=== PATIENT | female | born 1940 | race Caucasian/White ===

== ENCOUNTER 2017-11-13 15:22 | Emergency (ER) | payer MEDICARE ==
--- NOTE | 2017-11-13 16:02 | ER Document Report ---
ED General - General Chief Complaint: Back Injury Stated Complaint: DIZZINESS Time Seen by Provider: 11/13/17 15:35 Notes: The patient is a 77-year-old female, PMHx vertigo (takes meclizine at home), hypertension, presents after she had 2 falls yesterday and today. She is feeling like the room is spinning, worse when she quickly moves her head. Patient tried her meclizine earlier today with only mild relief of her symptoms. She did not hit her head denies any injuries from the falls. She denies chest pain, shortness of breath, focal weakness, numbness, tingling, blurry vision, neck stiffness, abdominal pain, syncope or LOC. TRAVEL OUTSIDE OF THE [place] IN LAST 30 DAYS: No - Related Data Allergies/Adverse Reactions: No Known Allergies Allergy (Verified 11/13/17 15:41) Home Medications: Current Home Medications Albuterol Sulfate [Proair Hfa] 8.5 gm IH TID 11/13/17 [History] Albuterol Sulfate [Ventolin Hfa] 1 puff IH DAILY 11/13/17 [History] Amlodipine Besylate [Amlodipine Besylate] 1 tab PO DAILY 11/13/17 [History] Aspirin [Ecotrin] 81 mg PO DAILY 11/13/17 [History] Calcium Carbonate/Vitamin D3 [Calcium 500-Vit D3 200 Tablet] 1 each PO DAILY [History] Citalopram Hydrobromide [Citalopram HBr] 1 tab PO DAILY 11/13/17 [History] Ferrous Sulfate 325 mg PO TID 11/13/17 [History] Gabapentin 300 mg PO TID 11/13/17 [History] Insulin Glargine,Hum.rec.anlog [Touanna Solostar] 50 units SQ DAILY 11/13/17 [ History] Oxybutynin Chloride 5 mg PO BID 11/13/17 [History] Pantoprazole Sodium 40 mg PO DAILY 11/13/17 [History] Simvastatin 40 mg PO DAILY 11/13/17 [History] Tiotropium [place] [Spiriva] 1 puff IN BID 11/13/17 [History] Past Medical History - General Information source: Patient - Social History Smoking Status: Never Smoker Chew tobacco use (# tins/day): No Frequency of alcohol use: None Drug Abuse: None Family History: Reviewed & Not Pertinent Patient has suicidal ideation: No Patient has homicidal ideation: No - Past Medical History Cardiac Medical History: Reports: Hx Heart Attack, Hx Hypercholesterolemia, Hx Hypertension Pulmonary Medical History: Reports: Hx COPD Endocrine Medical History: Reports: Hx Diabetes Mellitus Type 2 Renal/ Medical History: Denies: Hx Peritoneal Dialysis GI Medical History: Reports: Hx Gastroesophageal Reflux Disease Past Surgical History: Reports: Hx Abdominal Surgery, Hx Cholecystectomy, Hx Hysterectomy Review of Systems - Review of Systems Notes: REVIEW OF SYSTEMS: CONSTITUTIONAL: -fevers, -chills EENT: -eye pain, -difficulty swallowing, -nasal congestion CARDIOVASCULAR:-chest pain, -syncope. RESPIRATORY: -cough, -SOB GASTROINTESTINAL: -abdominal pain, - nausea, -vomiting, -diarrhea GENITOURINARY: -dysuria, -hematuria MUSCULOSKELETAL: -back pain, -neck pain SKIN: -rash or skin lesions. HEMATOLOGIC: -easy bruising or bleeding. LYMPHATIC: -swollen, enlarged glands. NEUROLOGICAL: -altered mental status or loss of consciousness, -headache, - neurologic symptoms, +vertiginous symptoms PSYCHIATRIC: -anxiety, -depression. ALL OTHER SYSTEMS REVIEWED AND NEGATIVE. Physical Exam - Vital signs Vitals: Temp Resp BP Pulse Ox 98.1 F 16 169/64 H 100 11/13/17 15:38 11/13/17 15:38 11/13/17 15:38 11/13/17 15:38 - Notes Notes: PHYSICAL EXAMINATION: GENERAL: Well-appearing, well-nourished and in no acute distress. HEAD: Atraumatic, normocephalic. EYES: Pupils equal round and reactive to light, extraocular movements intact, sclera anicteric, conjunctiva are normal. ENT: nares patent, oropharynx clear without exudates. Moist mucous membranes. NECK: Normal range of motion, supple without lymphadenopathy LUNGS: Breath sounds clear to auscultation bilaterally and equal. No wheezes rales or rhonchi. HEART: Regular rate and rhythm without murmurs ABDOMEN: Soft, nontender, normoactive bowel sounds. No guarding, no rebound. No masses appreciated. EXTREMITIES: Normal range of motion, no pitting or edema. No cyanosis. NEUROLOGICAL: Cranial nerves grossly intact. No nystagmus. Positive past- pointing with her left hand. Slowed alternative rapid hand movements. No ataxia. PSYCH: Normal mood, normal affect. SKIN: Warm, Dry, normal turgor, no rashes or lesions noted. Course - Re-evaluation Re-evalutation: Patient with 2 episodes of a fall without any serious injury noted. Due to her age and comorbidities with positive posterior cerebellar signs on physical exam , MRI was obtained to assess for cerebellar infarcts. MRI does not show any evidence of cerebellar involvement. She has a known history of BPPV and takes meclizine. Provided her with a dose of her meclizine and her symptoms improved. Instructed her to follow-up with the primary care physician and neurologist for further evaluation and treatment. Also taught her some Arpan maneuvers to use at home. - Vital Signs Vital signs: Temp Pulse Resp BP Pulse Ox 98.1 F 20 154/59 H 99 11/13/17 15:38 11/13/17 18:01 11/13/17 18:01 11/13/17 18:01 - Laboratory Result Diagrams: 11/13/17 16:30 11/13/17 16:30 Laboratory results interpreted by me: 11/13/17 11/13/17 16:30 16:30 RDW 15.4 H Sodium 145.2 H Chloride 108 H Glucose 152 H Calcium 10.6 H AST 40 H Alkaline Phosphatase 166 H - Diagnostic Test Radiology reviewed: Image reviewed, Reports reviewed Radiology results interpreted by me: MRI: NAD. Chronic changes. CXR: NAD - EKG Interpretation by Me EKG shows normal: Sinus rhythm, Rupert, Intervals, QRS Complexes, ST-T Waves Rate: Normal Discharge - Discharge Clinical Impression: Vertiginous syndrome Condition: Stable Disposition: HOME, SELF-CARE Additional Instructions: Vertigo You have experienced an episode of vertigo -- a whirling dizziness which may be accompanied by nausea and vomiting or staggering. Vertigo is often caused by an irritation of the inner ear, in which case it is called labyrinthitis. It can also be a symptom of a degenerating inner ear, nerve damage, or brain injury. Your physician has evaluated you to determine whether any further testing is necessary. Vertigo is often treated with dramamine or meclizine. These medications are helpful, but stronger medication may be needed if you are vomiting. Rest in bed. You should not drive or operate machinery until completely better. It may take one to three weeks for recovery. If there are new symptoms, such as decreased hearing or vision, severe headache, weakness or faintness, or confusion, call the physician. Forms: Elevated Blood Pressure Referrals: MARANDA LANGLEY MD [ACTIVE STAFF] - Follow up as needed
--- NOTE | 2017-11-13 16:20 | RADIOLOGY REPORT (SQ) ---
EXAM DESCRIPTION: CHEST SINGLE VIEW COMPLETED DATE/TIME: 11/13/2017 4:06 pm REASON FOR STUDY: SOB COMPARISON: Two-view chest 09/03/2013 CT angio chest 09/04/2013 EXAM PARAMETERS: NUMBER OF VIEWS: One view. TECHNIQUE: Single frontal radiographic view of the chest acquired. RADIATION DOSE: NA LIMITATIONS: None. FINDINGS: LUNGS AND PLEURA: No opacities, masses or pneumothorax. No pleural effusion. MEDIASTINUM AND HILAR STRUCTURES: No masses. Contour normal. HEART AND VASCULAR STRUCTURES: Heart normal in size. Normal vasculature. BONES: No acute findings. HARDWARE: None in the chest. OTHER: No other significant finding. IMPRESSION: NO ACUTE RADIOGRAPHIC FINDING IN THE CHEST. TECHNICAL DOCUMENTATION: JOB ID: [id number] [employer]- All Rights Reserved
[2017-11-13 16:42] LABS: ABSOLUTE BASOPHILS # (AUTO) 0.1 10^3/uL (0.0-0.2); ABSOLUTE EOSINOPHILS # (AUTO) 0.1 10^3/uL (0.0-0.6); ABSOLUTE LYMPHOCYTES (AUTO) 2.9 10^3/uL (0.5-4.7); ABSOLUTE MONOCYTES (AUTO) 0.7 10^3/uL (0.1-1.4); ABSOLUTE NEUT (AUTO) 5.7 10^3/uL (1.7-8.2); BASOPHILS % (AUTO) 0.6 % (0-2); EOSINOPHILS % (AUTO) 0.9 % (0-6); HEMATOCRIT 40.7 % (36.0-47.0); HEMOGLOBIN 13.7 g/dL (12.0-15.5); HGB HCT DIFFERENCE 0.4; MEAN CORPUSCULAR HEMOGLOBIN 29.1 pg (27.0-33.4); MEAN CORPUSCULAR HGB CONC 33.7 g/dL (32.0-36.0); MEAN CORPUSCULAR VOLUME 86 fl (80-97); MONOCYTES % (AUTO) 7.4 % (3-13); RED BLOOD COUNT 4.71 10^6/uL (3.72-5.28); RED CELL DISTRIBUTION WIDTH 15.4 % (11.5-14.0); SEGMENTED NEUTROPHILS % (AUTO) 60.1 % (42-78); WHITE BLOOD COUNT 9.5 10^3/uL (4.0-10.5)
[2017-11-13 17:06] LABS: ALANINE AMINOTRANSFERASE 42 U/L (9-52); ALBUMIN 4.3 g/dL (3.5-5.0); ALKALINE PHOSPHATASE 166 U/L (38-126); ANION GAP 15 (5-19); ASPARTATE AMINO TRANSFERASE 40 U/L (14-36); BILIRUBIN,DIRECT 0.3 mg/dL (0.0-0.4); BILIRUBIN,TOTAL 0.5 mg/dL (0.2-1.3); BLOOD UREA NITROGEN 20 mg/dL (7-20); CALCIUM 10.6 mg/dL (8.4-10.2); CARBON DIOXIDE 22 mmol/L (22-30); CHLORIDE 108 mmol/L (98-107); CREATINE KINASE 61 U/L (30-135); CREATININE RESULT 0.72 mg/dL (0.52-1.25); GLUCOSE 152 mg/dL (75-110); LIPASE 99.5 U/L (23-300); POTASSIUM 3.7 mmol/L (3.6-5.0); SODIUM 145.2 mmol/L (137-145); TOTAL PROTEIN 8.1 g/dL (6.3-8.2)
[2017-11-13 17:14] LABS: TROPONIN I < 0.012 ng/mL
--- NOTE | 2017-11-13 17:58 | EKG REPORT ---
SEVERITY:- NORMAL ECG - SINUS RHYTHM : Confirmed by: Lanre Aguirre MD 13-Nov-2017 17:58:20
--- NOTE | 2017-11-13 19:51 | RADIOLOGY REPORT (SQ) ---
EXAM DESCRIPTION: MRI HEAD WITHOUT COMPLETED DATE/TIME: 11/13/2017 7:07 pm REASON FOR STUDY: ataxia, frequent falls COMPARISON: None. TECHNIQUE: Multiplanar imaging includes non-contrasted T1, T2, FLAIR, and diffusion with ADC map seq uences. Images stored on PACS. LIMITATIONS: None. FINDINGS: ANATOMY: No anomalies. Normal vascular flow voids. Pituitary fossa normal. CSF SPACES: Atrophy induced prominence of ventricles and CSF spaces. CEREBRUM: High signal intensity lesions scattered throughout the white matter on FLAIR imaging with d istribution suggesting micro-vascular ischemic changes. No evidence of hemorrhage, mass, or extraaxi al fluid collection. POSTERIOR FOSSA: No signal alteration. No hemorrhage. No edema, masses or mass effect. Internal negro tory canals, cerebello-pontine angles, mastoids normal. DIFFUSION IMAGING: Negative for acute or sub-acute infarction. ORBITS: No masses. Globes normal. PARANASAL SINUSES: No fluid levels. Mucosa normal. OTHER: No other significant finding. IMPRESSION: Negative for acute or sub-acute infarction.ATROPHY AND CHRONIC MICRO-VASCULAR ISCHEMIC C PRISCILLA.. EVIDENCE OF ACUTE STROKE: NO. TECHNICAL DOCUMENTATION: JOB ID: [id number] [place]-[id number] 2010 [employer]- All Rights Reserved
[2017-11-13] MEDS ORDERED: MECLIZINE HCL 25 MG TABLET PO ONE (20:00)
[2017-11-13] MEDS ORDERED: DIAZEPAM 2 MG TABLET PO ONE (20:05)
[2017-11-13 21:09] VITALS: BP 133/58
== END 2017-11-13 20:50 | disposition home or self-care (01) ==
LOC: ER 15:22
DX: H81.10 Benign paroxysmal vertigo, unspecified ear (principal); Z79.899 Other long term (current) drug therapy; I10 Essential (primary) hypertension; I25.2 Old myocardial infarction; J44.9 Chronic obstructive pulmonary disease, unspecified; E11.9 Type 2 diabetes mellitus without complications; Z91.81 History of falling
CPT/HCPCS: 93005; 99285; 36415; 82550; 83690; 85025; 80053; 84484; 83880; 70551; 71010; 93010; A9270 ×2; J3490

== ENCOUNTER 2017-11-21 00:02 | Emergency (ER) | payer MEDICARE ==
[2017-11-21] MEDS ORDERED: METHYLPREDNISOLONE INJ 125 MG/2 ML SDV IV ONE (00:26)
[2017-11-21] MEDS ORDERED: IPRATROPIUM/ALBUTEROL 0.5-2.5 MG/3 ML AMPUL NEB ONE (00:26)
--- NOTE | 2017-11-21 00:52 | ER Document Report ---
ED General - General Chief Complaint: Cough Stated Complaint: SICK Time Seen by Provider: 11/21/17 00:14 Notes: Patient is a 77 year old female who presents to the ED via EMS with a chief complaint of cough since yesterday per son. He states it started yesterday and has not responded to cough medicine or the one albuterol treatment they did at home. H/o COPD not on home O2. Denies chest pain but admits to shortness of breath. Had minimal relief with albuterol treatment x1 at home. Denies NAGEL, orthopnea. She also admits to vertigo with minimal improvement on her antivert. her son at the bedside states she did really well s/p d/c from the department a week ago after a dose of valium with her antivert. States she didnt have any dizziness and felt stable at home after the valium. Her son states she was doing really well until it wore off. He denies any recent falls or head injuries. Not on blood thinners. Per EMS, had a temp of 100.4 and she received 975mg of acetaminophen [employer] MA[employer] TRAVEL OUTSIDE OF THE [place] IN LAST 30 DAYS: No - Related Data Allergies/Adverse Reactions: No Known Allergies Allergy (Verified 11/13/17 15:41) Past Medical History - Social History Smoking Status: Former Smoker Family History: Reviewed & Not Pertinent - Past Medical History Cardiac Medical History: Reports: Hx Heart Attack, Hx Hypercholesterolemia, Hx Hypertension Pulmonary Medical History: Reports: Hx COPD Endocrine Medical History: Reports: Hx Diabetes Mellitus Type 2 Renal/ Medical History: Denies: Hx Peritoneal Dialysis GI Medical History: Reports: Hx Gastroesophageal Reflux Disease Past Surgical History: Reports: Hx Abdominal Surgery, Hx Cholecystectomy, Hx Hysterectomy Review of Systems - Review of Systems Constitutional: See HPI EENT: No symptoms reported Cardiovascular: No symptoms reported Respiratory: See HPI Gastrointestinal: No symptoms reported Genitourinary: No symptoms reported Neurological/Psychological: See HPI -: Yes All other systems reviewed and negative Physical Exam - Vital signs Vitals: Temp Resp 100.4 F 20 11/21/17 00:25 11/21/17 00:25 - Notes Notes: PHYSICAL EXAM GENERAL: Alert, interacts well. HEAD: Normocephalic, atraumatic. EYES: Pupils equal, round, and reactive to light. Extraocular movements intact. positive yazmin hallpike with horizontal nystagmus ENT: Oral mucosa moist, tongue midline. NECK: Full range of motion. Supple. Trachea midline. LUNGS: Bilateral rhonchi without what when he Premier Vicryl and then she is related to be set really she is is is to 2 she look is is respiratory distress. HEART: Regular rate and rhythm. No murmurs, gallops, or rubs. ABDOMEN: Soft, nondistended, nontender. No guarding, rebound, or rigidity.. Bowel sounds present in all 4 quadrants. EXTREMITIES: Moves all 4 extremities spontaneously. No edema, radial and dorsalis pedis pulses 2/4 bilaterally. No cyanosis. NEUROLOGICAL: Alert and oriented x4. Normal speech. Face symmetric. Tongue protrudes midline. Extraocular motions intact. Pupils are 2 mm and equally reactive. Normal speech, normal gait. 5 out of 5 strength in both the distal and proximal upper and lower extremities bilaterally. Sensation is grossly intact throughout. Finger to nose testing normal. Pronator drift normal. PSYCH: Normal affect, normal mood. SKIN: Warm, dry, normal turgor. No rashes or lesions noted. Course - Re-evaluation Re-evalutation: 11/21/17 04:45 Patient is a 77-year-old female who is hemodynamically stable, no acute distress and initially afebrile. Upon recheck of her temperature it was down to 98.4. Patient states she clinically feels better after nebulizer treatments. No evidence of pneumonia noted on chest x-ray. White blood cells elevated at 15. Chemistry stable without any evidence of electrolyte abnormalities, renal failure. Urinalysis shows evidence of UTI. Patient be treated with IV antibiotics and p.o. upon discharge. Patient and son at the bedside requesting to be discharged home. Regarding her vertigo, she states complete symptom relief after antivert and valium. Had a normal MRI within the past 7 days. No evidence of abnormal gait during ambulation or hypoxia. Will discharge home and to follow up with PCP and ENT. - Vital Signs Vital signs: Temp Pulse Resp BP Pulse Ox 97.9 F 15 155/56 H 93 11/21/17 04:48 11/21/17 05:01 11/21/17 05:01 11/21/17 05:01 - Laboratory Result Diagrams: 11/21/17 01:10 11/21/17 01:10 Laboratory results interpreted by me: 11/21/17 11/21/17 11/21/17 01:10 01:10 01:56 WBC 15.6 H RDW 14.9 H Seg Neutrophils % 80.6 H Lymphocytes % 9.2 L Absolute Neutrophils 12.6 H Glucose 350 H POC Glucose 363 H Alkaline Phosphatase 151 H Urine Glucose (UA) Urine Urobilinogen Ur Leukocyte Esterase 11/21/17 11/21/17 03:10 04:50 WBC RDW Seg Neutrophils % Lymphocytes % Absolute Neutrophils Glucose POC Glucose 287 H Alkaline Phosphatase Urine Glucose (UA) >=500 H Urine Urobilinogen 2.0 H Ur Leukocyte Esterase MODERATE H - Diagnostic Test Radiology reviewed: Image reviewed, Reports reviewed - EKG Interpretation by Me EKG shows normal: Sinus rhythm Rate: Normal Rhythm: NSR When compared to previous EKG there are: No significant change Discharge - Discharge Clinical Impression: COPD exacerbation, Vertigo UTI (urinary tract infection) Qualifiers: Urinary tract infection type: acute cystitis Hematuria presence: without hematuria Qualified Code(s): N30.00 - Acute cystitis without hematuria Condition: Good Disposition: HOME, SELF-CARE Additional Instructions: Chronic Obstructive Lung Disease You have chronic obstructive lung disease (COPD). The symptoms come from emphysema (damage to small airways, with trapping of air in large sacks in the lung) and chronic bronchitis (repeated infection and damage to larger airways). The cause is almost always cigarette smoking, although dust exposure, asthma, and infections contribute. You should avoid fumes, dust, and smoke (especially tobacco smoke). Your condition will flare from time to time. There is no cure, but the symptoms can be treated. Bronchodilators (asthma medicine) are often helpful. Antibiotics help when infection is present. When shortness of breath is severe, we may prescribe cortisone medication. If medicine doesn't help enough, we can arrange for you to have an oxygen tank at home. Notify your doctor at once if sputum becomes thick, foul, or bloody, if you develop a fever or chest pain, or if your shortness of breath worsens. Vertigo You have experienced an episode of vertigo -- a whirling dizziness which may be accompanied by nausea and vomiting or staggering. Vertigo is often caused by an irritation of the inner ear, in which case it is called labyrinthitis. It can also be a symptom of a degenerating inner ear, nerve damage, or brain injury. Your physician has evaluated you to determine whether any further testing is necessary. Vertigo is often treated with dramamine or meclizine. These medications are helpful, but stronger medication may be needed if you are vomiting. Rest in bed. You should not drive or operate machinery until completely better. It may take one to three weeks for recovery. If there are new symptoms, such as decreased hearing or vision, severe headache, weakness or faintness, or confusion, call the physician. PYELONEPHRITIS: Your evaluation shows evidence of pyelonephritis. This is an infection in the kidney. Typical symptoms are fever, pain in the flank, pain on urination, and frequent urination. Many cases of pyelonephritis can be treated at home. Hospital care may be necessary for patients who are very ill, or elderly or . Pyelonephritis is treated with antibiotics. Be sure to take all the medication as prescribed. Drink plenty of liquids (about three quarts per day) . You may take acetaminophen for fever. You should feel significantly improved within two days. You should have a recheck of your urine in about one week to insure that the infection is gone. Return for a re-examination if your symptoms worsen in any way -- such as high fever, shaking chills, severe weakness or dizziness, severe pain, or inability to pass your urine. ANTIBIOTIC THERAPY: You have been given an antibiotic prescription. It's important that you take all the medication, unless instructed otherwise by your physician. Failure to complete the entire course can result in relapse of your condition. Common side effects of antibiotics include nausea, intestinal cramping, or diarrhea. Women may develop vaginal yeast infections, and babies can get yeast (thrush) in the mouth following the use of antibiotics. Contact your physician if you develop significant side effects from this medication. Allergy to this antibiotic can result in hives, wheezing, faintness, or itching. If symptoms of allergy occur, stop the medication and call the doctor. ROCEPHIN: You have been given an injection of an antibiotic called Rocephin ( ceftriaxone). Sometimes the injection must be combined with antibiotic pills. For some infections, such as an uncomplicated ear infection, Rocephin provides all the antibiotic that's needed. The antibiotic will be in your body for about two days. For serious infections, we usually repeat doses of Rocephin daily. Side effects are very unusual following a shot. Women may develop vaginal yeast infections, and babies can get yeast (thrush) in the mouth following the use of antibiotics. Contact your physician if you have symptoms with this medication. Allergy to this antibiotic can result in hives, wheezing, faintness, or itching. If symptoms of allergy occur, call the doctor at once. CEPHALEXIN: The antibiotic you've been prescribed is a member of the cephalosporin class. This type of antibiotic covers a wide variety of infections, including those of the skin, lungs, and urinary tract. It's useful for staph infections. This antibiotic is slightly similar to the penicillin family. In rare cases , a person who is allergic to penicillin will also be allergic to this medication. If you have had a severe allergic reaction to penicillin, and have not taken this antibiotic since that time, notify your doctor. Antibiotics which cover many germs ("broad spectrum" antibiotics) are more likely to cause diarrhea or "yeast" infections. Women prone to vaginal yeast problems may suffer an attack after taking this antibiotic. In infants, oral thrush (white spots "stuck" on the cheek) or yeast diaper rash may result. See your doctor if these problems occur. Call at once if you develop itching, hives , shortness of breath, or lightheadedness. USE OF ACETAMINOPHEN (Tylenol): Acetaminophen may be taken for pain relief or fever control. It's much safer than aspirin, offering a wider range of "safe" dosages. It is safe during . Some brand names are Tylenol, Panadol, Datril, Anacin 3, Tempra, and Liquiprin. Acetaminophen can be repeated every four hours. The following are maximum recommended dosages: >89 pounds or adults 650 mg to 900 mg Acetaminophen can be repeated every four hours. Maximum dose not to exceed 4000 mg a day. FOLLOW-UP CARE: If you have been referred to a physician for follow-up care, call the physician s office for an appointment as you were instructed or within the next two days. If you experience worsening or a significant change in your symptoms, notify the physician immediately or return to the Emergency Department at any time for re-evaluation. Prescriptions: Cephalexin Monohydrate [Keflex 500 mg Capsule] 500 mg PO Q8H 10 Days capsule Diazepam [Valium 2 mg Tablet] 2 mg PO BID #14 tablet Prednisone 20 mg PO TID 5 Days tablet Referrals: [facility] [Provider Group] - Follow up in 1 week DESTINEE WHITE MD [ACTIVE STAFF] - Follow up in 1 week ANSELMO DALAL MD [ACTIVE STAFF] - Follow up in 1 week FRANCISCO CHAVEZ DO [ASSOCIATE] - Follow up in 1 week
[2017-11-21] MEDS: ALBUTEROL SULFATE 0.083% NEB 2.5 MG/3 ML AMPUL NEB SCH ×2 (01:00→01:02)
--- NOTE | 2017-11-21 01:17 | RADIOLOGY REPORT (SQ) ---
EXAM DESCRIPTION: CHEST SINGLE VIEW CLINICAL HISTORY: cough, shortness of breath COMPARISON: 09/13/2017 FINDINGS: Single frontal view of the chest. Tortuosity of thoracic aorta. Leads overlie the chest. Heart is not enlarged. No consolidation, pneumothorax, or pleural effusion. No displaced rib fractures identified. Upper abdominal soft tissues are unremarkable. IMPRESSION: 1. No acute pulmonary process identified.
[2017-11-21 01:23] LABS: ABSOLUTE BASOPHILS # (AUTO) 0.1 10^3/uL (0.0-0.2); ABSOLUTE EOSINOPHILS # (AUTO) 0.1 10^3/uL (0.0-0.6); ABSOLUTE LYMPHOCYTES (AUTO) 1.4 10^3/uL (0.5-4.7); ABSOLUTE MONOCYTES (AUTO) 1.4 10^3/uL (0.1-1.4); ABSOLUTE NEUT (AUTO) 12.6 10^3/uL (1.7-8.2); BASOPHILS % (AUTO) 0.4 % (0-2); EOSINOPHILS % (AUTO) 0.9 % (0-6); HEMATOCRIT 37.6 % (36.0-47.0); HEMOGLOBIN 12.7 g/dL (12.0-15.5); LYMPHOCYTES % (AUTO) 9.2 % (13-45); MEAN CORPUSCULAR HEMOGLOBIN 29.2 pg (27.0-33.4); MEAN CORPUSCULAR HGB CONC 33.8 g/dL (32.0-36.0); MEAN CORPUSCULAR VOLUME 87 fl (80-97); MONOCYTES % (AUTO) 8.9 % (3-13); PLATELET COUNT 224 10^3/uL (150-450); RED BLOOD COUNT 4.33 10^6/uL (3.72-5.28); RED CELL DISTRIBUTION WIDTH 14.9 % (11.5-14.0); SEGMENTED NEUTROPHILS % (AUTO) 80.6 % (42-78); TOTAL CELLS COUNTED % (AUTO) 100 %; WHITE BLOOD COUNT 15.6 10^3/uL (4.0-10.5)
[2017-11-21 01:37] LABS: ALANINE AMINOTRANSFERASE 45 U/L (9-52); ALBUMIN 3.8 g/dL (3.5-5.0); ALKALINE PHOSPHATASE 151 U/L (38-126); ANION GAP 14 (5-19); ASPARTATE AMINO TRANSFERASE 23 U/L (14-36); BILIRUBIN,DIRECT 0.3 mg/dL (0.0-0.4); BILIRUBIN,TOTAL 0.8 mg/dL (0.2-1.3); BLOOD UREA NITROGEN 19 mg/dL (7-20); CALCIUM 10.2 mg/dL (8.4-10.2); CARBON DIOXIDE 23 mmol/L (22-30); CHLORIDE 106 mmol/L (98-107); GLUCOSE 350 mg/dL (75-110); POTASSIUM 3.8 mmol/L (3.6-5.0); SODIUM 143.1 mmol/L (137-145); TOTAL PROTEIN 7.2 g/dL (6.3-8.2)
[2017-11-21 01:50] LABS: NT PRO BNP 117 pg/mL (<450)
[2017-11-21 01:52] LABS: TROPONIN I < 0.012 ng/mL
[2017-11-21] MEDS ORDERED: INSULIN LISPRO 100 UNIT/ML 3 ML VIAL SUBCUT ONE (01:59)
--- NOTE | 2017-11-21 02:50 | RADIOLOGY REPORT (SQ) ---
EXAM DESCRIPTION: ACUTE ABDOMEN SERIES CLINICAL HISTORY: abdominal distension COMPARISON: None. FINDINGS: Single view of the chest and 2 views of the abdomen. Atherosclerotic calcification aortic arch. Heart is not enlarged. No consolidation, pneumothorax, or pleural effusion. Leads overlie the chest. No displaced rib fractures. Upright spine views of the abdomen demonstrate scattered loops of nondilated air-filled large and small bowel. Moderate amount stool within the colon. Mild degenerative change of the hips and lumbar spine. Leads overlie the abdomen. No free intraperitoneal air. IMPRESSION: 1. No acute pulmonary process. Nonobstructive bowel gas pattern.
[2017-11-21 03:55] LABS: APPEARANCE,URINE SLIGHTLY-CLOUDY; BILIRUBIN,URINE NEGATIVE (NEGATIVE); COLOR,URINE YELLOW; GLUCOSE, URINE >=500 mg/dL (NEGATIVE); KETONES,URINE NEGATIVE (NEGATIVE); LEUKOCYTE ESTERASE,URINE MODERATE (NEGATIVE); NITRITE,URINE NEGATIVE (NEGATIVE); PROTEIN,URINE NEGATIVE (NEGATIVE); URINE SPECIFIC GRAVITY 1.027
[2017-11-21] MEDS ORDERED: CEFTRIAXONE 1 GM/D5W RTU 1 GM/50 ML RTUPB IV ONE (04:13)
[2017-11-21] MEDS ORDERED: DIAZEPAM 2 MG TABLET PO ONE (04:30)
[2017-11-21] MEDS ORDERED: MECLIZINE HCL 25 MG TABLET PO ONE (04:30)
[2017-11-21 05:23] VITALS: BP 155/56
--- NOTE | 2017-11-23 12:38 | EKG REPORT ---
SEVERITY:- NORMAL ECG - SINUS RHYTHM : Confirmed by: Giovana Morales MD 23-Nov-2017 12:37:31
== END 2017-11-21 05:24 | disposition home or self-care (01) ==
LOC: ER 00:02
DX: J44.1 Chronic obstructive pulmonary disease with (acute) exacerbation (principal); N30.00 Acute cystitis without hematuria; R05 Cough; R06.02 Shortness of breath; R42 Dizziness and giddiness; I10 Essential (primary) hypertension; I25.2 Old myocardial infarction; E11.9 Type 2 diabetes mellitus without complications; Z87.891 Personal history of nicotine dependence
CPT/HCPCS: 93005; 94640 ×2; 99284; 96375; 96365; 36415; 87086; 82962; 85025; 80053; 81001; 84484; 83880; 74022; 71010; 93010; A9270 ×5; J2930; J0696; J1815; J3490; J7620

== ENCOUNTER 2018-04-13 02:28 | Emergency (ER) | payer MEDICARE ==
--- NOTE | 2018-04-13 02:48 | ER Document Report ---
ED General - General Mode of Arrival: Medic Information source: Patient, Emergency Med Personnel TRAVEL OUTSIDE OF THE [place] IN LAST 30 DAYS: No - General Stated Complaint: FALL/LEG PAIN Time Seen by Provider: 04/13/18 02:33 Notes: Patient is a 77 year old female with a history of dementia presents to the emergency department via EMS complaining of right leg pain. EMS states the patient fell last week after attempting to sit on a toilet, injuring her right leg and has been going to physical therapy. EMS further states the patient has an xray of her right leg scheduled with her physical therapist. EMS states she was alert and oriented prior to arrival to the emergency department. At bedside patient is alert to place but not respond when asked questions on person or time. EMS states the family reports feeling like the patient is not quite herself stating she seems confused when she is normally very independent. ( DEVONTE MTZ) - Related Data Allergies/Adverse Reactions: No Known Allergies Allergy (Verified 11/13/17 15:41) Past Medical History - General Information source: Patient, Emergency Med Personnel - Social History Smoking Status: Unknown if Ever Smoked Family History: Reviewed & Not Pertinent - Past Medical History Cardiac Medical History: Reports: Hx Heart Attack, Hx Hypercholesterolemia, Hx Hypertension Pulmonary Medical History: Reports: Hx COPD Endocrine Medical History: Reports: Hx Diabetes Mellitus Type 2 GI Medical History: Reports: Hx Gastroesophageal Reflux Disease Past Surgical History: Reports: Hx Abdominal Surgery, Hx Cholecystectomy, Hx Hysterectomy Review of Systems - Review of Systems Constitutional: No symptoms reported EENT: No symptoms reported Cardiovascular: No symptoms reported Respiratory: No symptoms reported Gastrointestinal: No symptoms reported Female Genitourinary: No symptoms reported Musculoskeletal: See HPI Skin: No symptoms reported Hematologic/Lymphatic: No symptoms reported Neurological/Psychological: No symptoms reported -: Yes All other systems reviewed and negative Physical Exam - Vital signs Vitals: Temp Pulse Resp BP Pulse Ox 99.8 F 90 18 184/69 H 97 04/13/18 02:30 04/13/18 02:30 04/13/18 02:30 04/13/18 02:30 04/13/18 02:30 - Notes Notes: GENERAL: Alert, follows some commands. No acute distress. HEAD: Normocephalic, atraumatic. EYES: Pupils equal, round, and reactive to light. Extraocular movements intact. ENT: Oral mucosa moist, tongue midline. NECK: Full range of motion. Supple. Trachea midline. LUNGS: Clear to auscultation bilaterally, no wheezes, rales, or rhonchi. No respiratory distress. HEART: Regular rate and rhythm. No murmurs, gallops, or rubs. ABDOMEN: Soft, non-tender. Non-distended. Bowel sounds present in all 4 quadrants. EXTREMITIES: Moves all 4 extremities spontaneously, intermittent tremors of the BLE and BUE. Hematoma to the lateral aspect of the right thigh with extensive ecchymosis down to just behind the right knee. Tender to palpation to the right greater trochanter. FROM of right hip, no pain with log roll, 5/5 muscle strength when attempting to resist exam. Radial and dorsalis pedis pulses 2/4 bilaterally. No cyanosis. NEUROLOGICAL: Fluctuating orientation, EMS reports alert and oriented x3, at bedside patient is alert to place but not to time or person. Normal speech. PSYCH: Normal affect, normal mood. SKIN: Warm, dry, and normal turgor. (DEVONTE MTZ) Course - Re-evaluation Re-evalutation: 04/13/18 04:41 Physical exam shows a large hematoma affecting the muscle however x-ray does not show any fracture. Patient is able to be moved through full range of motion and has 5 out of 5 muscle strength. Doubt occult fracture, no indication for CT scan at this time. Patient will be discharged back to home. ( CUCO KEARNEY) - Vital Signs Vital signs: Temp Pulse Resp BP Pulse Ox 99.8 F 90 18 184/69 H 97 04/13/18 02:30 04/13/18 02:30 04/13/18 02:30 04/13/18 02:30 04/13/18 02:30 Discharge - Discharge Clinical Impression: Acute right hip pain, Essential hypertension Dementia Qualifiers: Dementia type: Alzheimer's disease Alzheimer's disease onset: unspecified onset Dementia behavioral disturbance: without behavioral disturbance Qualified Code(s): G30.9 - Alzheimer's disease, unspecified Condition: Stable Disposition: HOME, SELF-CARE Additional Instructions: Today your x-ray did not show any signs of a broken hip. I was able to move your leg through its full range of motion without pain. It is very unlikely that you have a fracture given the negative x-ray and the lack of pain when I move her hip however if your pain persists you may consider getting a CAT scan of the right hip. Serge Attestation: 04/13/18 06:13 I personally performed the services described in the documentation, reviewed and edited the documentation which was dictated to the scribe in my presence, and it accurately records my words and actions. (CUCO KEARNEY) Faizaibe Documentation - Scribe Written by Serge:: Serge Cowan, 04/13/2018 02:54 acting as scribe for :: Wendy
--- NOTE | 2018-04-13 03:34 | RADIOLOGY REPORT (SQ) ---
EXAM DESCRIPTION: Right hip, 2 views CLINICAL HISTORY: fall 1 week ago with pain with ambulation COMPARISON: None. FINDINGS: Single view of the pelvis and 2 views of the right hip. Osteopenia. Atherosclerotic vascular calcification. Mild bilateral joint space narrowing. No acute fracture identified. Pelvic soft tissues are unremarkable. IMPRESSION: 1. No acute fracture or dislocation.
[2018-04-13 08:58] VITALS: BP 152/50
== END 2018-04-13 08:58 | disposition home or self-care (01) ==
LOC: ER 02:28
DX: M25.551 Pain in right hip (principal); S70.11XA Contusion of right thigh, initial encounter; W19.XXXA Unspecified fall, initial encounter; Y93.89 Activity, other specified; G30.9 Alzheimer's disease, unspecified; F02.80 Dementia in other diseases classified elsewhere, unspecified severity, without behavioral disturbance, psychotic disturbance, mood disturbance, and anxiety; I10 Essential (primary) hypertension; J44.9 Chronic obstructive pulmonary disease, unspecified; E11.9 Type 2 diabetes mellitus without complications
CPT/HCPCS: 99284

== ENCOUNTER 2018-04-13 20:03 | Inpatient (IN) | payer MEDICARE ==
--- NOTE | 2018-04-13 20:23 | ER Document Report ---
ED General - General Mode of Arrival: Medic Cannot obtain history due to: Altered mental status TRAVEL OUTSIDE OF THE [place] IN LAST 30 DAYS: No <LOBO BLOUNT - Last Filed: 04/14/18 00:04> <TASHA DAO - Last Filed: 04/14/18 01:22> - General Chief Complaint: Altered Mental Status Stated Complaint: AMS Time Seen by Provider: 04/13/18 20:07 Notes: Patient is a 77-year-old female who presents to the emergency department today with complaints of altered mental status. Patient was seen and discharged from this facility earlier today for evaluation of right hip secondary to a fall. Patient was saturating 86% on room air with a fever of 104.0F according to EMS. History is limited secondary to the patient's medical condition. (LOBO BLOUNT) - Related Data Allergies/Adverse Reactions: No Known Allergies Allergy (Verified 11/13/17 15:41) Past Medical History - General Information source: [facility] Records - Social History Smoking Status: Unknown if Ever Smoked Frequency of alcohol use: None Drug Abuse: None Family History: Reviewed & Not Pertinent - Past Medical History Cardiac Medical History: Reports: Hx Heart Attack, Hx Hypercholesterolemia, Hx Hypertension Pulmonary Medical History: Reports: Hx COPD Endocrine Medical History: Reports: Hx Diabetes Mellitus Type 2 GI Medical History: Reports: Hx Gastroesophageal Reflux Disease Past Surgical History: Reports: Hx Abdominal Surgery, Hx Cholecystectomy, Hx Hysterectomy <LOBO BLOUNT - Last Filed: 04/14/18 00:04> Review of Systems - Review of Systems -: Yes ROS unobtainable due to patient's medical condition <LOBO BLOUNT - Last Filed: 04/14/18 00:04> Physical Exam - Vital signs Interpretation: Hypotensive, Tachycardic, Hypoxic, Tachypneic, Febrile - General General appearance: Lethargic In distress: Moderate - Respiratory Respiratory status: Respiratory distress Breath sounds: Decreased air movement - at bases, Wheezing - Cardiovascular Rhythm: Regular, Tachycardia - Abdominal Tenderness: Nontender - Back Back: Nontender - Extremities General upper extremity: Tender - R hip Shoulder: Nontender Arm: Nontender Elbow: Nontender Forearm: Nontender Wrist: Nontender Hand: Nontender Hip: Tender Thigh: Nontender Knee: Nontender Calf: Nontender Ankle: Normal Foot: Normal - pulses intact b/l - Neurological Cognition: Confused Lawley Coma Scale Eye Opening: To Pain Lawley Coma Scale Verbal: Confused Lawley Coma Scale Motor: Localizes to Pain [place]ley Coma Scale Total: 11 - Skin Skin Temperature: Hot <TASHA DAO - Last Filed: 04/14/18 01:22> - Vital signs Vitals: Temp Pulse Resp BP Pulse Ox 104 F H 126 H 33 H 128/50 H 95 04/13/18 20:03 04/13/18 20:03 04/13/18 20:03 04/13/18 20:03 04/13/18 20:03 Course - Laboratory Result Diagrams: 04/13/18 20:05 04/13/18 20:05 <LOBO BLOUNT - Last Filed: 04/14/18 00:04> - Laboratory Result Diagrams: 04/13/18 20:05 04/13/18 20:05 <TASHA DAO - Last Filed: 04/14/18 01:22> - Re-evaluation Re-evalutation: 04/13 Patient is a 77-year-old female who comes in with altered mental status, fever, tachycardia, and hypotension. Patient's oxygen saturation was low when first evaluated by EMS. Patient was placed on BiPAP here and had been given Tylenol prior to arrival. Her vital signs have normalized and she is in no further respiratory distress on BiPAP. Her mentation has improved. Likely source is pulmonary. Patient had scan of head, chest, abdomen and pelvis to further evaluate for altered mental status or any further trauma. No acute findings found. Patient has old bilateral chronic appearing humerus fractures. No evidence for hip fracture. Still likely source is pulmonary. Patient has been discussed with the hospitalist service. Discussed with family and patient is a full code. She will be admitted for the ICU for respiratory distress and sepsis. Urine and blood cultures have been sent. Antibiotics have been initiated. (TASHA DAO) - Vital Signs Vital signs: Temp Pulse Resp BP Pulse Ox 104 F H 118 H 16 112/51 L 98 04/13/18 20:03 04/13/18 20:07 04/14/18 00:40 04/13/18 23:43 04/14/18 00:40 - Laboratory Laboratory results interpreted by me: 04/13/18 04/13/18 04/13/18 20:05 20:05 20:05 WBC 13.4 H Hgb 11.6 L Hct 34.4 L Seg Neutrophils % 88.1 H Lymphocytes % 6.0 L Absolute Neutrophils 11.8 H PT 16.2 H VBG pH VBG pCO2 Potassium 3.3 L BUN 24 H Glucose 304 H Lactic Acid Direct Bilirubin 0.5 H Albumin 3.3 L Urine Protein Urine Glucose (UA) Urine Ketones Urine Blood Urine Urobilinogen Ur Leukocyte Esterase 04/13/18 04/13/18 04/13/18 20:05 20:05 20:28 WBC Hgb Hct Seg Neutrophils % Lymphocytes % Absolute Neutrophils PT VBG pH 7.50 H VBG pCO2 32.7 L Potassium BUN Glucose Lactic Acid 2.4 H Direct Bilirubin Albumin Urine Protein 100 H Urine Glucose (UA) >=500 H Urine Ketones 20 H Urine Blood SMALL H Urine Urobilinogen 4.0 H Ur Leukocyte Esterase TRACE H Critical Care Note - Critical Care Note Total time excluding time spent on procedures (mins): 45 - Evaluation and management of sepsis, multiple re-evaluations, coordination of admission, counseling patient and family, multiple re-evaluations <TASHA DAO - Last Filed: 04/14/18 01:22> Discharge <LOBO BLOUNT - Last Filed: 04/14/18 00:04> - [facility] Admitted: ICU <TASHA DAO - Last Filed: 04/14/18 01:22> - Discharge Clinical Impression: Respiratory distress Sepsis Qualifiers: Sepsis type: sepsis due to unspecified organism Qualified Code(s): A41.9 - Sepsis, unspecified organism Pneumonia Qualifiers: Aspiration pneumonia type: unspecified Laterality: unspecified laterality Lung location: unspecified part of lung COPD (chronic obstructive pulmonary disease) Qualifiers: COPD type: COPD with acute exacerbation Qualified Code(s): J44.1 - Chronic obstructive pulmonary disease with (acute) exacerbation Condition: Fair Disposition: ADMITTED INPATIENT Scribe Attestation: 04/14/18 01:22 I personally performed the services described in the documentation, reviewed and edited the documentation which was dictated to the scribe in my presence, and it accurately records my words and actions. (TASHA DAO) Scribe Documentation - Scribe Written by Scribe:: Serge Auguste, 04/14/2018 0007 acting as scribe for :: Ching <LOBO BLOUNT - Last Filed: 04/14/18 00:04>
[2018-04-13 20:28] LABS: ABSOLUTE LYMPHOCYTES (AUTO) 0.8 10^3/uL (0.5-4.7); ABSOLUTE MONOCYTES (AUTO) 0.8 10^3/uL (0.1-1.4); ABSOLUTE NEUT (AUTO) 11.8 10^3/uL (1.7-8.2); BASOPHILS % (AUTO) 0.2 % (0-2); HEMATOCRIT 34.4 % (36.0-47.0); HEMOGLOBIN 11.6 g/dL (12.0-15.5); MEAN CORPUSCULAR HEMOGLOBIN 29.9 pg (27.0-33.4); MEAN CORPUSCULAR HGB CONC 33.7 g/dL (32.0-36.0); MEAN CORPUSCULAR VOLUME 89 fl (80-97); MONOCYTES % (AUTO) 5.7 % (3-13); PLATELET COUNT 233 10^3/uL (150-450); RED BLOOD COUNT 3.89 10^6/uL (3.72-5.28); RED CELL DISTRIBUTION WIDTH 13.7 % (11.5-14.0); SEGMENTED NEUTROPHILS % (AUTO) 88.1 % (42-78); TOTAL CELLS COUNTED % (AUTO) 100 %; WHITE BLOOD COUNT 13.4 10^3/uL (4.0-10.5)
[2018-04-13 20:33] LABS: VENOUS BLOOD PCO2 32.7 mmHg (35-63); VENOUS BLOOD PH 7.5 (7.30-7.42)
[2018-04-13 20:34] LABS: INTERNATIONAL RATION (INR) 1.24; PROTHROMBIN TIME 16.2 SEC (11.4-15.4)
[2018-04-13] MEDS ORDERED: CEFTRIAXONE 1 GM/D5W RTU 1 GM/50 ML RTUPB IV ONE ×2 (20:42→20:48)
[2018-04-13 20:45] LABS: ALANINE AMINOTRANSFERASE 28 U/L (9-52); ALBUMIN 3.3 g/dL (3.5-5.0); ALKALINE PHOSPHATASE 89 U/L (38-126); ANION GAP 16 (5-19); ASPARTATE AMINO TRANSFERASE 22 U/L (14-36); BILIRUBIN,DIRECT 0.5 mg/dL (0.0-0.4); BILIRUBIN,TOTAL 0.9 mg/dL (0.2-1.3); BLOOD UREA NITROGEN 24 mg/dL (7-20); CALCIUM 9.3 mg/dL (8.4-10.2); CARBON DIOXIDE 24 mmol/L (22-30); CHLORIDE 99 mmol/L (98-107); GLUCOSE 304 mg/dL (75-110); POTASSIUM 3.3 mmol/L (3.6-5.0); SODIUM 138.6 mmol/L (137-145); TOTAL PROTEIN 6.4 g/dL (6.3-8.2)
--- NOTE | 2018-04-13 20:45 | RADIOLOGY REPORT (SQ) ---
EXAM DESCRIPTION: CHEST SINGLE VIEW COMPLETED DATE/TIME: 04/13/2018 8:16 pm REASON FOR STUDY: fever, ams COMPARISON: 11/21/2017 EXAM PARAMETERS: NUMBER OF VIEWS: One view. TECHNIQUE: Single frontal radiographic view of the chest acquired. RADIATION DOSE: NA LIMITATIONS: None. FINDINGS: LUNGS AND PLEURA: No acute opacities, masses or pneumothorax. No pleural effusion. MEDIASTINUM AND HILAR STRUCTURES: No masses. Contour normal. HEART AND VASCULAR STRUCTURES: Heart normal in size. Normal vasculature. BONES: No acute findings. HARDWARE: None in the chest. OTHER: No other significant finding. IMPRESSION: NO ACUTE RADIOGRAPHIC FINDING IN THE CHEST. TECHNICAL DOCUMENTATION: JOB ID: [id number] [place]-72 2010 [employer]- All Rights Reserved Reading location - IP/workstation name: [email or web address]
[2018-04-13 20:59] LABS: APPEARANCE,URINE CLEAR; BILIRUBIN,URINE NEGATIVE (NEGATIVE); COLOR,URINE YELLOW; GLUCOSE, URINE >=500 mg/dL (NEGATIVE); KETONES,URINE 20 mg/dL (NEGATIVE); LEUKOCYTE ESTERASE,URINE TRACE (NEGATIVE); NITRITE,URINE NEGATIVE (NEGATIVE); PROTEIN,URINE 100 mg/dL (NEGATIVE); URINE SPECIFIC GRAVITY 1.015
[2018-04-13] MEDS ORDERED: IPRATROPIUM/ALBUTEROL 0.5-2.5 MG/3 ML AMPUL NEB ONE (21:13)
[2018-04-13] MEDS ORDERED: VANCOMYCIN HCL INJ 1000 MG VIAL IV ONE (21:53)
[2018-04-13] MEDS ORDERED: LEVOFLOXACIN 750 MG/D5W RTU 750 MG/150 ML RTUPB IV ONE (21:53)
[2018-04-13] MEDS ORDERED: ACETAMINOPHEN 650 MG SUPP.RECT PR PRN (23:20)
[2018-04-13] MEDS ORDERED: DEXTROSE 40% GEL 15 GM TUBE PO PRN ×4 (23:20→23:29)
[2018-04-13] MEDS ORDERED: DEXTROSE 50%-WATER 25 GM/50 ML DISP.SYRIN IV PRN ×4 (23:20→23:29)
[2018-04-13] MEDS ORDERED: ONDANSETRON HCL INJ/PF 4 MG/2 ML SDV IV PRN (23:20)
[2018-04-13] MEDS ORDERED: GLUCAGON,HUMAN RECOMB 1 MG INJ SUBCUT PRN (23:20)
[2018-04-13] MEDS ORDERED: GLUCAGON,HUMAN RECOMB 1 MG INJ IM PRN (23:29)
[2018-04-13] MEDS ORDERED: INSULIN LISPRO 100 UNIT/ML 3 ML VIAL SUBCUT PRN (23:29)
[2018-04-13] MEDS ORDERED: VANCOMYCIN HCL 0 MG in DEXTROSE 5%-WATER 250 ML IV NR (23:30)
[2018-04-13] MEDS: NORMAL SALINE 1000 ML 1,000 ML IV PRN (23:59)
[2018-04-14] MEDS: IPRATROPIUM/ALBUTEROL 0.5-2.5 MG/3 ML AMPUL NEB SCH ×5 (00:02→20:50)
[2018-04-14] MEDS ORDERED: METHYLPREDNISOLONE INJ 125 MG/2 ML SDV IV ONE (00:06)
--- NOTE | 2018-04-14 00:23 | PDOC H&P ---
History of Present Illness Admission Date/PCP: 04/13/18 22:55 History of Present Illness: TAMIE HAJI is a 77 year old female patient with multiple comorbidities including coronary artery disease, COPD, HTN, HLD, DM and dementia , brought in by EMS for altered mental status and fever. Due to patient's cognitive impairment history is obtained from ER attending notes and to review of chart. Patient was seen and discharged from this facility earlier today for evaluation of right hip secondary to a fall. Patient was saturating 86% on room air with a fever of 104 according to EMS. Further detailed history and review of systems unobtainable. Past Medical History Cardiac Medical History: Reports: Myocardial Infarction, Hyperlipidema, Hypertension Pulmonary Medical History: Reports: Chronic Obstructive Pulmonary Disease (COPD) Endocrine Medical History: Reports: Diabetes Mellitus Type 2 GI Medical History: Reports: Gastroesophageal Reflux Disease Past Surgical History Past Surgical History: Reports: Cholecystectomy, Hysterectomy Social History Smoking Status: Unknown if Ever Smoked Frequency of Alcohol Use: None Hx Recreational Drug Use: No Hx Prescription Drug Abuse: No - Advance Directive Resuscitation Status: Full Code Family History Family History: Reviewed & Not Pertinent Parental Family History Reviewed: Yes Children Family History Reviewed: Yes Sibling(s) Family History Reviewed.: Yes Medication/Allergy Home Medications: Albuterol Sulfate [Proair Hfa] 8.5 gm IH TID 11/13/17 Albuterol Sulfate [Ventolin Hfa] 1 puff IH DAILY 11/13/17 Amlodipine Besylate [Amlodipine Besylate] 1 tab PO DAILY 11/13/17 Aspirin [Ecotrin] 81 mg PO DAILY 11/13/17 Calcium Carbonate/Vitamin D3 [Calcium 500-Vit D3 200 Tablet] 1 each PO DAILY Citalopram Hydrobromide [Citalopram HBr] 1 tab PO DAILY 11/13/17 Ferrous Sulfate 325 mg PO TID 11/13/17 Gabapentin 300 mg PO TID 11/13/17 Insulin Glargine,Hum.rec.anlog [Eric Solostar] 50 units SQ DAILY 11/13/17 Oxybutynin Chloride 5 mg PO BID 11/13/17 Pantoprazole Sodium 40 mg PO DAILY 11/13/17 Simvastatin 40 mg PO DAILY 11/13/17 Tiotropium [place] [Spiriva] 1 puff IN BID 11/13/17 Cephalexin Monohydrate [Keflex 500 mg Capsule] 500 mg PO Q8H 10 Days capsule Diazepam [Valium 2 mg Tablet] 2 mg PO BID #14 tablet 11/21/17 Prednisone 20 mg PO TID 5 Days tablet 11/21/17 Allergies/Adverse Reactions: No Known Allergies Allergy (Verified 11/13/17 15:41) Review of Systems ROS unobtainable: Due to mental status Physical Exam Vital Signs: Temp Pulse Resp BP Pulse Ox 104 F H 118 H 20 112/51 L 98 04/13/18 20:03 04/13/18 20:07 04/13/18 23:40 04/13/18 23:43 04/13/18 23:40 General appearance: PRESENT: mild distress Respiratory exam: PRESENT: crackles, decreased breath sounds, rhonchi Cardiovascular exam: PRESENT: tachycardia GI/Abdominal exam: PRESENT: normal bowel sounds, soft. ABSENT: distended, guarding, mass, organolmegaly, rebound, tenderness Results Impressions: Chest X-Ray 04/13/18 20:08 IMPRESSION: NO ACUTE RADIOGRAPHIC FINDING IN THE CHEST. Assessment & Plan - Diagnosis (1) Acute respiratory failure Qualifiers: Respiratory failure complication: hypoxia Qualified Code(s): J96.01 - Acute respiratory failure with hypoxia Is this a current diagnosis for this admission?: Yes Plan: Patient has been started on BiPAP (2) Sepsis Qualifiers: Sepsis type: sepsis due to unspecified organism Qualified Code(s): A41.9 - Sepsis, unspecified organism Is this a current diagnosis for this admission?: Yes Plan: Patient has mild leukocytosis, high-grade fever, hypotension and tachycardia. She has been started empirically on vancomycin and cefepime. (3) Pneumonia Qualifiers: Lung location: unspecified part of lung Is this a current diagnosis for this admission?: Yes Plan: #2 (5) Diabetes mellitus Qualifiers: Diabetes mellitus type: type 2 Is this a current diagnosis for this admission?: Yes Plan: Since patient is n.p.o. she is not started on Lantus which she has been taking at home. She is on sliding scale. - Time Time Spent: 30 to 50 Minutes - Inpatient Certification Medical Necessity: Need Close Monitoring Due to Risk of Patient Decompensation, Need For IV Fluids, Need For Continuous Telemetry Monitoring, Need for IV Antibiotics
--- NOTE | 2018-04-14 01:04 | RADIOLOGY REPORT (SQ) ---
EXAM DESCRIPTION: CT HEAD WITHOUT; CT ABD/PELVIS NO ORAL OR IV; CT CHEST WITHOUT COMPLETED DATE/TIME: 04/13/2018 10:37 pm REASON FOR STUDY: AMS; fall, pain; cough, fever, ams COMPARISON: See below TECHNIQUE: Trauma CT scan performed of the brain, chest, abdomen and pelvis without intravenous cont rast. Multi window review. Reconstructed coronal and sagittal MPR images reviewed. All images stor ed on PACS. All CT scanners at this facility use dose modulation, iterative reconstruction, and/or weight based d osing when appropriate to reduce radiation dose to as low as reasonably achievable (ALARA). [facility]: Dose Right [facility]: CareDose [facility]: Dose Right [facility]: Teradose 4D [facility]: [employer] RADIATION DOSE: CT Rad equipment meets quality standard of care and radiation dose reduction techniq ues were employed. CTDIvol: 53.2 mGy. DLP: 1070 mGy-cm.; CT Rad equipment meets quality standard of c are and radiation dose reduction techniques were employed. CTDIvol: 15.4 mGy. DLP: 1047 mGy-cm. mGy. LIMITATIONS: No technical limitations. FINDINGS: Brain 08/07/2010 comparison. Chronic changes of atrophy and small vessel disease. No hemorrhage or mass or shift. No fracture. Trace fluid in the left maxillary sinus. Chest Mild dependent changes in the lungs. Mild areas of subsegmental atelectasis and mucous plugging. Ca rdiomegaly. Moderate coronary calcification. No aortic aneurysm or mediastinal hematoma. No pneumo thorax. No acute fracture. Bilateral proximal humerus chronic appearing fractures. Abdomen and pelvis No ascites or abnormal gas. Liver, spleen, pancreas, kidneys unremarkable. Normal caliber aorta. F oley catheter in the bladder. No fracture. IMPRESSION: 1. No acute intracranial abnormality. 2. No acute thoracic injury evident. Chronic pr oximal bilateral humerus fractures. 3. No acute abdominopelvic abnormality. TECHNICAL DOCUMENTATION: JOB ID: [id number] Quality ID # [id number]: Final reports with documentation of one or more dose reduction techniques (e.g., Au tomated exposure control, adjustment of the mA and/or kV according to patient size, use of iterative reconstruction technique) 2010 [employer]- All Rights Reserved Reading location - IP/workstation name: [email or web address]
--- NOTE | 2018-04-14 01:09 | RADIOLOGY REPORT (SQ) ---
EXAM: CT ABDOMEN PELVIS WITHOUT IV CONTRAST CLINICAL INDICATION: 77-year-old female status post fall with pain. COMPARISON: None. EXAMINATION: CT of the chest, abdomen and pelvis was performed without intravenous or oral contrast. Multiplanar reformatted images were provided. This exam was performed according to our departmental dose optimization program which includes use of automated exposure control, adjustment of the mA and/or kV according to patient size and/or use of iterative reconstruction technique. FINDINGS: Evaluation of solid organ pathology is limited secondary to lack of intravenous contrast. Examination findings are further limited by breathing motion artifact and streak artifact secondary to adjacent patient arm positioning. Within these limitations, the following observations are made. Chest: Evaluation through the lungs reveal no focal opacity, pleural effusion or pneumothorax. Nonspecific distal bronchial wall thickening bronchiectasis. Heart size is top normal. No pericardial effusion. Coronary artery atherosclerotic calcification. Abdomen and pelvis: The liver, pancreas, spleen, bilateral kidneys and bilateral adrenal glands are within normal limits. The gallbladder is not visualized. Focal area of hypoattenuation present at the level of the hilar region of the RIGHT kidney raising the question of simple renal cyst with Hounsfield units measuring less than 20 and measuring approximately 19 mm in maximal dimension. The vessels reveal atherosclerotic calcification otherwise normal in caliber. No abdominopelvic lymph nodes are noted to be pathologically enlarged by CT measurement criteria. The bowel is within normal limits without abnormal bowel wall thickness or bowel dilation. Large volume of fecal content present throughout the distal large bowel suggesting fecal stasis or constipation. The proximal large bowel is decompressed. Wall thickening of the proximal large bowel, cecum, ascending colon and proximal transverse colon may be secondary to incomplete distention. No free air. No free abdominopelvic fluid collections. The appendix is not identified. [place] balloon catheter placement within the decompressed bladder. The osseous structures reveal degenerative change particularly of the lower lumbar spine facets. Small fat-containing umbilical hernia. IMPRESSION: 1. No specific acute intrathoracic or intra-abdominal findings are noted to suggest etiology of the patient's symptoms. 2. Large volume of fecal content present throughout the large bowel suggesting fecal stasis or constipation. 3. Wall thickening raising the concern for infectious or inflammatory colitis versus incomplete distention of the proximal ascending colon. 4. Nonspecific bilateral lower lobe bronchial wall thickening and bronchiectasis. The lungs are otherwise clear. 5. Suspected simple RIGHT renal cyst measuring 19 mm.
[2018-04-14 04:15] LABS: ABSOLUTE LYMPHOCYTES (AUTO) 0.9 10^3/uL (0.5-4.7); ABSOLUTE MONOCYTES (AUTO) 1.4 10^3/uL (0.1-1.4); ABSOLUTE NEUT (AUTO) 11.4 10^3/uL (1.7-8.2); BASOPHILS % (AUTO) 0.2 % (0-2); HEMOGLOBIN 10.8 g/dL (12.0-15.5); LYMPHOCYTES % (AUTO) 6.2 % (13-45); MEAN CORPUSCULAR HEMOGLOBIN 29.8 pg (27.0-33.4); MEAN CORPUSCULAR HGB CONC 33.6 g/dL (32.0-36.0); MEAN CORPUSCULAR VOLUME 89 fl (80-97); MONOCYTES % (AUTO) 10.4 % (3-13); PLATELET COUNT 187 10^3/uL (150-450); RED BLOOD COUNT 3.61 10^6/uL (3.72-5.28); RED CELL DISTRIBUTION WIDTH 13.9 % (11.5-14.0); SEGMENTED NEUTROPHILS % (AUTO) 83.2 % (42-78); TOTAL CELLS COUNTED % (AUTO) 100 %; WHITE BLOOD COUNT 13.7 10^3/uL (4.0-10.5)
[2018-04-14 04:21] LABS: ALANINE AMINOTRANSFERASE 22 U/L (9-52); ALBUMIN 2.8 g/dL (3.5-5.0); ALKALINE PHOSPHATASE 71 U/L (38-126); ANION GAP 15 (5-19); ASPARTATE AMINO TRANSFERASE 15 U/L (14-36); BILIRUBIN,DIRECT 0.3 mg/dL (0.0-0.4); BILIRUBIN,TOTAL 0.6 mg/dL (0.2-1.3); BLOOD UREA NITROGEN 24 mg/dL (7-20); CALCIUM 8.4 mg/dL (8.4-10.2); CARBON DIOXIDE 22 mmol/L (22-30); CHLORIDE 102 mmol/L (98-107); GLUCOSE 379 mg/dL (75-110); POTASSIUM 3.4 mmol/L (3.6-5.0); SODIUM 138.7 mmol/L (137-145); TOTAL PROTEIN 5.7 g/dL (6.3-8.2)
[2018-04-14 06:16] LABS: ARTERIAL BLOOD BASE EXCESS -1.1 mmol/L; ARTERIAL BLOOD HCO3 23.1 mmol/L (20-26); ARTERIAL BLOOD PCO2 36.7 mmHg (35-45); ARTERIAL BLOOD PH 7.42 (7.35-7.45); ARTERIAL BLOOD PO2 89.9 mmHg (80-100); ARTERIAL BLOOD TOTAL CO2 24.2 mmol/L (21-25)
[2018-04-14 06:19] LABS: ARTERIAL BLOOD FIO2 30%
--- NOTE | 2018-04-14 07:40 | EKG REPORT ---
SEVERITY:- ABNORMAL ECG - SINUS TACHYCARDIA VENTRICULAR PREMATURE COMPLEX DIFFUSE NONSPECIFIC ST-T CHANGES : Confirmed by: Lanre Aguirre MD 14-Apr-2018 07:39:09
[2018-04-14] MEDS: NORMAL SALINE 1000 ML 1,000 ML IV PRN ×2 (08:55→20:18)
[2018-04-14] MEDS: CEFEPIME 2 GM/D5W RTU 2 GM/50 ML RTUPB IV SCH ×2 (09:20→21:48)
[2018-04-14] MEDS: PANTOPRAZOLE SODIUM 40 MG VIAL IV SCH ×2 (09:20→21:49)
[2018-04-14] MEDS: ENOXAPARIN SODIUM INJ 40 MG/0.4 ML DISP.SYRIN SUBCUT SCH (09:20)
[2018-04-14 09:57] LABS: PHOSPHORUS 3.4 mg/dL (2.5-4.5)
[2018-04-14] MEDS: VANCOMYCIN HCL 500 MG in DEXTROSE 5%-WATER 100 ML IV SCH ×2 (10:22→21:48)
[2018-04-14] MEDS ORDERED: DEXTROSE 50%-WATER 25 GM/50 ML DISP.SYRIN IV PRN ×2 (11:29)
[2018-04-14] MEDS ORDERED: GLUCAGON,HUMAN RECOMB 1 MG INJ IM PRN (11:29)
[2018-04-14] MEDS ORDERED: DEXTROSE 40% GEL 15 GM TUBE PO PRN ×2 (11:29)
[2018-04-14] MEDS: MAGNESIUM SULFATE/D5W 1 GM/100 ML RTUPB IV SCH ×4 (11:31→14:50)
--- NOTE | 2018-04-14 11:33 | PDOC PROGRESS REPORT ---
Subjective Progress Note for:: 04/14/18 Subjective:: 77 yr olf female with past history of Chronic b/l proximal humerus fractures Type 2 diabetes CAD Hypertension Hyperlipidemia COPD on home oxygen GERD She presented to the ER after a fall and R hip pain and bruising Xray did not show any fracture, she was sent home. She presented back to the hospital later with confusion, fever, tachycardia, hypotension and respiratory distress and was suspected to have sepsis possibly due to pneumonia. Was started on BiPAP and broad spectrum antibiotics. Remains on BiPAP this am. Denies pain or discomfort. Is awake and alert Will attempt to wean off BiPAP as tolerated Reason For Visit: SEPSIS,PNEUMONIA Physical Exam Vital Signs: Temp Pulse Resp BP Pulse Ox 99.7 F 90 21 H 108/47 L 99 04/14/18 10:00 04/14/18 10:00 04/14/18 10:00 04/14/18 10:00 04/14/18 10:00 Intake & Output 04/13/18 04/14/18 04/15/18 06:59 06:59 06:59 Output Total 775 370 Balance -775 -370 Weight 56.7 kg General appearance: PRESENT: no acute distress Head exam: PRESENT: normocephalic Eye exam: PRESENT: PERRLA Ear exam: PRESENT: normal external ear exam Mouth exam: PRESENT: other - On BiPAP Neck exam: ABSENT: tracheal deviation Respiratory exam: PRESENT: accessory muscle use, rhonchi, symmetrical Cardiovascular exam: PRESENT: RRR GI/Abdominal exam: PRESENT: normal bowel sounds, soft. ABSENT: tenderness Rectal exam: PRESENT: deferred Extremities exam: ABSENT: pedal edema Neurological exam: PRESENT: alert, awake Psychiatric exam: PRESENT: appropriate affect Skin exam: PRESENT: other - R lateral thigh bruising. ABSENT: petechiae Results Laboratory Results: 04/14/18 03:42 04/14/18 03:42 04/13/18 04/14/18 04/14/18 23:56 03:42 03:42 WBC 13.7 H RBC 3.61 L Hgb 10.8 L Hct 32.0 L MCV 89 MCH 29.8 MCHC 33.6 RDW 13.9 Plt Count 187 Seg Neutrophils % 83.2 H Lymphocytes % 6.2 L Monocytes % 10.4 Eosinophils % 0.0 Basophils % 0.2 Absolute Neutrophils 11.4 H Absolute Lymphocytes 0.9 Absolute Monocytes 1.4 Absolute Eosinophils 0.0 Absolute Basophils 0.0 Carbonic Acid HCO3/H2CO3 Ratio ABG pH ABG pCO2 ABG pO2 ABG HCO3 ABG O2 Saturation ABG Base Excess FiO2 Sodium 138.7 Potassium 3.4 L Chloride 102 Carbon Dioxide 22 Anion Gap 15 BUN 24 H Creatinine 0.77 Est GFR ( Amer) > 60 Est GFR (Non-Af Amer) > 60 Glucose 379 H Lactic Acid 1.6 Calcium 8.4 Phosphorus Magnesium Total Bilirubin 0.6 AST 15 ALT 22 Alkaline Phosphatase 71 Total Protein 5.7 L Albumin 2.8 L 04/14/18 04/14/18 03:42 05:50 WBC RBC Hgb Hct MCV MCH MCHC RDW Plt Count Seg Neutrophils % Lymphocytes % Monocytes % Eosinophils % Basophils % Absolute Neutrophils Absolute Lymphocytes Absolute Monocytes Absolute Eosinophils Absolute Basophils Carbonic Acid 1.10 HCO3/H2CO3 Ratio 21:1 ABG pH 7.42 ABG pCO2 36.7 ABG pO2 89.9 ABG HCO3 23.1 ABG O2 Saturation 97.0 ABG Base Excess -1.1 FiO2 30% Sodium Potassium Chloride Carbon Dioxide Anion Gap BUN Creatinine Est GFR ( Amer) Est GFR (Non-Af Amer) Glucose Lactic Acid Calcium Phosphorus 3.4 Magnesium 1.1 L* Total Bilirubin AST ALT Alkaline Phosphatase Total Protein Albumin Impressions: Chest X-Ray 04/13/18 20:08 IMPRESSION: NO ACUTE RADIOGRAPHIC FINDING IN THE CHEST. Head CT 04/13/18 21:14 IMPRESSION: 1. No acute intracranial abnormality. 2. No acute thoracic injury evident. Chronic proximal bilateral humerus fractures. 3. No acute abdominopelvic abnormality. Abdomen/Pelvis CT 04/13/18 21:48 IMPRESSION: 1. No specific acute intrathoracic or intra-abdominal findings are noted to suggest etiology of the patient's symptoms. 2. Large volume of fecal content present throughout the large bowel suggesting fecal stasis or constipation. 3. Wall thickening raising the concern for infectious or inflammatory colitis versus incomplete distention of the proximal ascending colon. 4. Nonspecific bilateral lower lobe bronchial wall thickening and bronchiectasis. The lungs are otherwise clear. 5. Suspected simple RIGHT renal cyst measuring [address] 04/13/18 22:24 IMPRESSION: 1. No specific acute intrathoracic or intra-abdominal findings are noted to suggest etiology of the patient's symptoms. 2. Large volume of fecal content present throughout the large bowel suggesting fecal stasis or constipation. 3. Wall thickening raising the concern for infectious or inflammatory colitis versus incomplete distention of the proximal ascending colon. 4. Nonspecific bilateral lower lobe bronchial wall thickening and bronchiectasis. The lungs are otherwise clear. 5. Suspected simple RIGHT renal cyst measuring 19 mm. Assessment & Plan - Diagnosis (1) Acute respiratory failure Qualifiers: Respiratory failure complication: hypoxia Qualified Code(s): J96.01 - Acute respiratory failure with hypoxia Is this a current diagnosis for this admission?: Yes Plan: Due to COPD exacerbation and suspected pneumonia (2) COPD (chronic obstructive pulmonary disease) Qualifiers: COPD type: COPD with acute exacerbation Qualified Code(s): J44.1 - Chronic obstructive pulmonary disease with (acute) exacerbation Is this a current diagnosis for this admission?: Yes Plan: Nebs, supplemental oxygen, steroids (3) Diabetes mellitus Qualifiers: Diabetes mellitus type: type 2 Is this a current diagnosis for this admission?: Yes Plan: Insulin sliding scale (4) Pneumonia Qualifiers: Aspiration pneumonia type: unspecified Laterality: unspecified laterality Lung location: unspecified part of lung Is this a current diagnosis for this admission?: Yes Plan: Follow up on cultures. Continue antibiotics (5) Sepsis Qualifiers: Sepsis type: sepsis due to unspecified organism Qualified Code(s): A41.9 - Sepsis, unspecified organism Is this a current diagnosis for this admission?: Yes Plan: Possibly due to pneumonia Follow up on cultures. Continue antibiotics (6) Dementia Qualifiers: Dementia type: Alzheimer's disease Alzheimer's disease onset: unspecified onset Dementia behavioral disturbance: without behavioral disturbance Qualified Code(s): G30.9 - Alzheimer's disease, unspecified; F02.80 - Dementia in other diseases classified elsewhere without behavioral disturbance; F02.80 - Dementia in other diseases classified elsewhere without behavioral disturbance; F02.80 - Dementia in other diseases classified elsewhere without behavioral disturbance Is this a current diagnosis for this admission?: Yes (7) DVT prophylaxis Is this a current diagnosis for this admission?: Yes Plan: Lovenox s/c (8) Metabolic encephalopathy Is this a current diagnosis for this admission?: Yes Plan: Due to sepsis- improving (9) Hypomagnesemia Is this a current diagnosis for this admission?: Yes Plan: Replete (10) Hypokalemia Is this a current diagnosis for this admission?: Yes Plan: Replete - Time Time Spent with patient: 35 or more minutes
[2018-04-14] MEDS ORDERED: PREDNISONE 20 MG TABLET PO SCH (12:00)
[2018-04-14] MEDS ORDERED: IPRATROPIUM/ALBUTEROL 0.5-2.5 MG/3 ML AMPUL NEB ONE ×2 (12:30)
[2018-04-14] MEDS ORDERED: IPRATROPIUM/ALBUTEROL 0.5-2.5 MG/3 ML AMPUL NEB SCH ×2 (14:00→16:00)
[2018-04-14] MEDS: INSULIN LISPRO 100 UNIT/ML 3 ML VIAL SUBCUT PRN (17:46)
[2018-04-14 19:05] LABS: ARTERIAL BLOOD BASE EXCESS -0.5 mmol/L; ARTERIAL BLOOD FIO2 2L; ARTERIAL BLOOD H2CO3 1.06 mmol/L (1.05-1.35); ARTERIAL BLOOD HCO3 23.3 mmol/L (20-26); ARTERIAL BLOOD O2 SATURATION 96.6 % (94-98); ARTERIAL BLOOD PCO2 35.3 mmHg (35-45); ARTERIAL BLOOD PH 7.44 (7.35-7.45); ARTERIAL BLOOD PO2 83.4 mmHg (80-100); ARTERIAL BLOOD TOTAL CO2 24.4 mmol/L (21-25)
[2018-04-15] MEDS: INSULIN LISPRO 100 UNIT/ML 3 ML VIAL SUBCUT PRN ×4 (00:27→18:50)
[2018-04-15 04:13] LABS: ABSOLUTE MONOCYTES (AUTO) 1.1 10^3/uL (0.1-1.4); ABSOLUTE NEUT (AUTO) 14.6 10^3/uL (1.7-8.2); BASOPHILS % (AUTO) 0.2 % (0-2); HEMATOCRIT 30.3 % (36.0-47.0); HEMOGLOBIN 10.5 g/dL (12.0-15.5); LYMPHOCYTES % (AUTO) 5.7 % (13-45); MEAN CORPUSCULAR HEMOGLOBIN 30.2 pg (27.0-33.4); MEAN CORPUSCULAR HGB CONC 34.5 g/dL (32.0-36.0); MEAN CORPUSCULAR VOLUME 88 fl (80-97); MONOCYTES % (AUTO) 6.8 % (3-13); PLATELET COUNT 171 10^3/uL (150-450); RED BLOOD COUNT 3.46 10^6/uL (3.72-5.28); RED CELL DISTRIBUTION WIDTH 14.1 % (11.5-14.0); SEGMENTED NEUTROPHILS % (AUTO) 87.3 % (42-78); TOTAL CELLS COUNTED % (AUTO) 100 %; WHITE BLOOD COUNT 16.7 10^3/uL (4.0-10.5)
[2018-04-15 04:28] LABS: ALANINE AMINOTRANSFERASE 24 U/L (9-52); ALBUMIN 2.9 g/dL (3.5-5.0); ALKALINE PHOSPHATASE 80 U/L (38-126); ANION GAP 9 (5-19); ASPARTATE AMINO TRANSFERASE 18 U/L (14-36); BILIRUBIN,DIRECT 0.3 mg/dL (0.0-0.4); BILIRUBIN,TOTAL 0.6 mg/dL (0.2-1.3); BLOOD UREA NITROGEN 17 mg/dL (7-20); CALCIUM 9.1 mg/dL (8.4-10.2); CARBON DIOXIDE 24 mmol/L (22-30); CHLORIDE 111 mmol/L (98-107); GLUCOSE 196 mg/dL (75-110); PHOSPHORUS 1.8 mg/dL (2.5-4.5); POTASSIUM 3.3 mmol/L (3.6-5.0); SODIUM 143.9 mmol/L (137-145); TOTAL PROTEIN 5.9 g/dL (6.3-8.2)
[2018-04-15] MEDS: NORMAL SALINE 1000 ML 1,000 ML IV PRN ×2 (06:19→16:52)
[2018-04-15] MEDS: IPRATROPIUM/ALBUTEROL 0.5-2.5 MG/3 ML AMPUL NEB SCH ×4 (09:40→20:00)
[2018-04-15] MEDS: CEFEPIME 2 GM/D5W RTU 2 GM/50 ML RTUPB IV SCH ×2 (10:12→21:17)
[2018-04-15] MEDS: VANCOMYCIN HCL 500 MG in DEXTROSE 5%-WATER 100 ML IV SCH ×2 (10:12→21:16)
[2018-04-15] MEDS: ENOXAPARIN SODIUM INJ 40 MG/0.4 ML DISP.SYRIN SUBCUT SCH (10:13)
[2018-04-15] MEDS: PANTOPRAZOLE SODIUM 40 MG VIAL IV SCH ×2 (10:13→21:17)
[2018-04-15] MEDS: IBUPROFEN 400 MG TABLET PO PRN (12:54)
[2018-04-15] MEDS: ACETAMINOPHEN 325 MG TABLET PO PRN (12:55)
--- NOTE | 2018-04-15 17:38 | PDOC PROGRESS REPORT ---
Subjective Progress Note for:: 04/15/18 Subjective:: Awake, pleasant, and appropriate. Apparently he has had several episodes of confusion with hallucination. Continues to have a waxing and waning fever. Reason For Visit: SEPSIS,PNEUMONIA Physical Exam Vital Signs: Temp Pulse Resp BP Pulse Ox 99.7 F 94 20 114/42 L 96 04/15/18 16:58 04/15/18 16:58 04/15/18 16:58 04/15/18 16:58 04/15/18 16:58 Intake & Output 04/14/18 04/15/18 04/16/18 05:59 05:59 05:59 Intake Total 1248 Output Total 75 3205 495 Balance -75 -3205 753 Weight 152 lb 8.958 oz 123 lb 14.397 oz General appearance: PRESENT: no acute distress, cooperative, thin Respiratory exam: PRESENT: clear to auscultation taylor Cardiovascular exam: PRESENT: RRR GI/Abdominal exam: PRESENT: soft Extremities exam: ABSENT: pedal edema Neurological exam: PRESENT: awake, oriented to person, oriented to place Skin exam: PRESENT: dry, warm Results Laboratory Results: 04/15/18 03:57 04/15/18 03:57 04/14/18 04/15/18 04/15/18 18:50 03:57 03:57 WBC 16.7 H RBC 3.46 L Hgb 10.5 L Hct 30.3 L MCV 88 MCH 30.2 MCHC 34.5 RDW 14.1 H Plt Count 171 Seg Neutrophils % 87.3 H Lymphocytes % 5.7 L Monocytes % 6.8 Eosinophils % 0.0 Basophils % 0.2 Absolute Neutrophils 14.6 H Absolute Lymphocytes 1.0 Absolute Monocytes 1.1 Absolute Eosinophils 0.0 Absolute Basophils 0.0 Carbonic Acid 1.06 HCO3/H2CO3 Ratio 21:1 ABG pH 7.44 ABG pCO2 35.3 ABG pO2 83.4 ABG HCO3 23.3 ABG O2 Saturation 96.6 ABG Base Excess -0.5 FiO2 2L Sodium 143.9 Potassium 3.3 L Chloride 111 H Carbon Dioxide 24 Anion Gap 9 BUN 17 Creatinine 0.58 Est GFR ( Amer) > 60 Est GFR (Non-Af Amer) > 60 Glucose 196 H Calcium 9.1 Phosphorus 1.8 L Magnesium 2.0 Total Bilirubin 0.6 AST 18 ALT 24 Alkaline Phosphatase 80 Total Protein 5.9 L Albumin 2.9 L 04/15/18 03:57 NT-Pro-B Natriuret Pep 2750 H Impressions: Chest X-Ray 04/13/18 20:08 IMPRESSION: NO ACUTE RADIOGRAPHIC FINDING IN THE CHEST. Head CT 04/13/18 21:14 IMPRESSION: 1. No acute intracranial abnormality. 2. No acute thoracic injury evident. Chronic proximal bilateral humerus fractures. 3. No acute abdominopelvic abnormality. Abdomen/Pelvis CT 04/13/18 21:48 IMPRESSION: 1. No specific acute intrathoracic or intra-abdominal findings are noted to suggest etiology of the patient's symptoms. 2. Large volume of fecal content present throughout the large bowel suggesting fecal stasis or constipation. 3. Wall thickening raising the concern for infectious or inflammatory colitis versus incomplete distention of the proximal ascending colon. 4. Nonspecific bilateral lower lobe bronchial wall thickening and bronchiectasis. The lungs are otherwise clear. 5. Suspected simple RIGHT renal cyst measuring [address] 04/13/18 22:24 IMPRESSION: 1. No specific acute intrathoracic or intra-abdominal findings are noted to suggest etiology of the patient's symptoms. 2. Large volume of fecal content present throughout the large bowel suggesting fecal stasis or constipation. 3. Wall thickening raising the concern for infectious or inflammatory colitis versus incomplete distention of the proximal ascending colon. 4. Nonspecific bilateral lower lobe bronchial wall thickening and bronchiectasis. The lungs are otherwise clear. 5. Suspected simple RIGHT renal cyst measuring 19 mm. Assessment & Plan - Diagnosis (1) COPD exacerbation Is this a current diagnosis for this admission?: Yes Plan: Improving. Continue steroids, nebulizers, empiric antibiotics. (2) Obstipation Is this a current diagnosis for this admission?: Yes Plan: She has moved her bowels 3 times since admission, continue to monitor closely (3) Acute respiratory failure Qualifiers: Respiratory failure complication: hypoxia Qualified Code(s): J96.01 - Acute respiratory failure with hypoxia Is this a current diagnosis for this admission?: Yes Plan: Continue BiPAP as needed. Wean oxygen as tolerated (4) Metabolic encephalopathy Is this a current diagnosis for this admission?: Yes Plan: The component is certainly related to her acute infection, but she also has a documented history of dementia. Unknown baseline. (5) Sepsis Qualifiers: Sepsis type: sepsis due to unspecified organism Qualified Code(s): A41.9 - Sepsis, unspecified organism Is this a current diagnosis for this admission?: Yes Plan: Continues to run a fever. Continue empiric antibiotics. Cultures have been negative thus far. (6) Essential hypertension Is this a current diagnosis for this admission?: Yes Plan: Resume home medications.
[2018-04-15] MEDS ORDERED: PHOSPHORUS #1 250 MG TABLET PO ONE (18:00)
[2018-04-15] MEDS: CYCLOSPORINE 0.05% OPH EMULSIO 0.4 ML DROPERETTE OU SCH (18:21)
[2018-04-15] MEDS: SIMVASTATIN 40 MG TABLET PO SCH (21:18)
[2018-04-15 22:16] LABS: VANCOMYCIN,TROUGH 7.4 ug/mL (5.0-20.0)
[2018-04-16] MEDS: INSULIN LISPRO 100 UNIT/ML 3 ML VIAL SUBCUT PRN ×3 (00:24→18:34)
[2018-04-16] MEDS: ACETAMINOPHEN 325 MG TABLET PO PRN ×2 (01:13→16:06)
[2018-04-16] MEDS: IBUPROFEN 400 MG TABLET PO PRN ×2 (01:13→16:06)
[2018-04-16 04:13] LABS: HEMATOCRIT 28.9 % (36.0-47.0); HEMOGLOBIN 9.8 g/dL (12.0-15.5); MEAN CORPUSCULAR HEMOGLOBIN 29.8 pg (27.0-33.4); MEAN CORPUSCULAR VOLUME 88 fl (80-97); PLATELET COUNT 171 10^3/uL (150-450); RED CELL DISTRIBUTION WIDTH 13.8 % (11.5-14.0); WHITE BLOOD COUNT 19.9 10^3/uL (4.0-10.5)
[2018-04-16 04:28] LABS: ALBUMIN 2.4 g/dL (3.5-5.0); ANION GAP 8 (5-19); BLOOD UREA NITROGEN 18 mg/dL (7-20); CALCIUM 8.8 mg/dL (8.4-10.2); CARBON DIOXIDE 25 mmol/L (22-30); CHLORIDE 110 mmol/L (98-107); GLUCOSE 217 mg/dL (75-110); PHOSPHORUS 2.1 mg/dL (2.5-4.5); SODIUM 142.5 mmol/L (137-145)
[2018-04-16 04:45] LABS: ABSOLUTE MONOCYTES # (MANUAL) 0.6 10^3/uL (0.1-1.4); ABSOLUTE NEUTROPHILS# (MANUAL) 18.3 10^3/uL (1.7-8.2); BASOPHILS % (MANUAL) 0 % (0-2); EOSINOPHILS % (MANUAL) 0 % (0-6); LYMPHOCYTES % (MANUAL) 5 % (13-45); MONOCYTES % (MANUAL) 3 % (3-13); SEGMENTED NEUTROPHILS % (MAN) 92 % (42-78); TOTAL CELLS COUNTED 100
[2018-04-16 04:47] LABS: OVALOCYTES SLIGHT; PLATELET COMMENT ADEQUATE; POIKILOCYTOSIS SLIGHT; POLYCHROMASIA SLIGHT
[2018-04-16] MEDS ORDERED: POTASSIUM CHLORIDE 10 MEQ TABLET.SA PO ONE ×2 (05:00→10:00)
[2018-04-16] MEDS: LANSOPRAZOLE 30 MG TAB.RAP.DR PO SCH (05:27)
[2018-04-16] MEDS ORDERED: PHOSPHORUS #1 250 MG TABLET PO SCH (08:00)
[2018-04-16] MEDS: VANCOMYCIN HCL 1,000 MG in DEXTROSE 5%-WATER 250 ML IV SCH ×2 (08:28→21:18)
[2018-04-16] MEDS: IPRATROPIUM/ALBUTEROL 0.5-2.5 MG/3 ML AMPUL NEB SCH ×4 (08:46→20:10)
[2018-04-16] MEDS: AMLODIPINE BESYLATE 5 MG TABLET PO SCH (09:24)
[2018-04-16] MEDS: CITALOPRAM HYDROBROMIDE 20 MG TABLET PO SCH (09:24)
[2018-04-16] MEDS: ENOXAPARIN SODIUM INJ 40 MG/0.4 ML DISP.SYRIN SUBCUT SCH (09:25)
[2018-04-16] MEDS: CYCLOSPORINE 0.05% OPH EMULSIO 0.4 ML DROPERETTE OU SCH ×2 (09:25→17:45)
[2018-04-16] MEDS: ASPIRIN 81 MG TABLET, ENT COATED PO SCH (09:40)
[2018-04-16] MEDS ORDERED: INSULIN GLARGINE,HUM.REC.ANLOG 1,000 UNIT/10 ML UNIT SUBCUT SCH (10:00)
[2018-04-16] MEDS: CEFEPIME 2 GM/D5W RTU 2 GM/50 ML RTUPB IV SCH ×2 (11:23→21:21)
[2018-04-16] MEDS ORDERED: BISACODYL 10 MG SUPP.RECT PR ONE (13:30)
[2018-04-16] MEDS ORDERED: POLYETHYLENE GLYCOL 3350 POWDER 17 GM/1 PACKET PO ONE (13:30)
--- NOTE | 2018-04-16 15:04 | PDOC PROGRESS REPORT ---
Subjective Progress Note for:: 04/16/18 Subjective:: Awake and pleasant. No reports of confusion or agitation overnight. Tolerating regular diet. Reason For Visit: SEPSIS,PNEUMONIA Physical Exam Vital Signs: Temp Pulse Resp BP Pulse Ox 99.1 F 104 H 24 H 109/31 L 97 04/16/18 14:00 04/16/18 14:00 04/16/18 14:00 04/16/18 14:00 04/16/18 14:00 Intake & Output 04/15/18 04/16/18 04/17/18 05:59 05:59 05:59 Intake Total 2201 950 Output Total 3205 885 375 Balance -3205 1316 575 Weight 123 lb 14.397 oz General appearance: PRESENT: no acute distress, cooperative Respiratory exam: PRESENT: clear to auscultation taylor Cardiovascular exam: PRESENT: RRR GI/Abdominal exam: PRESENT: soft Musculoskeletal exam: PRESENT: normal inspection Neurological exam: PRESENT: alert Psychiatric exam: PRESENT: appropriate affect Skin exam: PRESENT: warm Results Laboratory Results: 04/16/18 03:45 04/16/18 03:45 04/16/18 04/16/18 04/16/18 03:45 03:45 03:45 WBC 19.9 H RBC 3.30 L Hgb 9.8 L Hct 28.9 L MCV 88 MCH 29.8 MCHC 34.0 RDW 13.8 Plt Count 171 Seg Neutrophils % Not Reportable Lymphocytes % Not Reportable Monocytes % Not Reportable Eosinophils % Not Reportable Basophils % Not Reportable Absolute Neutrophils Not Reportable Absolute Lymphocytes Not Reportable Absolute Monocytes Not Reportable Absolute Eosinophils Not Reportable Absolute Basophils Not Reportable Sodium 142.5 Potassium 3.0 L* Chloride 110 H Carbon Dioxide 25 Anion Gap 8 BUN 18 Creatinine 0.54 Est GFR ( Amer) > 60 Est GFR (Non-Af Amer) > 60 Glucose 217 H Calcium 8.8 Phosphorus 2.1 L Magnesium 1.7 Albumin 2.4 L TSH 0.39 L 04/15/18 04/16/18 03:57 03:45 NT-Pro-B Natriuret Pep 2750 H 2850 H Impressions: Chest X-Ray 04/13/18 20:08 IMPRESSION: NO ACUTE RADIOGRAPHIC FINDING IN THE CHEST. Head CT 04/13/18 21:14 IMPRESSION: 1. No acute intracranial abnormality. 2. No acute thoracic injury evident. Chronic proximal bilateral humerus fractures. 3. No acute abdominopelvic abnormality. Abdomen/Pelvis CT 04/13/18 21:48 IMPRESSION: 1. No specific acute intrathoracic or intra-abdominal findings are noted to suggest etiology of the patient's symptoms. 2. Large volume of fecal content present throughout the large bowel suggesting fecal stasis or constipation. 3. Wall thickening raising the concern for infectious or inflammatory colitis versus incomplete distention of the proximal ascending colon. 4. Nonspecific bilateral lower lobe bronchial wall thickening and bronchiectasis. The lungs are otherwise clear. 5. Suspected simple RIGHT renal cyst measuring [address] 04/13/18 22:24 IMPRESSION: 1. No specific acute intrathoracic or intra-abdominal findings are noted to suggest etiology of the patient's symptoms. 2. Large volume of fecal content present throughout the large bowel suggesting fecal stasis or constipation. 3. Wall thickening raising the concern for infectious or inflammatory colitis versus incomplete distention of the proximal ascending colon. 4. Nonspecific bilateral lower lobe bronchial wall thickening and bronchiectasis. The lungs are otherwise clear. 5. Suspected simple RIGHT renal cyst measuring 19 mm. Assessment & Plan - Diagnosis (1) COPD exacerbation Is this a current diagnosis for this admission?: Yes Plan: Improving. Continue nebulizers, empiric antibiotics. Her white count continues to climb for unclear reasons. She is not on steroids. (2) Acute respiratory failure Qualifiers: Respiratory failure complication: hypoxia Qualified Code(s): J96.01 - Acute respiratory failure with hypoxia Is this a current diagnosis for this admission?: Yes Plan: Continue BiPAP as needed. Wean oxygen as tolerated (3) Sepsis Qualifiers: Sepsis type: sepsis due to unspecified organism Qualified Code(s): A41.9 - Sepsis, unspecified organism Is this a current diagnosis for this admission?: Yes Plan: Last fever 24 hours ago. Continue empiric antibiotics. Cultures have been negative thus far. (4) Essential hypertension Is this a current diagnosis for this admission?: Yes Plan: Continue home medications. (5) Obstipation Is this a current diagnosis for this admission?: Yes Plan: Resolved (6) Metabolic encephalopathy Is this a current diagnosis for this admission?: Yes Plan: Resolved
[2018-04-16] MEDS: SIMVASTATIN 40 MG TABLET PO SCH (21:20)
[2018-04-16] MEDS: BISACODYL 10 MG SUPP.RECT PR SCH (21:21)
[2018-04-17] MEDS: INSULIN LISPRO 100 UNIT/ML 3 ML VIAL SUBCUT PRN ×4 (00:11→22:16)
[2018-04-17 05:49] LABS: HEMATOCRIT 29.4 % (36.0-47.0); MEAN CORPUSCULAR HEMOGLOBIN 29.8 pg (27.0-33.4); MEAN CORPUSCULAR HGB CONC 34.1 g/dL (32.0-36.0); MEAN CORPUSCULAR VOLUME 87 fl (80-97); PLATELET COUNT 226 10^3/uL (150-450); RED BLOOD COUNT 3.36 10^6/uL (3.72-5.28); RED CELL DISTRIBUTION WIDTH 13.7 % (11.5-14.0); WHITE BLOOD COUNT 21.6 10^3/uL (4.0-10.5)
[2018-04-17 06:01] LABS: ALBUMIN 2.5 g/dL (3.5-5.0); ANION GAP 9 (5-19); BLOOD UREA NITROGEN 18 mg/dL (7-20); CALCIUM 9.2 mg/dL (8.4-10.2); CARBON DIOXIDE 25 mmol/L (22-30); CHLORIDE 111 mmol/L (98-107); GLUCOSE 185 mg/dL (75-110); PHOSPHORUS 1.9 mg/dL (2.5-4.5); POTASSIUM 3.6 mmol/L (3.6-5.0); SODIUM 144.5 mmol/L (137-145)
[2018-04-17 06:11] LABS: ABSOLUTE LYMPHOCYTES# (MANUAL) 1.3 10^3/uL (0.5-4.7); ABSOLUTE MONOCYTES # (MANUAL) 1.1 10^3/uL (0.1-1.4); ABSOLUTE NEUTROPHILS# (MANUAL) 19.2 10^3/uL (1.7-8.2); BASOPHILS % (MANUAL) 0 % (0-2); EOSINOPHILS % (MANUAL) 0 % (0-6); LYMPHOCYTES % (MANUAL) 6 % (13-45); MONOCYTES % (MANUAL) 5 % (3-13); SEGMENTED NEUTROPHILS % (MAN) 89 % (42-78); TOTAL CELLS COUNTED 100
[2018-04-17 06:13] LABS: PLATELET COMMENT ADEQUATE; RBC MORPHOLOGY COMMENT NORMO-CYTIC/CHROMIC; TOXIC VACUOLATION PRESENT
[2018-04-17] MEDS: LANSOPRAZOLE 30 MG TAB.RAP.DR PO SCH (06:16)
[2018-04-17] MEDS: VANCOMYCIN HCL 1,000 MG in DEXTROSE 5%-WATER 250 ML IV SCH ×2 (08:04→20:29)
[2018-04-17] MEDS: IPRATROPIUM/ALBUTEROL 0.5-2.5 MG/3 ML AMPUL NEB SCH ×4 (08:08→19:52)
[2018-04-17] MEDS: AMLODIPINE BESYLATE 5 MG TABLET PO SCH (09:08)
[2018-04-17] MEDS: ASPIRIN 81 MG TABLET, ENT COATED PO SCH (09:08)
[2018-04-17] MEDS: CITALOPRAM HYDROBROMIDE 20 MG TABLET PO SCH (09:09)
[2018-04-17] MEDS: POLYETHYLENE GLYCOL 3350 POWDER 17 GM/1 PACKET PO SCH (09:10)
[2018-04-17] MEDS: BISACODYL 10 MG SUPP.RECT PR SCH ×2 (09:10→22:15)
[2018-04-17] MEDS: ENOXAPARIN SODIUM INJ 40 MG/0.4 ML DISP.SYRIN SUBCUT SCH (09:11)
[2018-04-17] MEDS: CYCLOSPORINE 0.05% OPH EMULSIO 0.4 ML DROPERETTE OU SCH ×2 (09:12→17:30)
[2018-04-17] MEDS ORDERED: INSULIN GLARGINE,HUM.REC.ANLOG 1,000 UNIT/10 ML UNIT SUBCUT SCH (10:00)
[2018-04-17] MEDS ORDERED: INSULIN GLARGINE HUM REC ANLOG 45 UNIT SUBCUT SCH (10:00)
[2018-04-17] MEDS: CEFEPIME 2 GM/D5W RTU 2 GM/50 ML RTUPB IV SCH ×2 (10:43→22:19)
--- NOTE | 2018-04-17 14:59 | PDOC PROGRESS REPORT ---
Subjective Progress Note for:: 04/17/18 Subjective:: Awake and pleasant. No reports of confusion or agitation overnight. Tolerating regular diet. PT eval noted. Reason For Visit: SEPSIS,PNEUMONIA Physical Exam Vital Signs: Temp Pulse Resp BP Pulse Ox 99.1 F 96 16 103/42 L 93 04/17/18 11:49 04/17/18 11:55 04/17/18 11:55 04/17/18 11:49 04/17/18 11:49 Intake & Output 04/16/18 04/17/18 04/18/18 05:59 05:59 05:59 Intake Total 2201 1366 118 Output Total 885 1175 250 Balance 1316 191 -132 Weight 156 lb 11.979 oz General appearance: PRESENT: no acute distress Respiratory exam: PRESENT: clear to auscultation taylor Cardiovascular exam: PRESENT: RRR GI/Abdominal exam: PRESENT: soft Extremities exam: ABSENT: pedal edema Musculoskeletal exam: PRESENT: normal inspection Neurological exam: PRESENT: alert, oriented to person, oriented to place Psychiatric exam: PRESENT: appropriate affect Skin exam: PRESENT: dry, warm Results Laboratory Results: 04/17/18 05:27 04/17/18 05:27 04/17/18 04/17/18 05:27 05:27 WBC 21.6 H RBC 3.36 L Hgb 10.0 L Hct 29.4 L MCV 87 MCH 29.8 MCHC 34.1 RDW 13.7 Plt Count 226 Seg Neutrophils % Not Reportable Lymphocytes % Not Reportable Monocytes % Not Reportable Eosinophils % Not Reportable Basophils % Not Reportable Absolute Neutrophils Not Reportable Absolute Lymphocytes Not Reportable Absolute Monocytes Not Reportable Absolute Eosinophils Not Reportable Absolute Basophils Not Reportable Sodium 144.5 Potassium 3.6 Chloride 111 H Carbon Dioxide 25 Anion Gap 9 BUN 18 Creatinine 0.53 Est GFR ( Amer) > 60 Est GFR (Non-Af Amer) > 60 Glucose 185 H Calcium 9.2 Phosphorus 1.9 L Magnesium 1.6 Albumin 2.5 L 04/15/18 04/16/18 03:57 03:45 NT-Pro-B Natriuret Pep 2750 H 2850 H Impressions: Chest X-Ray 04/13/18 20:08 IMPRESSION: NO ACUTE RADIOGRAPHIC FINDING IN THE CHEST. Head CT 04/13/18 21:14 IMPRESSION: 1. No acute intracranial abnormality. 2. No acute thoracic injury evident. Chronic proximal bilateral humerus fractures. 3. No acute abdominopelvic abnormality. Abdomen/Pelvis CT 04/13/18 21:48 IMPRESSION: 1. No specific acute intrathoracic or intra-abdominal findings are noted to suggest etiology of the patient's symptoms. 2. Large volume of fecal content present throughout the large bowel suggesting fecal stasis or constipation. 3. Wall thickening raising the concern for infectious or inflammatory colitis versus incomplete distention of the proximal ascending colon. 4. Nonspecific bilateral lower lobe bronchial wall thickening and bronchiectasis. The lungs are otherwise clear. 5. Suspected simple RIGHT renal cyst measuring [address] 04/13/18 22:24 IMPRESSION: 1. No specific acute intrathoracic or intra-abdominal findings are noted to suggest etiology of the patient's symptoms. 2. Large volume of fecal content present throughout the large bowel suggesting fecal stasis or constipation. 3. Wall thickening raising the concern for infectious or inflammatory colitis versus incomplete distention of the proximal ascending colon. 4. Nonspecific bilateral lower lobe bronchial wall thickening and bronchiectasis. The lungs are otherwise clear. 5. Suspected simple RIGHT renal cyst measuring 19 mm. Assessment & Plan - Diagnosis (1) COPD exacerbation Is this a current diagnosis for this admission?: Yes Plan: Improving. Continue nebulizers, empiric antibiotics. Still having low-grade fevers. Her white count continues to climb for unclear reasons. Recheck in the morning (2) Acute respiratory failure Qualifiers: Respiratory failure complication: hypoxia Qualified Code(s): J96.01 - Acute respiratory failure with hypoxia Is this a current diagnosis for this admission?: Yes Plan: Wean oxygen as tolerated. States she is on room air at home. Unclear if she should be. Reassess at discharge (3) Sepsis Qualifiers: Sepsis type: sepsis due to unspecified organism Qualified Code(s): A41.9 - Sepsis, unspecified organism Is this a current diagnosis for this admission?: Yes Plan: Last fever 100.6 this morning at 8. Continue empiric antibiotics. Cultures have been negative thus far. (4) Essential hypertension Is this a current diagnosis for this admission?: Yes Plan: Continue home medications. (5) Obstipation Is this a current diagnosis for this admission?: Yes Plan: Resolved (6) Metabolic encephalopathy Is this a current diagnosis for this admission?: Yes Plan: Resolved. I suspect her low-level confusion is chronic. (7) Hypophosphatemia Is this a current diagnosis for this admission?: Yes Plan: Replace (8) Debility Is this a current diagnosis for this admission?: Yes Plan: I think she had limited functional mobility prior to admission. Her illness has made her weaker. I agree with physical therapy that she would probably benefit from a course of inpatient rehab at discharge. Unclear if she will agree.
[2018-04-17] MEDS ORDERED: PHOSPHORUS #1 250 MG TABLET PO ONE (15:30)
[2018-04-17] MEDS: PHOSPHORUS #1 250 MG TABLET PO SCH (16:01)
[2018-04-17] MEDS: ACETAMINOPHEN 325 MG TABLET PO PRN (17:29)
[2018-04-17] MEDS: SIMVASTATIN 40 MG TABLET PO SCH (22:16)
[2018-04-18] MEDS: LANSOPRAZOLE 30 MG TAB.RAP.DR PO SCH (06:26)
[2018-04-18] MEDS: INSULIN LISPRO 100 UNIT/ML 3 ML VIAL SUBCUT PRN ×4 (06:30→22:02)
[2018-04-18] MEDS: VANCOMYCIN HCL 1,000 MG in DEXTROSE 5%-WATER 250 ML IV SCH (08:07)
[2018-04-18] MEDS: PHOSPHORUS #1 250 MG TABLET PO SCH ×2 (08:14→15:27)
[2018-04-18 08:18] LABS: HEMOGLOBIN 9.8 g/dL (12.0-15.5); MEAN CORPUSCULAR HEMOGLOBIN 29.8 pg (27.0-33.4); MEAN CORPUSCULAR HGB CONC 33.8 g/dL (32.0-36.0); MEAN CORPUSCULAR VOLUME 88 fl (80-97); PLATELET COUNT 234 10^3/uL (150-450); RED CELL DISTRIBUTION WIDTH 13.9 % (11.5-14.0); WHITE BLOOD COUNT 10.8 10^3/uL (4.0-10.5)
[2018-04-18 08:24] LABS: ALBUMIN 2.4 g/dL (3.5-5.0); ANION GAP 6 (5-19); BLOOD UREA NITROGEN 15 mg/dL (7-20); CALCIUM 8.9 mg/dL (8.4-10.2); CARBON DIOXIDE 28 mmol/L (22-30); CHLORIDE 105 mmol/L (98-107); GLUCOSE 188 mg/dL (75-110); PHOSPHORUS 2.3 mg/dL (2.5-4.5); POTASSIUM 3.5 mmol/L (3.6-5.0); SODIUM 139.2 mmol/L (137-145)
[2018-04-18 08:28] LABS: VANCOMYCIN,TROUGH 12.9 ug/mL (5.0-20.0)
[2018-04-18] MEDS: IPRATROPIUM/ALBUTEROL 0.5-2.5 MG/3 ML AMPUL NEB SCH ×4 (08:35→19:43)
[2018-04-18 08:40] LABS: ABSOLUTE LYMPHOCYTES# (MANUAL) 2.3 10^3/uL (0.5-4.7); ABSOLUTE MONOCYTES # (MANUAL) 0.2 10^3/uL (0.1-1.4); BASOPHILS % (MANUAL) 1 % (0-2); EOSINOPHILS % (MANUAL) 2 % (0-6); LYMPHOCYTES % (MANUAL) 21 % (13-45); MONOCYTES % (MANUAL) 2 % (3-13); SEGMENTED NEUTROPHILS % (MAN) 74 % (42-78); TOTAL CELLS COUNTED 100
[2018-04-18 08:41] LABS: PLATELET COMMENT ADEQUATE; RBC MORPHOLOGY COMMENT NORMO-CYTIC/CHROMIC; TOXIC GRANULATION 2+; TOXIC VACUOLATION PRESENT
[2018-04-18] MEDS: POLYETHYLENE GLYCOL 3350 POWDER 17 GM/1 PACKET PO SCH (10:43)
[2018-04-18] MEDS: BISACODYL 10 MG SUPP.RECT PR SCH ×2 (10:43→21:47)
[2018-04-18] MEDS: AMLODIPINE BESYLATE 5 MG TABLET PO SCH (10:50)
[2018-04-18] MEDS: ASPIRIN 81 MG TABLET, ENT COATED PO SCH (10:50)
[2018-04-18] MEDS: CEFEPIME 2 GM/D5W RTU 2 GM/50 ML RTUPB IV SCH (10:54)
[2018-04-18] MEDS: ENOXAPARIN SODIUM INJ 40 MG/0.4 ML DISP.SYRIN SUBCUT SCH (10:54)
[2018-04-18] MEDS: CITALOPRAM HYDROBROMIDE 20 MG TABLET PO SCH (10:54)
[2018-04-18] MEDS: CYCLOSPORINE 0.05% OPH EMULSIO 0.4 ML DROPERETTE OU SCH ×2 (10:54→17:12)
--- NOTE | 2018-04-18 11:13 | PDOC PROGRESS REPORT ---
Subjective Progress Note for:: 04/18/18 Subjective:: Awake and pleasant. No reports of confusion or agitation overnight. Tolerating regular diet. PT trupti noted. I discussed going to inpatient rehab, she is going to discuss it with her family. Reason For Visit: SEPSIS,PNEUMONIA Physical Exam Vital Signs: Temp Pulse Resp BP Pulse Ox 98.7 F 84 16 153/53 H 94 04/18/18 07:48 04/18/18 08:38 04/18/18 08:38 04/18/18 07:48 04/18/18 08:38 Intake & Output 04/17/18 04/18/18 04/19/18 05:59 05:59 05:59 Intake Total 1366 873 353 Output Total 1175 1450 Balance 191 -577 353 Weight 156 lb 11.979 oz 161 lb 9.581 oz General appearance: PRESENT: no acute distress Respiratory exam: PRESENT: clear to auscultation taylor Cardiovascular exam: PRESENT: RRR GI/Abdominal exam: PRESENT: soft Extremities exam: ABSENT: pedal edema Musculoskeletal exam: PRESENT: normal inspection Neurological exam: PRESENT: alert Psychiatric exam: PRESENT: appropriate affect Skin exam: PRESENT: warm Results Laboratory Results: 04/18/18 07:55 04/18/18 07:55 04/18/18 04/18/18 07:55 07:55 WBC 10.8 H RBC 3.30 L Hgb 9.8 L Hct 29.0 L MCV 88 MCH 29.8 MCHC 33.8 RDW 13.9 Plt Count 234 Seg Neutrophils % Not Reportable Lymphocytes % Not Reportable Monocytes % Not Reportable Eosinophils % Not Reportable Basophils % Not Reportable Absolute Neutrophils Not Reportable Absolute Lymphocytes Not Reportable Absolute Monocytes Not Reportable Absolute Eosinophils Not Reportable Absolute Basophils Not Reportable Sodium 139.2 Potassium 3.5 L Chloride 105 Carbon Dioxide 28 Anion Gap 6 BUN 15 Creatinine 0.48 L Est GFR ( Amer) > 60 Est GFR (Non-Af Amer) > 60 Glucose 188 H Calcium 8.9 Phosphorus 2.3 L Magnesium 1.4 L Albumin 2.4 L 04/15/18 04/16/18 03:57 03:45 NT-Pro-B Natriuret Pep 2750 H 2850 H Impressions: Chest X-Ray 04/13/18 20:08 IMPRESSION: NO ACUTE RADIOGRAPHIC FINDING IN THE CHEST. Head CT 04/13/18 21:14 IMPRESSION: 1. No acute intracranial abnormality. 2. No acute thoracic injury evident. Chronic proximal bilateral humerus fractures. 3. No acute abdominopelvic abnormality. Abdomen/Pelvis CT 04/13/18 21:48 IMPRESSION: 1. No specific acute intrathoracic or intra-abdominal findings are noted to suggest etiology of the patient's symptoms. 2. Large volume of fecal content present throughout the large bowel suggesting fecal stasis or constipation. 3. Wall thickening raising the concern for infectious or inflammatory colitis versus incomplete distention of the proximal ascending colon. 4. Nonspecific bilateral lower lobe bronchial wall thickening and bronchiectasis. The lungs are otherwise clear. 5. Suspected simple RIGHT renal cyst measuring [address] 04/13/18 22:24 IMPRESSION: 1. No specific acute intrathoracic or intra-abdominal findings are noted to suggest etiology of the patient's symptoms. 2. Large volume of fecal content present throughout the large bowel suggesting fecal stasis or constipation. 3. Wall thickening raising the concern for infectious or inflammatory colitis versus incomplete distention of the proximal ascending colon. 4. Nonspecific bilateral lower lobe bronchial wall thickening and bronchiectasis. The lungs are otherwise clear. 5. Suspected simple RIGHT renal cyst measuring 19 mm. Assessment & Plan - Diagnosis (1) COPD exacerbation Is this a current diagnosis for this admission?: Yes Plan: Improving. Continue nebulizers, and change her antibiotics to oral. Her white count came down overnight to match the rest of her clinical picture. (2) Acute respiratory failure Qualifiers: Respiratory failure complication: hypoxia Qualified Code(s): J96.01 - Acute respiratory failure with hypoxia Is this a current diagnosis for this admission?: Yes Plan: Wean oxygen as tolerated. States she is on room air at home. Unclear if she should be. Reassess at discharge (3) Sepsis Qualifiers: Sepsis type: sepsis due to unspecified organism Qualified Code(s): A41.9 - Sepsis, unspecified organism Is this a current diagnosis for this admission?: Yes Plan: Last fever 330 yesterday afternoon. Change antibiotics to oral. Cultures have been negative thus far. (4) Essential hypertension Is this a current diagnosis for this admission?: Yes Plan: Continue home medications. (5) Hypophosphatemia Is this a current diagnosis for this admission?: Yes Plan: Replace (6) Debility Is this a current diagnosis for this admission?: Yes Plan: I think she had limited functional mobility prior to admission. Her illness has made her weaker. I agree with physical therapy that she would probably benefit from a course of inpatient rehab at discharge. Unclear if she will agree.
[2018-04-18] MEDS: MAGNESIUM SULFATE/D5W 1 GM/100 ML RTUPB IV SCH ×2 (11:51→12:56)
[2018-04-18] MEDS ORDERED: POTASSIUM CHLORIDE 10 MEQ TABLET.SA PO ONE (12:00)
[2018-04-18] MEDS: IBUPROFEN 400 MG TABLET PO PRN (15:27)
[2018-04-18] MEDS: SIMVASTATIN 40 MG TABLET PO SCH (21:46)
[2018-04-19] MEDS: LANSOPRAZOLE 30 MG TAB.RAP.DR PO SCH (05:32)
[2018-04-19] MEDS: PHOSPHORUS #1 250 MG TABLET PO SCH (07:35)
[2018-04-19] MEDS: INSULIN LISPRO 100 UNIT/ML 3 ML VIAL SUBCUT PRN ×4 (07:37→22:48)
[2018-04-19] MEDS: IPRATROPIUM/ALBUTEROL 0.5-2.5 MG/3 ML AMPUL NEB SCH ×4 (08:37→20:20)
[2018-04-19] MEDS: POLYETHYLENE GLYCOL 3350 POWDER 17 GM/1 PACKET PO SCH (09:30)
[2018-04-19] MEDS: AMLODIPINE BESYLATE 5 MG TABLET PO SCH (09:32)
[2018-04-19] MEDS: LEVOFLOXACIN 500 MG TABLET PO SCH (09:32)
[2018-04-19] MEDS: CITALOPRAM HYDROBROMIDE 20 MG TABLET PO SCH (09:32)
[2018-04-19] MEDS: ASPIRIN 81 MG TABLET, ENT COATED PO SCH (09:32)
[2018-04-19] MEDS: ENOXAPARIN SODIUM INJ 40 MG/0.4 ML DISP.SYRIN SUBCUT SCH (09:33)
[2018-04-19] MEDS: CYCLOSPORINE 0.05% OPH EMULSIO 0.4 ML DROPERETTE OU SCH ×2 (09:33→17:17)
[2018-04-19] MEDS: BISACODYL 10 MG SUPP.RECT PR SCH ×2 (09:38→21:22)
[2018-04-19] MEDS: IBUPROFEN 400 MG TABLET PO PRN (14:32)
--- NOTE | 2018-04-19 14:51 | PDOC PROGRESS REPORT ---
Subjective Progress Note for:: 04/19/18 Subjective:: Somewhat agitated and confused today. Insisting she needs to go home to take care of her dogs. No complaints, states she feels well. Reason For Visit: SEPSIS,PNEUMONIA Physical Exam Vital Signs: Temp Pulse Resp BP Pulse Ox 98.1 F 88 20 136/40 H 95 04/19/18 11:49 04/19/18 14:00 04/19/18 11:49 04/19/18 11:49 04/19/18 11:49 Intake & Output 04/18/18 04/19/18 04/20/18 05:59 05:59 05:59 Intake Total 873 1796 354 Output Total 1450 1125 800 Balance -577 671 -446 Weight 161 lb 9.581 oz 161 lb 2.526 oz General appearance: PRESENT: no acute distress Respiratory exam: PRESENT: clear to auscultation taylor Cardiovascular exam: PRESENT: RRR GI/Abdominal exam: PRESENT: soft Extremities exam: PRESENT: other - No edema Musculoskeletal exam: PRESENT: normal inspection Neurological exam: PRESENT: alert, CN II-XII grossly intact. ABSENT: motor sensory deficit Psychiatric exam: PRESENT: agitated Skin exam: PRESENT: dry, warm Results Laboratory Results: 04/18/18 07:55 04/18/18 07:55 04/15/18 04/16/18 03:57 03:45 NT-Pro-B Natriuret Pep 2750 H 2850 H Impressions: Chest X-Ray 04/13/18 20:08 IMPRESSION: NO ACUTE RADIOGRAPHIC FINDING IN THE CHEST. Head CT 04/13/18 21:14 IMPRESSION: 1. No acute intracranial abnormality. 2. No acute thoracic injury evident. Chronic proximal bilateral humerus fractures. 3. No acute abdominopelvic abnormality. Abdomen/Pelvis CT 04/13/18 21:48 IMPRESSION: 1. No specific acute intrathoracic or intra-abdominal findings are noted to suggest etiology of the patient's symptoms. 2. Large volume of fecal content present throughout the large bowel suggesting fecal stasis or constipation. 3. Wall thickening raising the concern for infectious or inflammatory colitis versus incomplete distention of the proximal ascending colon. 4. Nonspecific bilateral lower lobe bronchial wall thickening and bronchiectasis. The lungs are otherwise clear. 5. Suspected simple RIGHT renal cyst measuring [address] 04/13/18 22:24 IMPRESSION: 1. No specific acute intrathoracic or intra-abdominal findings are noted to suggest etiology of the patient's symptoms. 2. Large volume of fecal content present throughout the large bowel suggesting fecal stasis or constipation. 3. Wall thickening raising the concern for infectious or inflammatory colitis versus incomplete distention of the proximal ascending colon. 4. Nonspecific bilateral lower lobe bronchial wall thickening and bronchiectasis. The lungs are otherwise clear. 5. Suspected simple RIGHT renal cyst measuring 19 mm. Assessment & Plan - Diagnosis (1) COPD exacerbation Is this a current diagnosis for this admission?: Yes Plan: Improving. Continue nebulizers, and oral antibiotics (2) Acute respiratory failure Qualifiers: Respiratory failure complication: hypoxia Qualified Code(s): J96.01 - Acute respiratory failure with hypoxia Is this a current diagnosis for this admission?: Yes Plan: Wean oxygen as tolerated. States she is on room air at home. Unclear if she should be. Reassess at discharge (3) Sepsis Qualifiers: Sepsis type: sepsis due to unspecified organism Qualified Code(s): A41.9 - Sepsis, unspecified organism Is this a current diagnosis for this admission?: Yes Plan: Afebrile over 48 hours. Cultures have been negative thus far (4) Essential hypertension Is this a current diagnosis for this admission?: Yes Plan: Continue home medications. (5) Debility Is this a current diagnosis for this admission?: Yes Plan: I think she had limited functional mobility prior to admission. Her illness has made her weaker. I agree with physical therapy that she would probably benefit from a course of inpatient rehab at discharge. I do not think she currently has capacity active in her own best interest currently. Much of what she says makes little sense and sounds to me like paranoid dementia. I will start her on some Namenda at bedtime, continue physical therapy, and continue to anticipate she will go to rehab. Case was discussed with her sons by the nurse and they are in agreement.
[2018-04-19] MEDS ORDERED: METFORMIN HCL 500 MG TABLET PO SCH (16:00)
[2018-04-19] MEDS: MEMANTINE HCL 10 MG TABLET PO SCH (21:20)
[2018-04-19] MEDS: SIMVASTATIN 40 MG TABLET PO SCH (21:21)
[2018-04-20] MEDS: LANSOPRAZOLE 30 MG TAB.RAP.DR PO SCH (05:27)
[2018-04-20] MEDS ORDERED: (PENDING PHARMACY ID) (Insulin Glargine,Hum.Rec.Anlog [Toujeo Solostar] 60 UNIT) SUBCUT SCH (08:12)
[2018-04-20] MEDS: IPRATROPIUM/ALBUTEROL 0.5-2.5 MG/3 ML AMPUL NEB SCH (08:36)
[2018-04-20] MEDS ORDERED: IPRATROPIUM/ALBUTEROL 0.5-2.5 MG/3 ML AMPUL NEB PRN (09:00)
[2018-04-20] MEDS: AMLODIPINE BESYLATE 5 MG TABLET PO SCH (10:57)
[2018-04-20] MEDS: ENOXAPARIN SODIUM INJ 40 MG/0.4 ML DISP.SYRIN SUBCUT SCH (10:57)
[2018-04-20] MEDS: LEVOFLOXACIN 500 MG TABLET PO SCH (10:58)
[2018-04-20] MEDS: POLYETHYLENE GLYCOL 3350 POWDER 17 GM/1 PACKET PO SCH (10:58)
[2018-04-20] MEDS: CITALOPRAM HYDROBROMIDE 20 MG TABLET PO SCH (10:58)
[2018-04-20] MEDS: BISACODYL 10 MG SUPP.RECT PR SCH ×2 (10:58→22:02)
[2018-04-20] MEDS: ASPIRIN 81 MG TABLET, ENT COATED PO SCH (10:59)
[2018-04-20] MEDS: CYCLOSPORINE 0.05% OPH EMULSIO 0.4 ML DROPERETTE OU SCH ×2 (14:04→17:48)
[2018-04-20] MEDS: INSULIN LISPRO 100 UNIT/ML 3 ML VIAL SUBCUT PRN ×2 (14:04→18:52)
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
[2018-04-20] MEDS: SIMVASTATIN 40 MG TABLET PO SCH (22:00)
[2018-04-20] MEDS: MEMANTINE HCL 10 MG TABLET PO SCH (22:00)
[2018-04-21] MEDS: LANSOPRAZOLE 30 MG TAB.RAP.DR PO SCH (05:50)
[2018-04-21 09:07] VITALS: BP 136/49
== END 2018-04-21 08:50 | DRG 871 ==
LOC: ER 20:03 → EH 22:55 → ICU 04-14 02:00 → 3S 04-16 19:35
PROVIDERS: ADMIT Family Medicine; ATTEND Family Medicine
PROC: 5A09557 Assistance with Respiratory Ventilation, Greater than 96 Consecutive Hours, Continuous Positive Airway Pressure (ICD-10-PCS; principal; 2018-04-13)
DX: A41.9 Sepsis, unspecified organism (principal); J96.21 Acute and chronic respiratory failure with hypoxia; E11.00 Type 2 diabetes mellitus with hyperosmolarity without nonketotic hyperglycemic-hyperosmolar coma (NKHHC); J44.1 Chronic obstructive pulmonary disease with (acute) exacerbation; E83.42 Hypomagnesemia; I10 Essential (primary) hypertension; E87.6 Hypokalemia; K59.00 Constipation, unspecified; E83.39 Other disorders of phosphorus metabolism; K21.9 Gastro-esophageal reflux disease without esophagitis; I25.10 Atherosclerotic heart disease of native coronary artery without angina pectoris; G30.9 Alzheimer's disease, unspecified; F02.80 Dementia in other diseases classified elsewhere, unspecified severity, without behavioral disturbance, psychotic disturbance, mood disturbance, and anxiety; M25.551 Pain in right hip; Z90.49 Acquired absence of other specified parts of digestive tract; Z90.710 Acquired absence of both cervix and uterus; I25.2 Old myocardial infarction; Z79.4 Long term (current) use of insulin; Z79.82 Long term (current) use of aspirin; Z99.81 Dependence on supplemental oxygen
CPT/HCPCS: 36415; 51702; 70450; 71045; 71250; 74176; 80053; 80069; 80202; 81001; 82803; 82962; 83605; 83735; 83880; 84100; 84443; 84484; 85025; 85610; 87040; 87086; 93005; 93010; 94640; 94660; 96365; 96375; 99284; 99291; G8978-GP; G8979-GP; J0692; J0696; J1650; J1815; J1956; J3370; J3475; J3490; J7030; J7060; J7512; J7620; S0164

== ENCOUNTER 2018-08-12 01:34 | Inpatient (IN) | payer MEDICARE, OTHER ==
[2018-08-12] MEDS ORDERED: NORMAL SALINE 1000 ML 2,000 ML IV ONE (01:47)
[2018-08-12] MEDS ORDERED: PIPERACILLIN/TAZOBACTAM 4.5 GM VIAL IV ONE (01:47)
[2018-08-12 01:58] LABS: VENOUS BLOOD BASE EXCESS -0.9 mmol/L; VENOUS BLOOD HCO3 22.4 mmol/L (20-32); VENOUS BLOOD PCO2 33.1 mmHg (35-63); VENOUS BLOOD PH 7.45 (7.30-7.42)
[2018-08-12 01:59] LABS: ABSOLUTE LYMPHOCYTES (AUTO) 0.6 10^3/uL (0.5-4.7); ABSOLUTE MONOCYTES (AUTO) 0.1 10^3/uL (0.1-1.4); BASOPHILS % (AUTO) 0.3 % (0-2); EOSINOPHILS % (AUTO) 0.3 % (0-6); HEMATOCRIT 35.4 % (36.0-47.0); HEMOGLOBIN 12.1 g/dL (12.0-15.5); LYMPHOCYTES % (AUTO) 10.4 % (13-45); MEAN CORPUSCULAR HEMOGLOBIN 30.1 pg (27.0-33.4); MEAN CORPUSCULAR HGB CONC 34.2 g/dL (32.0-36.0); MEAN CORPUSCULAR VOLUME 88 fl (80-97); MONOCYTES % (AUTO) 2.5 % (3-13); PLATELET COUNT 171 10^3/uL (150-450); RED BLOOD COUNT 4.03 10^6/uL (3.72-5.28); SEGMENTED NEUTROPHILS % (AUTO) 86.5 % (42-78); TOTAL CELLS COUNTED % (AUTO) 100 %; WHITE BLOOD COUNT 5.8 10^3/uL (4.0-10.5)
[2018-08-12 02:04] LABS: INTERNATIONAL RATION (INR) 1.08; PROTHROMBIN TIME 14.5 SEC (11.4-15.4)
[2018-08-12 02:37] LABS: APPEARANCE,URINE TURBID; BILIRUBIN,URINE NEGATIVE (NEGATIVE); GLUCOSE, URINE >=500 mg/dL (NEGATIVE); KETONES,URINE TRACE mg/dL (NEGATIVE); LEUKOCYTE ESTERASE,URINE LARGE (NEGATIVE); NITRITE,URINE POSITIVE (NEGATIVE); PROTEIN,URINE 100 mg/dL (NEGATIVE); URINE SPECIFIC GRAVITY 1.008
[2018-08-12 02:41] LABS: COLOR,URINE YELLOW
[2018-08-12 02:47] LABS: A TYPE INFLUENZA AG NEGATIVE (NEGATIVE); B INFLUENZA AG NEGATIVE (NEGATIVE)
--- NOTE | 2018-08-12 03:00 | RADIOLOGY REPORT (SQ) ---
EXAM DESCRIPTION: XR CHEST 1 VIEW COMPLETED DATE/TME: 08/12/2018 01:48 CLINICAL HISTORY: Fever COMPARISON: 02/11/2018 FINDINGS: Single frontal view of the chest. Atherosclerotic calcification of the aortic arch. Heart is not enlarged. No consolidation, pneumothorax, or pleural effusion. Leads overlie the chest. Degenerative change of the spine. No acute osseous abnormality. Upper abdominal soft tissues are unremarkable. IMPRESSION: 1. No acute pneumonic process identified.
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
[2018-08-12 04:00] LABS: ALANINE AMINOTRANSFERASE 47 U/L (9-52); ALBUMIN 3.1 g/dL (3.5-5.0); ALKALINE PHOSPHATASE 73 U/L (38-126); ANION GAP 10 (5-19); ASPARTATE AMINO TRANSFERASE 67 U/L (14-36); BILIRUBIN,DIRECT 0.8 mg/dL (0.0-0.4); BILIRUBIN,TOTAL 1.4 mg/dL (0.2-1.3); BLOOD UREA NITROGEN 16 mg/dL (7-20); CALCIUM 8.9 mg/dL (8.4-10.2); CARBON DIOXIDE 22 mmol/L (22-30); CHLORIDE 106 mmol/L (98-107); GLUCOSE 203 mg/dL (75-110); POTASSIUM 3.1 mmol/L (3.6-5.0); SODIUM 138.3 mmol/L (137-145); TOTAL PROTEIN 5.9 g/dL (6.3-8.2)
[2018-08-12] MEDS ORDERED: NORMAL SALINE 1000 ML 1,000 ML IV ONE (04:07)
[2018-08-12] MEDS ORDERED: DEXTROSE 5%-WATER 250 ML with NOREPINEPHRINE BITARTRATE 4 MG IV PRN ×2 (06:10)
[2018-08-12] MEDS ORDERED: NOREPINEPHRINE BITARTRATE INJ/PF 4 MG/4 ML SDV IV ONE (06:13)
[2018-08-12] MEDS ORDERED: ONDANSETRON 4 MG TAB.RAPDIS PO PRN (09:01)
[2018-08-12] MEDS ORDERED: ACETAMINOPHEN 650 MG SUPP.RECT PR PRN (09:01)
[2018-08-12] MEDS ORDERED: TEMAZEPAM 15 MG CAPSULE PO PRN (09:01)
[2018-08-12] MEDS ORDERED: MAGNESIUM HYDROXIDE SUSP 30 ML UDCUP PO PRN (09:01)
[2018-08-12] MEDS ORDERED: MAG HYDROX/AL HYDROX/SIMETH SUSP 30 ML UDCUP PO PRN (09:01)
[2018-08-12] MEDS ORDERED: POTASSI CL 20 MEQ/1/2NS 1L 20 MEQ/1,000 ML RTUINJ IV PRN (09:15)
[2018-08-12] MEDS: DOCUSATE SODIUM 100 MG CAPSULE PO SCH ×2 (11:24→18:25)
[2018-08-12] MEDS: PANTOPRAZOLE SODIUM 40 MG VIAL IV SCH ×2 (11:24→23:08)
--- NOTE | 2018-08-12 11:45 | EKG REPORT ---
SEVERITY:- ABNORMAL ECG - SINUS TACHYCARDIA VENTRICULAR TRIGEMINY REPOL ABNRM SUGGESTS ISCHEMIA, ANT-LAT LEADS : Confirmed by: Giovana Morales MD 12-Aug-2018 11:44:35
[2018-08-12] MEDS ORDERED: DEXTROSE 40% GEL 15 GM TUBE PO PRN ×2 (15:08)
[2018-08-12] MEDS ORDERED: GLUCAGON,HUMAN RECOMB 1 MG INJ IM PRN (15:08)
[2018-08-12] MEDS ORDERED: DEXTROSE 50%-WATER 25 GM/50 ML DISP.SYRIN IV PRN ×2 (15:08)
--- NOTE | 2018-08-12 15:22 | PDOC H&P ---
History of Present Illness Admission Date/PCP: 08/12/18 08:20 WES MAGDALENO MD History of Present Illness: TAMIE HAJI is a 77 year old female she has a history of type 2 diabetes mellitus requiring insulin, essential hypertension, chronic obstructive lung disease, dementia she was transferred to the emergency room for evaluation of altered mental status, she was confused. She was evaluated in the emergency room, she was found to have a low blood pressure, 9778 blood pressure, temperature 102.8, she was treated with IV fluid, IV antibiotic and intravenous , norepinephrine. When I saw the patient in the emergency room she was more responsive, still somewhat confused, she does not recognize me, she has a [place] catheter that was inserted in the ER, the urine appearance was cloudy with sediment suggesting that she probably a UTI, the laboratory called that the blood culture was growing gram-negative rods. She probably has gram-negative sepsis. There is also lactic acidosis. Past Medical History Cardiac Medical History: Reports: Myocardial Infarction, Hyperlipidema, Hypertension Pulmonary Medical History: Reports: Chronic Obstructive Pulmonary Disease (COPD) Endocrine Medical History: Reports: Diabetes Mellitus Type 2 GI Medical History: Reports: Gastroesophageal Reflux Disease Past Surgical History Past Surgical History: Reports: Cholecystectomy, Hysterectomy Social History Smoking Status: Unknown if Ever Smoked Frequency of Alcohol Use: None Hx Recreational Drug Use: No Hx Prescription Drug Abuse: No - Advance Directive Resuscitation Status: Full Code Family History Family History: Reviewed & Not Pertinent Parental Family History Reviewed: Yes Children Family History Reviewed: Yes Sibling(s) Family History Reviewed.: Yes Medication/Allergy Home Medications: Amlodipine Besylate [Norvasc 5 mg Tablet] 5 mg PO DAILY 08/12/18 Aspirin [Aspirin 81 mg Chewable Tablet] 81 mg PO DAILY 08/12/18 Calcium Carbonate [Calcium] 600 mg PO DAILY 08/12/18 Citalopram Hydrobromide [Celexa 10 mg Tablet] 10 mg PO DAILY 08/12/18 Insulin Lispro [Humalog Insulin 100 Unit/1 ml 3 ml Vial] 0 unit SUBCUT .SLD SCALE 08/12/18 Iron 65 mg PO DAILY 08/12/18 Metformin HCl [Glucophage] 1,000 mg PO BID 08/12/18 Oxybutynin Chloride [Ditropan 5 Mg Tablet] 5 mg PO BID 08/12/18 Pantoprazole Sodium [Protonix] 40 mg PO DAILY 08/12/18 Saccharomyces Boulardii [Probiotic] 250 mg PO DAILY 08/12/18 Simvastatin [Zocor 40 mg Tablet] 40 mg PO QPM 08/12/18 Sitagliptin Phosphate [Januvia] 100 mg PO DAILY 08/12/18 Allergies/Adverse Reactions: No Known Allergies Allergy (Verified 08/12/18 13:29) Review of Systems ROS unobtainable: Due to mental status - She is confused and difficult to obtain review of systems Physical Exam Vital Signs: Temp Pulse Resp BP Pulse Ox 98.4 F 21 H 124/37 L 99 08/12/18 14:16 08/12/18 14:16 08/12/18 14:16 08/12/18 14:16 Intake & Output 08/11/18 08/12/18 08/13/18 06:59 06:59 06:59 Intake Total 72 Output Total 1470 Balance -1398 General appearance: PRESENT: other - She is alert and oriented Head exam: PRESENT: atraumatic, normocephalic Eye exam: PRESENT: PERRLA Ear exam: PRESENT: normal external ear exam Neck exam: PRESENT: full ROM Respiratory exam: PRESENT: clear to auscultation taylor Cardiovascular exam: PRESENT: RRR, +S1, +S2 Vascular exam: PRESENT: normal capillary refill GI/Abdominal exam: PRESENT: normal bowel sounds, soft Rectal exam: PRESENT: deferred Neurological exam: PRESENT: alert, CN II-XII grossly intact Psychiatric exam: PRESENT: appropriate affect, normal mood Skin exam: PRESENT: dry, intact, warm Results Impressions: Chest X-Ray 08/12/18 01:48 IMPRESSION: 1. No acute pneumonic process identified. Assessment & Plan - Diagnosis (1) Sepsis Qualifiers: Sepsis type: sepsis due to unspecified organism Qualified Code(s): A41.9 - Sepsis, unspecified organism Is this a current diagnosis for this admission?: Yes Plan: She has gram-negative septicemia most likely due to UTI, discontinue IV norepinephrine, continue normal saline, she received adequate IV fluid in the ER she meets criteria for sepsis (2) Type 2 diabetes mellitus Qualifiers: Diabetes mellitus care home insulin use: with care home use Diabetes mellitus complication status: without complication Qualified Code(s): E11.9 - Type 2 diabetes mellitus without complications; Z79.4 - snf (current) use of insulin; Z79.4 - terminal make up operator (current) use of insulin; Z79.4 - snf ( current) use of insulin; Z79.4 - snf (current) use of insulin Is this a current diagnosis for this admission?: Yes (3) Metabolic encephalopathy Is this a current diagnosis for this admission?: Yes (4) UTI (urinary tract infection) Qualifiers: Urinary tract infection type: site unspecified Hematuria presence: without hematuria Qualified Code(s): N39.0 - Urinary tract infection, site not specified Is this a current diagnosis for this admission?: Yes Plan: Start IV Rocephin, the blood culture is growing gram-negative braulio most likely Enterobacteriaceae
[2018-08-12] MEDS ORDERED: CEFTRIAXONE 1 GM/D5W RTU 1 GM/50 ML RTUPB IV SCH (16:00)
[2018-08-12] MEDS: HEPARIN SOD (PORCINE) 5,000 UNIT/ML 1 ML SYRINGE SUBCUT SCH ×2 (16:21→23:08)
[2018-08-12 17:07] LABS: ANION GAP 5 (5-19); BLOOD UREA NITROGEN 10 mg/dL (7-20); CALCIUM 8.3 mg/dL (8.4-10.2); CARBON DIOXIDE 26 mmol/L (22-30); CHLORIDE 109 mmol/L (98-107); GLUCOSE 218 mg/dL (75-110); POTASSIUM 3.6 mmol/L (3.6-5.0); SODIUM 140.3 mmol/L (137-145)
[2018-08-12] MEDS: CEFTRIAXONE SODIUM 1,000 MG in NORMAL SALINE 50 ML IV SCH (18:25)
[2018-08-13] MEDS: NORMAL SALINE 1000 ML 1,000 ML IV PRN ×2 (02:33→13:22)
[2018-08-13] MEDS: ACETAMINOPHEN 325 MG TABLET PO PRN ×3 (02:36→18:07)
[2018-08-13] MEDS: INSULIN LISPRO 100 UNIT/ML 3 ML VIAL SUBCUT PRN ×5 (03:14→21:44)
[2018-08-13 04:21] LABS: ABSOLUTE EOSINOPHILS # (AUTO) 0.1 10^3/uL (0.0-0.6); ABSOLUTE LYMPHOCYTES (AUTO) 1.8 10^3/uL (0.5-4.7); ABSOLUTE MONOCYTES (AUTO) 0.8 10^3/uL (0.1-1.4); ABSOLUTE NEUT (AUTO) 7.7 10^3/uL (1.7-8.2); BASOPHILS % (AUTO) 0.2 % (0-2); EOSINOPHILS % (AUTO) 0.6 % (0-6); HEMATOCRIT 31.8 % (36.0-47.0); HEMOGLOBIN 10.9 g/dL (12.0-15.5); MEAN CORPUSCULAR HEMOGLOBIN 29.8 pg (27.0-33.4); MEAN CORPUSCULAR HGB CONC 34.4 g/dL (32.0-36.0); MEAN CORPUSCULAR VOLUME 87 fl (80-97); PLATELET COUNT 145 10^3/uL (150-450); RED BLOOD COUNT 3.66 10^6/uL (3.72-5.28); RED CELL DISTRIBUTION WIDTH 14.8 % (11.5-14.0); SEGMENTED NEUTROPHILS % (AUTO) 74.2 % (42-78); TOTAL CELLS COUNTED % (AUTO) 100 %; WHITE BLOOD COUNT 10.4 10^3/uL (4.0-10.5)
[2018-08-13] MEDS: HEPARIN SOD (PORCINE) 5,000 UNIT/ML 1 ML SYRINGE SUBCUT SCH ×3 (05:11→21:42)
[2018-08-13 06:04] LABS: ALANINE AMINOTRANSFERASE 43 U/L (9-52); ALBUMIN 2.4 g/dL (3.5-5.0); ALKALINE PHOSPHATASE 52 U/L (38-126); ANION GAP 5 (5-19); ASPARTATE AMINO TRANSFERASE 32 U/L (14-36); BILIRUBIN,DIRECT 0.2 mg/dL (0.0-0.4); BILIRUBIN,TOTAL 0.3 mg/dL (0.2-1.3); BLOOD UREA NITROGEN 10 mg/dL (7-20); CALCIUM 8.1 mg/dL (8.4-10.2); CARBON DIOXIDE 23 mmol/L (22-30); CHLORIDE 115 mmol/L (98-107); GLUCOSE 164 mg/dL (75-110); POTASSIUM 3.2 mmol/L (3.6-5.0); SODIUM 142.7 mmol/L (137-145); TOTAL PROTEIN 4.7 g/dL (6.3-8.2)
[2018-08-13] MEDS ORDERED: MAGNESIUM SULFATE/D5W 2 GM/200 ML RTUPB IV ONE (06:21)
[2018-08-13] MEDS ORDERED: MAGNESIUM SULFATE/D5W 1 GM/100 ML RTUPB IV ONE (07:00)
[2018-08-13] MEDS: PANTOPRAZOLE SODIUM 40 MG VIAL IV SCH ×2 (09:08→21:42)
[2018-08-13] MEDS: DOCUSATE SODIUM 100 MG CAPSULE PO SCH ×2 (09:09→17:14)
[2018-08-13] MEDS: CEFTRIAXONE SODIUM 1,000 MG in NORMAL SALINE 50 ML IV SCH (17:14)
--- NOTE | 2018-08-13 20:31 | PDOC PROGRESS REPORT ---
Subjective Progress Note for:: 08/13/18 Subjective:: Patient was seen by the bedside, the blood culture and urine culture growing gram-negative braulio, specific organism not yet identified, still having fever with 101 temperature, patient is alert oriented with downgraded to medical floor Reason For Visit: UROSEPSIS WITH HYPOTENSION Physical Exam Vital Signs: Temp Pulse Resp BP Pulse Ox 101.1 F H 81 27 H 115/55 L 99 08/13/18 19:56 08/13/18 08:19 08/13/18 19:05 08/13/18 19:05 08/13/18 19:05 Intake & Output 08/12/18 08/13/18 08/14/18 06:59 06:59 06:59 Intake Total 208 2330 Output Total 2670 2050 Balance -2462 280 Weight 63.1 kg General appearance: PRESENT: no acute distress Eye exam: PRESENT: PERRLA Respiratory exam: PRESENT: clear to auscultation taylor Cardiovascular exam: PRESENT: +S1, +S2 GI/Abdominal exam: PRESENT: soft Neurological exam: PRESENT: alert Results Laboratory Results: 08/13/18 04:11 08/13/18 04:11 08/13/18 08/13/18 04:11 04:11 WBC 10.4 RBC 3.66 L Hgb 10.9 L Hct 31.8 L MCV 87 MCH 29.8 MCHC 34.4 RDW 14.8 H Plt Count 145 L Seg Neutrophils % 74.2 Lymphocytes % 17.0 Monocytes % 8.0 Eosinophils % 0.6 Basophils % 0.2 Absolute Neutrophils 7.7 Absolute Lymphocytes 1.8 Absolute Monocytes 0.8 Absolute Eosinophils 0.1 Absolute Basophils 0.0 Sodium 142.7 Potassium 3.2 L Chloride 115 H Carbon Dioxide 23 Anion Gap 5 BUN 10 Creatinine 0.48 L Est GFR ( Amer) > 60 Est GFR (Non-Af Amer) > 60 Glucose 164 H Calcium 8.1 L Magnesium 1.0 L* Total Bilirubin 0.3 AST 32 ALT 43 Alkaline Phosphatase 52 Total Protein 4.7 L Albumin 2.4 L Impressions: Chest X-Ray 08/12/18 01:48 IMPRESSION: 1. No acute pneumonic process identified. 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 of insulin; Z79.4 - petroleum terminal plant operator (current) use of insulin; Z79.4 - petroleum terminal plant operator ( current) use of insulin; Z79.4 - petroleum terminal plant operator (current) use of insulin Is this a current diagnosis for this admission?: Yes (3) Metabolic encephalopathy Is this a current diagnosis for this admission?: Yes (4) UTI (urinary tract infection) Qualifiers: Urinary tract infection type: site unspecified Hematuria presence: without hematuria Qualified Code(s): N39.0 - Urinary tract infection, site not specified Is this a current diagnosis for this admission?: Yes (5) Gram negative septicemia Is this a current diagnosis for this admission?: Yes Plan: Continue IV antibiotic Rocephin (6) Hypomagnesemia Is this a current diagnosis for this admission?: Yes Plan: Replace magnesium (7) Hypoalbuminemia Is this a current diagnosis for this admission?: Yes Plan: Check urine protein creatinine ratio
[2018-08-13] MEDS ORDERED: (PENDING PHARMACY ID) (Iron [Iron] 65 MG) PO SCH (20:45)
[2018-08-13] MEDS ORDERED: (PENDING PHARMACY ID) (Calcium Carbonate [Calcium] 600 MG) PO SCH (20:45)
[2018-08-13] MEDS ORDERED: (PENDING PHARMACY ID) (Citalopram Hydrobromide [Celexa 10 Mg Tablet] 10 MG) PO SCH (20:45)
[2018-08-13] MEDS ORDERED: SACCHAROMYCES BOULARDII 250 MG PO SCH (20:45)
[2018-08-13 21:31] LABS: ALANINE AMINOTRANSFERASE 49 U/L (9-52); ALBUMIN 2.4 g/dL (3.5-5.0); ALKALINE PHOSPHATASE 65 U/L (38-126); ASPARTATE AMINO TRANSFERASE 55 U/L (14-36); BILIRUBIN,DIRECT 0.4 mg/dL (0.0-0.4); BILIRUBIN,TOTAL 0.4 mg/dL (0.2-1.3); BLOOD UREA NITROGEN 9 mg/dL (7-20); CALCIUM 8.2 mg/dL (8.4-10.2); CARBON DIOXIDE 25 mmol/L (22-30); CHLORIDE 107 mmol/L (98-107); GLUCOSE 260 mg/dL (75-110); POTASSIUM 3.3 mmol/L (3.6-5.0); TOTAL PROTEIN 4.9 g/dL (6.3-8.2)
[2018-08-13 21:37] LABS: ANION GAP 6 (5-19); SODIUM 137.7 mmol/L (137-145)
[2018-08-13] MEDS: SIMVASTATIN 40 MG TABLET PO SCH (21:51)
[2018-08-13] MEDS: OXYBUTYNIN CHLORIDE 5 MG TABLET PO SCH (21:51)
[2018-08-13] MEDS: ASPIRIN 81 MG TABLET, CHEWABLE PO SCH (21:51)
[2018-08-14] MEDS: NORMAL SALINE 1000 ML 1,000 ML IV PRN ×4 (00:46→20:21)
[2018-08-14 01:14] LABS: UR PRO/CREAT RATIO RESULT 1.4 mg/mg (0.0-0.2); URINE PROTEIN 32.9 mg/dL (<12)
[2018-08-14] MEDS: HEPARIN SOD (PORCINE) 5,000 UNIT/ML 1 ML SYRINGE SUBCUT SCH ×3 (06:13→21:48)
[2018-08-14] MEDS: ACETAMINOPHEN 325 MG TABLET PO PRN (06:13)
[2018-08-14] MEDS: LANSOPRAZOLE 30 MG TAB.RAP.DR PO SCH (06:19)
[2018-08-14 07:08] LABS: HEMATOCRIT 33.7 % (36.0-47.0); HEMOGLOBIN 11.6 g/dL (12.0-15.5); MEAN CORPUSCULAR HEMOGLOBIN 29.7 pg (27.0-33.4); MEAN CORPUSCULAR HGB CONC 34.4 g/dL (32.0-36.0); MEAN CORPUSCULAR VOLUME 86 fl (80-97); PLATELET COUNT 139 10^3/uL (150-450); RED CELL DISTRIBUTION WIDTH 14.8 % (11.5-14.0); WHITE BLOOD COUNT 7.7 10^3/uL (4.0-10.5)
[2018-08-14 07:21] LABS: ALANINE AMINOTRANSFERASE 55 U/L (9-52); ALBUMIN 2.6 g/dL (3.5-5.0); ALKALINE PHOSPHATASE 65 U/L (38-126); ANION GAP 6 (5-19); ASPARTATE AMINO TRANSFERASE 46 U/L (14-36); BILIRUBIN,DIRECT 0.5 mg/dL (0.0-0.4); BILIRUBIN,TOTAL 0.6 mg/dL (0.2-1.3); BLOOD UREA NITROGEN 8 mg/dL (7-20); CALCIUM 8.5 mg/dL (8.4-10.2); CARBON DIOXIDE 24 mmol/L (22-30); CHLORIDE 106 mmol/L (98-107); GLUCOSE 218 mg/dL (75-110); POTASSIUM 3.7 mmol/L (3.6-5.0); SODIUM 136.2 mmol/L (137-145); TOTAL PROTEIN 5.3 g/dL (6.3-8.2)
[2018-08-14 08:10] LABS: ABSOLUTE MONOCYTES # (MANUAL) 0.9 10^3/uL (0.1-1.4); ABSOLUTE NEUTROPHILS# (MANUAL) 4.8 10^3/uL (1.7-8.2); BASOPHILS % (MANUAL) 0 % (0-2); EOSINOPHILS % (MANUAL) 0 % (0-6); HYPOCHROMASIA SLIGHT; LYMPHOCYTES % (MANUAL) 26 % (13-45); MONOCYTES % (MANUAL) 12 % (3-13); PLATELET COMMENT DECREASED; POLYCHROMASIA SLIGHT; SEGMENTED NEUTROPHILS % (MAN) 62 % (42-78); TOTAL CELLS COUNTED 100; TOXIC GRANULATION SLIGHT; TOXIC VACUOLATION PRESENT
[2018-08-14] MEDS: INSULIN LISPRO 100 UNIT/ML 3 ML VIAL SUBCUT PRN ×3 (08:23→16:16)
[2018-08-14] MEDS: METFORMIN HCL 500 MG TABLET PO SCH ×2 (08:59→16:16)
[2018-08-14] MEDS: DOCUSATE SODIUM 100 MG CAPSULE PO SCH ×2 (09:00→17:06)
[2018-08-14] MEDS: PANTOPRAZOLE SODIUM 40 MG VIAL IV SCH ×2 (09:00→21:43)
[2018-08-14] MEDS: OXYBUTYNIN CHLORIDE 5 MG TABLET PO SCH ×2 (09:00→17:06)
[2018-08-14] MEDS: ASPIRIN 81 MG TABLET, CHEWABLE PO SCH (09:00)
[2018-08-14] MEDS: MAGNESIUM OXIDE 400 MG TABLET PO SCH (09:06)
[2018-08-14] MEDS: FERROUS SULFATE 325 MG TABLET PO SCH (09:06)
[2018-08-14] MEDS: CITALOPRAM HYDROBROMIDE 20 MG TABLET PO SCH (09:06)
[2018-08-14] MEDS: SITAGLIPTIN PHOSPHATE 50 MG TABLET PO SCH (09:07)
[2018-08-14] MEDS: ERTAPENEM SODIUM 1 GM in NORMAL SALINE 50 ML IV SCH (11:41)
[2018-08-14] MEDS: SIMVASTATIN 40 MG TABLET PO SCH (17:06)
--- NOTE | 2018-08-14 21:18 | PDOC PROGRESS REPORT ---
Subjective Progress Note for:: 08/14/18 Subjective:: The urine culture grew E. coli ESBL, resistant to ceftriaxone, she was empirically started on ceftriaxone for UTI. Reason For Visit: UROSEPSIS WITH HYPOTENSION Physical Exam Vital Signs: Temp Pulse Resp BP Pulse Ox 100.0 F 78 23 H 130/60 H 100 08/14/18 17:00 08/14/18 16:00 08/14/18 17:00 08/14/18 16:53 08/14/18 17:00 Intake & Output 08/13/18 08/14/18 08/15/18 06:59 06:59 06:59 Intake Total 208 3690 1910 Output Total 2670 0790 2035 Balance -2039 -160 -667 Weight 63.1 kg 64.1 kg General appearance: PRESENT: no acute distress Eye exam: PRESENT: PERRLA Respiratory exam: PRESENT: clear to auscultation taylor Cardiovascular exam: PRESENT: +S1, +S2 GI/Abdominal exam: PRESENT: soft Neurological exam: PRESENT: alert Results Laboratory Results: 08/14/18 06:32 08/14/18 06:32 08/13/18 08/14/18 08/14/18 20:45 06:32 06:32 WBC 7.7 RBC 3.90 Hgb 11.6 L Hct 33.7 L MCV 86 MCH 29.7 MCHC 34.4 RDW 14.8 H Plt Count 139 L Seg Neutrophils % Not Reportable Lymphocytes % Not Reportable Monocytes % Not Reportable Eosinophils % Not Reportable Basophils % Not Reportable Absolute Neutrophils Not Reportable Absolute Lymphocytes Not Reportable Absolute Monocytes Not Reportable Absolute Eosinophils Not Reportable Absolute Basophils Not Reportable Sodium 137.7 136.2 L Potassium 3.3 L 3.7 Chloride 107 106 Carbon Dioxide 25 24 Anion Gap 6 6 BUN 9 8 Creatinine 0.53 0.46 L Est GFR ( Amer) > 60 > 60 Est GFR (Non-Af Amer) > 60 > 60 Glucose 260 H 218 H Calcium 8.2 L 8.5 Magnesium 1.1 L* Total Bilirubin 0.4 0.6 AST 55 H 46 H ALT 49 55 H Alkaline Phosphatase 65 65 Total Protein 4.9 L 5.3 L Albumin 2.4 L 2.6 L Impressions: Chest X-Ray 08/12/18 01:48 IMPRESSION: 1. No acute pneumonic process identified. Assessment & Plan - Diagnosis (1) Sepsis Qualifiers: Sepsis type: sepsis due to unspecified organism Qualified Code(s): A41.9 - Sepsis, unspecified organism Is this a current diagnosis for this admission?: Yes (2) Type 2 diabetes mellitus Qualifiers: Diabetes mellitus oysterman insulin use: with oysterman use Diabetes mellitus complication status: without complication Qualified Code(s): E11.9 - Type 2 diabetes mellitus without complications; Z79.4 - snf (current) use of insulin; Z79.4 - intermodal truck driver (current) use of insulin; Z79.4 - snf ( current) use of insulin; Z79.4 - snf (current) use of insulin Is this a current diagnosis for this admission?: Yes (3) Metabolic encephalopathy Is this a current diagnosis for this admission?: Yes (4) UTI (urinary tract infection) Qualifiers: Urinary tract infection type: site unspecified Hematuria presence: without hematuria Qualified Code(s): N39.0 - Urinary tract infection, site not specified Is this a current diagnosis for this admission?: Yes (5) Gram negative septicemia Is this a current diagnosis for this admission?: Yes (6) Hypomagnesemia Is this a current diagnosis for this admission?: Yes (7) Hypoalbuminemia Is this a current diagnosis for this admission?: Yes (8) UTI due to extended-spectrum beta lactamase (ESBL) producing Escherichia coli Is this a current diagnosis for this admission?: Yes Plan: Discontinue ceftriaxone, start IV ertapenem
[2018-08-15 04:22] LABS: ABSOLUTE EOSINOPHILS # (AUTO) 0.1 10^3/uL (0.0-0.6); ABSOLUTE LYMPHOCYTES (AUTO) 1.8 10^3/uL (0.5-4.7); ABSOLUTE MONOCYTES (AUTO) 0.7 10^3/uL (0.1-1.4); ABSOLUTE NEUT (AUTO) 3.4 10^3/uL (1.7-8.2); BASOPHILS % (AUTO) 0.4 % (0-2); EOSINOPHILS % (AUTO) 1.6 % (0-6); HEMATOCRIT 33.7 % (36.0-47.0); HEMOGLOBIN 11.4 g/dL (12.0-15.5); LYMPHOCYTES % (AUTO) 29.8 % (13-45); MEAN CORPUSCULAR HEMOGLOBIN 29.7 pg (27.0-33.4); MEAN CORPUSCULAR HGB CONC 33.9 g/dL (32.0-36.0); MEAN CORPUSCULAR VOLUME 88 fl (80-97); MONOCYTES % (AUTO) 11.7 % (3-13); PLATELET COUNT 163 10^3/uL (150-450); RED BLOOD COUNT 3.85 10^6/uL (3.72-5.28); RED CELL DISTRIBUTION WIDTH 14.5 % (11.5-14.0); SEGMENTED NEUTROPHILS % (AUTO) 56.5 % (42-78); TOTAL CELLS COUNTED % (AUTO) 100 %; WHITE BLOOD COUNT 5.9 10^3/uL (4.0-10.5)
[2018-08-15 05:11] LABS: ALANINE AMINOTRANSFERASE 54 U/L (9-52); ALBUMIN 2.4 g/dL (3.5-5.0); ALKALINE PHOSPHATASE 63 U/L (38-126); ANION GAP 6 (5-19); ASPARTATE AMINO TRANSFERASE 48 U/L (14-36); BILIRUBIN,DIRECT 0.2 mg/dL (0.0-0.4); BILIRUBIN,TOTAL 0.3 mg/dL (0.2-1.3); BLOOD UREA NITROGEN 7 mg/dL (7-20); CALCIUM 8.7 mg/dL (8.4-10.2); CARBON DIOXIDE 25 mmol/L (22-30); CHLORIDE 108 mmol/L (98-107); GLUCOSE 146 mg/dL (75-110); POTASSIUM 3.6 mmol/L (3.6-5.0); SODIUM 139.4 mmol/L (137-145); TOTAL PROTEIN 5.1 g/dL (6.3-8.2)
[2018-08-15] MEDS ORDERED: MAGNESIUM SULFATE 4 GM/D5W 100 ML IV ONE ×2 (06:00→10:00)
[2018-08-15] MEDS: HEPARIN SOD (PORCINE) 5,000 UNIT/ML 1 ML SYRINGE SUBCUT SCH ×3 (06:28→21:16)
[2018-08-15] MEDS: LANSOPRAZOLE 30 MG TAB.RAP.DR PO SCH (06:28)
[2018-08-15] MEDS: NORMAL SALINE 1000 ML 1,000 ML IV PRN ×2 (07:27→22:47)
[2018-08-15] MEDS: CITALOPRAM HYDROBROMIDE 20 MG TABLET PO SCH (10:03)
[2018-08-15] MEDS: DOCUSATE SODIUM 100 MG CAPSULE PO SCH ×2 (10:03→17:25)
[2018-08-15] MEDS: METFORMIN HCL 500 MG TABLET PO SCH ×2 (10:04→16:41)
[2018-08-15] MEDS: FERROUS SULFATE 325 MG TABLET PO SCH (10:04)
[2018-08-15] MEDS: ASPIRIN 81 MG TABLET, CHEWABLE PO SCH (10:04)
[2018-08-15] MEDS: MAGNESIUM OXIDE 400 MG TABLET PO SCH (10:04)
[2018-08-15] MEDS: SITAGLIPTIN PHOSPHATE 50 MG TABLET PO SCH (10:04)
[2018-08-15] MEDS: MAGNESIUM SULFATE/D5W 1 GM/100 ML RTUPB IV SCH ×4 (10:05→18:30)
[2018-08-15] MEDS: OXYBUTYNIN CHLORIDE 5 MG TABLET PO SCH ×2 (10:11→17:25)
[2018-08-15] MEDS: ERTAPENEM SODIUM 1 GM in NORMAL SALINE 50 ML IV SCH (13:59)
[2018-08-15] MEDS: INSULIN LISPRO 100 UNIT/ML 3 ML VIAL SUBCUT PRN ×2 (14:08→21:29)
[2018-08-15] MEDS ORDERED: MAGNESIUM SULFATE/D5W 1 GM/100 ML RTUPB IV ONE ×2 (16:38→18:27)
[2018-08-15] MEDS: SIMVASTATIN 40 MG TABLET PO SCH (17:25)
--- NOTE | 2018-08-15 18:03 | PDOC PROGRESS REPORT ---
Subjective Progress Note for:: 08/15/18 Subjective:: She has ESBL E. coli UTI, she was started on IV antibiotic and ertapenem yesterday. Reason For Visit: UROSEPSIS WITH HYPOTENSION Physical Exam Vital Signs: Temp Pulse Resp BP Pulse Ox 98.6 F 71 16 134/40 H 97 08/15/18 16:00 08/15/18 16:00 08/15/18 16:00 08/15/18 16:00 08/15/18 16:00 Intake & Output 08/14/18 08/15/18 08/16/18 06:59 06:59 06:59 Intake Total 3690 1960 2092 Output Total 3850 9595 775 Balance -160 -1775 1317 Weight 64.1 kg 62.4 kg General appearance: PRESENT: no acute distress Eye exam: PRESENT: PERRLA Respiratory exam: PRESENT: clear to auscultation taylor Cardiovascular exam: PRESENT: +S1, +S2 GI/Abdominal exam: PRESENT: soft Neurological exam: PRESENT: alert Results Laboratory Results: 08/15/18 03:47 08/15/18 03:47 08/15/18 08/15/18 03:47 03:47 WBC 5.9 RBC 3.85 Hgb 11.4 L Hct 33.7 L MCV 88 MCH 29.7 MCHC 33.9 RDW 14.5 H Plt Count 163 Seg Neutrophils % 56.5 Lymphocytes % 29.8 Monocytes % 11.7 Eosinophils % 1.6 Basophils % 0.4 Absolute Neutrophils 3.4 Absolute Lymphocytes 1.8 Absolute Monocytes 0.7 Absolute Eosinophils 0.1 Absolute Basophils 0.0 Sodium 139.4 Potassium 3.6 Chloride 108 H Carbon Dioxide 25 Anion Gap 6 BUN 7 Creatinine 0.42 L Est GFR ( Amer) > 60 Est GFR (Non-Af Amer) > 60 Glucose 146 H Calcium 8.7 Magnesium 0.9 L* Total Bilirubin 0.3 AST 48 H ALT 54 H Alkaline Phosphatase 63 Total Protein 5.1 L Albumin 2.4 L Impressions: Chest X-Ray 08/12/18 01:48 IMPRESSION: 1. No acute pneumonic process identified. Assessment & Plan - Diagnosis (1) Sepsis Qualifiers: Sepsis type: sepsis due to unspecified organism Qualified Code(s): A41.9 - Sepsis, unspecified organism Is this a current diagnosis for this admission?: Yes (2) Type 2 diabetes mellitus Qualifiers: Diabetes mellitus terminal operator insulin use: with retirement use Diabetes mellitus complication status: without complication Qualified Code(s): E11.9 - Type 2 diabetes mellitus without complications; Z79.4 - correction (current) use of insulin; Z79.4 - parts counterman (current) use of insulin; Z79.4 - parts counterman ( current) use of insulin; Z79.4 - correction (current) use of insulin Is this a current diagnosis for this admission?: Yes (3) Metabolic encephalopathy Is this a current diagnosis for this admission?: Yes (4) UTI (urinary tract infection) Qualifiers: Urinary tract infection type: site unspecified Hematuria presence: without hematuria Qualified Code(s): N39.0 - Urinary tract infection, site not specified Is this a current diagnosis for this admission?: Yes (5) Gram negative septicemia Is this a current diagnosis for this admission?: Yes (6) Hypomagnesemia Is this a current diagnosis for this admission?: Yes (7) Hypoalbuminemia Is this a current diagnosis for this admission?: Yes (8) UTI due to extended-spectrum beta lactamase (ESBL) producing Escherichia coli Is this a current diagnosis for this admission?: Yes Plan: She has ESBL E. coli septicemia, UTI sensitive only to IV gabapenem class of IV antibiotic , This is day 2 of the IV antibiotic therapy she was empirically initially treated with Rocephin, the bacteria is resistant to Rocephin
[2018-08-16] MEDS: LANSOPRAZOLE 30 MG TAB.RAP.DR PO SCH (05:52)
[2018-08-16] MEDS: HEPARIN SOD (PORCINE) 5,000 UNIT/ML 1 ML SYRINGE SUBCUT SCH ×3 (05:52→21:31)
[2018-08-16] MEDS: OXYBUTYNIN CHLORIDE 5 MG TABLET PO SCH ×2 (09:17→18:38)
[2018-08-16] MEDS: NORMAL SALINE 1000 ML 1,000 ML IV PRN (09:17)
[2018-08-16] MEDS: METFORMIN HCL 500 MG TABLET PO SCH ×2 (09:17→18:38)
[2018-08-16] MEDS: SITAGLIPTIN PHOSPHATE 50 MG TABLET PO SCH (09:17)
[2018-08-16] MEDS: ASPIRIN 81 MG TABLET, CHEWABLE PO SCH (09:18)
[2018-08-16] MEDS: DOCUSATE SODIUM 100 MG CAPSULE PO SCH ×2 (09:18→18:37)
[2018-08-16] MEDS: CALCIUM CARBONATE 500 MG TABLET PO SCH (09:18)
[2018-08-16] MEDS: MAGNESIUM OXIDE 400 MG TABLET PO SCH (09:18)
[2018-08-16] MEDS: CITALOPRAM HYDROBROMIDE 20 MG TABLET PO SCH (09:18)
[2018-08-16] MEDS: FERROUS SULFATE 325 MG TABLET PO SCH (09:19)
[2018-08-16] MEDS: ERTAPENEM SODIUM 1 GM in NORMAL SALINE 50 ML IV SCH (14:23)
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
--- NOTE | 2018-08-16 15:21 | PDOC DISCHARGE SUMMARY ---
General - Admit/Disc Date/PCP Admission Date/Primary Care Provider: 08/12/18 08:20 WES MAGDALENO MD Discharge Date: 08/17/18 - Discharge Diagnosis (1) Sepsis Is this a current diagnosis for this admission?: Yes (2) Type 2 diabetes mellitus Is this a current diagnosis for this admission?: Yes (3) Metabolic encephalopathy Is this a current diagnosis for this admission?: Yes (4) UTI (urinary tract infection) Is this a current diagnosis for this admission?: Yes (5) Gram negative septicemia Is this a current diagnosis for this admission?: Yes (6) Hypomagnesemia Is this a current diagnosis for this admission?: Yes (7) Hypoalbuminemia Is this a current diagnosis for this admission?: Yes (8) UTI due to extended-spectrum beta lactamase (ESBL) producing Escherichia coli Is this a current diagnosis for this admission?: Yes - Additional Information Resuscitation Status: Full Code Prescriptions: Ertapenem Sodium [Ertapenem] 1 gm IJ DAILY #7 vial Magnesium Oxide [Mag-Ox 400 mg Tablet] 400 mg PO DAILY #90 tablet Home Medications: Amlodipine Besylate [Norvasc 5 mg Tablet] 5 mg PO DAILY 08/12/18 Calcium Carbonate [Calcium] 600 mg PO DAILY 08/12/18 Citalopram Hydrobromide [Celexa 10 mg Tablet] 10 mg PO DAILY 08/12/18 Insulin Lispro [Humalog Insulin (Lispro) 100 unit/mL] 0 unit SUBCUT .SLD SCALE 08/12/18 Iron 65 mg PO DAILY 08/12/18 Metformin HCl [Glucophage] 1,000 mg PO BID 08/12/18 Oxybutynin Chloride [Ditropan 5 mg Tablet] 5 mg PO BID 08/12/18 Pantoprazole Sodium [Protonix] 40 mg PO DAILY 08/12/18 Saccharomyces Boulardii [Probiotic] 250 mg PO DAILY 08/12/18 Simvastatin [Zocor 40 mg Tablet] 40 mg PO QPM 08/12/18 Sitagliptin Phosphate [Januvia] 100 mg PO DAILY 08/12/18 Aspirin [Aspirin 81 mg Chewable Tablet] 81 mg PO DAILY tab.chew 08/16/18 Docusate Sodium [Colace 100 mg Capsule] 100 mg PO BID capsule 08/16/18 Ertapenem Sodium [Ertapenem] 1 gm IJ DAILY #7 vial 08/16/18 Magnesium Oxide [Mag-Ox 400 mg Tablet] 400 mg PO DAILY #90 tablet 08/16/18 Physical Exam Vital Signs: Temp Pulse Resp BP Pulse Ox 98.7 F 65 17 149/48 H 97 08/16/18 11:16 08/16/18 11:16 08/16/18 11:16 08/16/18 11:16 08/16/18 11:16 Intake & Output 08/15/18 08/16/18 08/17/18 06:59 06:59 06:59 Intake Total 1960 4180 1237 Output Total 3735 3450 Balance -1788 396 4709 Weight 55.8 kg Results Laboratory Results: 08/15/18 03:47 08/15/18 03:47 Impressions: Chest X-Ray 08/12/18 01:48 IMPRESSION: 1. No acute pneumonic process identified.
[2018-08-16 16:24] LABS: ALANINE AMINOTRANSFERASE 44 U/L (9-52); ALBUMIN 2.5 g/dL (3.5-5.0); ALKALINE PHOSPHATASE 75 U/L (38-126); ANION GAP 9 (5-19); ASPARTATE AMINO TRANSFERASE 32 U/L (14-36); BILIRUBIN,DIRECT 0.2 mg/dL (0.0-0.4); BILIRUBIN,TOTAL 0.2 mg/dL (0.2-1.3); BLOOD UREA NITROGEN 5 mg/dL (7-20); CALCIUM 8.9 mg/dL (8.4-10.2); CARBON DIOXIDE 24 mmol/L (22-30); CHLORIDE 109 mmol/L (98-107); GLUCOSE 178 mg/dL (75-110); POTASSIUM 3.9 mmol/L (3.6-5.0); SODIUM 141.7 mmol/L (137-145); TOTAL PROTEIN 5.1 g/dL (6.3-8.2)
[2018-08-16] MEDS: SIMVASTATIN 40 MG TABLET PO SCH (18:38)
[2018-08-17] MEDS: HEPARIN SOD (PORCINE) 5,000 UNIT/ML 1 ML SYRINGE SUBCUT SCH ×3 (05:36→21:16)
[2018-08-17] MEDS: LANSOPRAZOLE 30 MG TAB.RAP.DR PO SCH (05:36)
[2018-08-17] MEDS: METFORMIN HCL 500 MG TABLET PO SCH ×2 (09:22→17:38)
[2018-08-17] MEDS: CITALOPRAM HYDROBROMIDE 20 MG TABLET PO SCH (11:00)
[2018-08-17] MEDS: CALCIUM CARBONATE 500 MG TABLET PO SCH (11:02)
[2018-08-17] MEDS: ASPIRIN 81 MG TABLET, CHEWABLE PO SCH (11:02)
[2018-08-17] MEDS: MAGNESIUM OXIDE 400 MG TABLET PO SCH (11:02)
[2018-08-17] MEDS: FERROUS SULFATE 325 MG TABLET PO SCH (11:02)
[2018-08-17] MEDS: DOCUSATE SODIUM 100 MG CAPSULE PO SCH ×2 (11:02→17:38)
[2018-08-17] MEDS: SITAGLIPTIN PHOSPHATE 50 MG TABLET PO SCH (11:03)
[2018-08-17] MEDS: OXYBUTYNIN CHLORIDE 5 MG TABLET PO SCH ×2 (11:03→17:38)
--- NOTE | 2018-08-17 11:06 | RADIOLOGY REPORT (SQ) ---
EXAM DESCRIPTION: PICC INSERTION; FLUORO/CV PLACEMENT; U/S GUIDE FOR VASCULAR ACCESS COMPLETED DATE/TIME: 08/17/2018 10:43 am REASON FOR STUDY: TO ADMINISTER IV ANTIBIOTIC OUTPATIENT ; ADMINISTER IV ANTIBIOTIC; IV ACCESS COMPARISON: AP chest 08/12/2018 FLUOROSCOPY TIME: 1.5 minutes An ultrasound image and a digital chest image saved to PACS. TECHNIQUE: Fluoroscopic and ultrasound guided PICC placement. LIMITATIONS: None. PROCEDURE: After written consent and assessment were obtained, the patient was brought into the fluo roscopy room and placed supine on the table. Ultrasound evaluation of potential access sites were per formed. After successfully identifying a patent left basilic vein, the left arm was prepped and drape d in a sterile fashion along with the ultrasound probe. The entry site was anesthetized with 1% lidoc elier. A 21 gauge 7 cm needle was advanced through the skin and into the basilic vein under live ultra sound guidance. An ultrasound image was saved to PACS confirming access site. A .018 guide wire was then inserted through the needle and into the venous system. We were unable to pass the guidewire m ore proximal than the left proximal humeral diaphysis, where an old healed humerus fracture was noted . Ultrasound evaluation of potential access sites was performed of the right arm. After successfully i dentifying a patent right basilic vein, the right arm was prepped and draped in sterile fashion, rin g with the ultrasound probe. The entry site was anesthetized with 1% lidocaine. A 21 gauge 7 cm nee dle was advanced through the skin and into the right vein under live ultrasound guidance. An ultraso und image was saved to PACS confirming access site. A .018 guide wire was then inserted through the needle and into the venous system. The needle was then removed and an 11 blade scalpel was used to make a 1cm skin incision. A 5 fr pee l-away sheath was advanced over the wire and into the venous system. A measurement was then made usin g the existing wire and live fluoroscopic guidance. The wire was then removed and trimmed. The PICC w as advanced through the peel-away sheath and into the venous system. The peel-away sheath was removed and the catheter was adhered to the patients arm with a stat lock. The catheter was then aspirated a nd flushed and a sterile bandage was placed over the access site. A fluoroscopic spot image was save d to PACS confirming the catheter tip within the superior vena cava. IMPRESSION: SUCCESSFUL PLACEMENT OF A 5 FR DUAL LUMEN 36 CM PICC IN THE RIGHT BASILIC VEIN. Attempted placement in the left basilic vein was unsuccessful. COMMENT: Patient medication list reviewed: Yes- Quality ID# 130:Eligible professional attests to doc umenting in the medical record they obtained, updated, or reviewed the patient's current medications. . Quality ID 145: Final reports for procedures using fluoroscopy that document radiation exposure jose deni, or exposure time and number of fluorographic images (if radiation exposure indices are not avail able) Quality ID #76: The patient was prepped and draped using maximum sterile barrier technique including cap, mask, sterile gown, sterile gloves, a large sterile sheet, hand hygiene, and 2% Chlorhexidine fo r cutaneous antisepsis. When ultrasound is used, sterile ultrasound techniques are followed requiring sterile gel and sterile probes. TECHNICAL DOCUMENTATION: JOB ID: [id number] [employer]- All Rights Reserved rev-04/10 Reading location - IP/workstation name: [email or web address]
[2018-08-17] MEDS: ERTAPENEM SODIUM 1 GM in NORMAL SALINE 50 ML IV SCH (13:46)
[2018-08-17] MEDS: INSULIN LISPRO 100 UNIT/ML 3 ML VIAL SUBCUT PRN (13:52)
[2018-08-17] MEDS: SIMVASTATIN 40 MG TABLET PO SCH (17:38)
--- NOTE | 2018-08-17 21:00 | PDOC PROGRESS REPORT ---
Subjective Progress Note for:: 08/17/18 Subjective:: Patient seen by the bedside, she was supposed to be discharged home today on home IV antibiotic but she cannot afford the co-pay for the IV antibiotic Reason For Visit: UROSEPSIS WITH HYPOTENSION Physical Exam Vital Signs: Temp Pulse Resp BP Pulse Ox 98.4 F 72 16 144/60 H 97 08/17/18 19:16 08/17/18 19:16 08/17/18 19:16 08/17/18 19:16 08/17/18 19:16 Intake & Output 08/16/18 08/17/18 08/18/18 06:59 06:59 06:59 Intake Total 4180 2093 830 Output Total 3450 2650 1200 Balance 205 -978 -716 Weight 55.8 kg 64.2 kg General appearance: PRESENT: no acute distress Eye exam: PRESENT: PERRLA Respiratory exam: PRESENT: clear to auscultation taylor Cardiovascular exam: PRESENT: +S1, +S2 GI/Abdominal exam: PRESENT: soft Neurological exam: PRESENT: alert Results Laboratory Results: 08/15/18 03:47 08/16/18 15:25 Impressions: Chest X-Ray 08/12/18 01:48 IMPRESSION: 1. No acute pneumonic process identified. Guidance Fluoroscopy 08/17/18 00:00 IMPRESSION: SUCCESSFUL PLACEMENT OF A 5 FR DUAL LUMEN 36 CM PICC IN THE RIGHT BASILIC VEIN. Attempted placement in the left basilic vein was unsuccessful. Interventional Vascular Procedure 08/17/18 00:00 IMPRESSION: SUCCESSFUL PLACEMENT OF A 5 FR DUAL LUMEN 36 CM PICC IN THE RIGHT BASILIC VEIN. Attempted placement in the left basilic vein was unsuccessful. PICC Line Insertion 08/17/18 00:00 IMPRESSION: SUCCESSFUL PLACEMENT OF A 5 FR DUAL LUMEN 36 CM PICC IN THE RIGHT BASILIC VEIN. Attempted placement in the left basilic vein was unsuccessful. Assessment & Plan - Diagnosis (1) Sepsis Qualifiers: Sepsis type: sepsis due to unspecified organism Qualified Code(s): A41.9 - Sepsis, unspecified organism Is this a current diagnosis for this admission?: Yes (2) Type 2 diabetes mellitus Qualifiers: Diabetes mellitus rat exterminator insulin use: with rat exterminator use Diabetes mellitus complication status: without complication Qualified Code(s): E11.9 - Type 2 diabetes mellitus without complications; Z79.4 - terminal supervisor (current) use of insulin; Z79.4 - senior care (current) use of insulin; Z79.4 - senior care ( current) use of insulin; Z79.4 - terminal supervisor (current) use of insulin Is this a current diagnosis for this admission?: Yes (3) Metabolic encephalopathy Is this a current diagnosis for this admission?: Yes (4) UTI (urinary tract infection) Qualifiers: Urinary tract infection type: site unspecified Hematuria presence: without hematuria Qualified Code(s): N39.0 - Urinary tract infection, site not specified Is this a current diagnosis for this admission?: Yes (5) Gram negative septicemia Is this a current diagnosis for this admission?: Yes (6) Hypomagnesemia Is this a current diagnosis for this admission?: Yes (7) Hypoalbuminemia Is this a current diagnosis for this admission?: Yes (8) UTI due to extended-spectrum beta lactamase (ESBL) producing Escherichia coli Is this a current diagnosis for this admission?: Yes - Plan Summary Plan Summary: Continue IV antibiotic
[2018-08-18] MEDS: LANSOPRAZOLE 30 MG TAB.RAP.DR PO SCH (06:30)
[2018-08-18] MEDS: HEPARIN SOD (PORCINE) 5,000 UNIT/ML 1 ML SYRINGE SUBCUT SCH ×3 (06:30→22:24)
[2018-08-18] MEDS: NORMAL SALINE 1000 ML 1,000 ML IV PRN ×2 (08:14→18:17)
[2018-08-18] MEDS: METFORMIN HCL 500 MG TABLET PO SCH ×2 (08:14→16:50)
[2018-08-18] MEDS: OXYBUTYNIN CHLORIDE 5 MG TABLET PO SCH ×2 (09:18→17:01)
[2018-08-18] MEDS: CITALOPRAM HYDROBROMIDE 20 MG TABLET PO SCH (09:18)
[2018-08-18] MEDS: DOCUSATE SODIUM 100 MG CAPSULE PO SCH ×2 (09:18→17:00)
[2018-08-18] MEDS: SITAGLIPTIN PHOSPHATE 50 MG TABLET PO SCH (09:18)
[2018-08-18] MEDS: MAGNESIUM OXIDE 400 MG TABLET PO SCH (09:19)
[2018-08-18] MEDS: FERROUS SULFATE 325 MG TABLET PO SCH (09:19)
[2018-08-18] MEDS: CALCIUM CARBONATE 500 MG TABLET PO SCH (09:19)
[2018-08-18] MEDS: ASPIRIN 81 MG TABLET, CHEWABLE PO SCH (09:19)
[2018-08-18] MEDS: ERTAPENEM SODIUM 1 GM in NORMAL SALINE 50 ML IV SCH (12:42)
[2018-08-18] MEDS: INSULIN LISPRO 100 UNIT/ML 3 ML VIAL SUBCUT PRN ×2 (12:45→16:49)
[2018-08-18] MEDS: SIMVASTATIN 40 MG TABLET PO SCH (17:00)
--- NOTE | 2018-08-18 21:16 | PDOC PROGRESS REPORT ---
Subjective Progress Note for:: 08/18/18 Subjective:: Patient is seen by the bedside, she continues IV Invanz Reason For Visit: UROSEPSIS WITH HYPOTENSION Physical Exam Vital Signs: Temp Pulse Resp BP Pulse Ox 98.5 F 63 15 159/52 H 97 08/18/18 19:12 08/18/18 19:12 08/18/18 19:12 08/18/18 19:12 08/18/18 19:12 Intake & Output 08/17/18 08/18/18 08/19/18 06:59 06:59 06:59 Intake Total 3093 1451 1671 Output Total 2650 2800 1500 Balance 443 -1349 171 Weight 64.2 kg 62.9 kg General appearance: PRESENT: no acute distress Eye exam: PRESENT: PERRLA Respiratory exam: PRESENT: clear to auscultation taylor Cardiovascular exam: PRESENT: +S1, +S2 GI/Abdominal exam: PRESENT: soft Neurological exam: PRESENT: alert Results Laboratory Results: 08/15/18 03:47 08/16/18 15:25 Impressions: Chest X-Ray 08/12/18 01:48 IMPRESSION: 1. No acute pneumonic process identified. Guidance Fluoroscopy 08/17/18 00:00 IMPRESSION: SUCCESSFUL PLACEMENT OF A 5 FR DUAL LUMEN 36 CM PICC IN THE RIGHT BASILIC VEIN. Attempted placement in the left basilic vein was unsuccessful. Interventional Vascular Procedure 08/17/18 00:00 IMPRESSION: SUCCESSFUL PLACEMENT OF A 5 FR DUAL LUMEN 36 CM PICC IN THE RIGHT BASILIC VEIN. Attempted placement in the left basilic vein was unsuccessful. PICC Line Insertion 08/17/18 00:00 IMPRESSION: SUCCESSFUL PLACEMENT OF A 5 FR DUAL LUMEN 36 CM PICC IN THE RIGHT BASILIC VEIN. Attempted placement in the left basilic vein was unsuccessful. Assessment & Plan - Diagnosis (1) Sepsis Qualifiers: Sepsis type: sepsis due to unspecified organism Qualified Code(s): A41.9 - Sepsis, unspecified organism Is this a current diagnosis for this admission?: Yes (2) Type 2 diabetes mellitus Qualifiers: Diabetes mellitus supervisor floor assembly insulin use: with supervisor floor assembly use Diabetes mellitus complication status: without complication Qualified Code(s): E11.9 - Type 2 diabetes mellitus without complications; Z79.4 - ditch tender (current) use of insulin; Z79.4 - half-way (current) use of insulin; Z79.4 - half-way ( current) use of insulin; Z79.4 - half-way (current) use of insulin Is this a current diagnosis for this admission?: Yes (3) Metabolic encephalopathy Is this a current diagnosis for this admission?: Yes (4) UTI (urinary tract infection) Qualifiers: Urinary tract infection type: site unspecified Hematuria presence: without hematuria Qualified Code(s): N39.0 - Urinary tract infection, site not specified Is this a current diagnosis for this admission?: Yes (5) Gram negative septicemia Is this a current diagnosis for this admission?: Yes (6) Hypomagnesemia Is this a current diagnosis for this admission?: Yes (7) Hypoalbuminemia Is this a current diagnosis for this admission?: Yes (8) UTI due to extended-spectrum beta lactamase (ESBL) producing Escherichia coli Is this a current diagnosis for this admission?: Yes - Plan Summary Plan Summary: Continue IV antibiotic
[2018-08-19] MEDS: HEPARIN SOD (PORCINE) 5,000 UNIT/ML 1 ML SYRINGE SUBCUT SCH ×3 (05:45→22:13)
[2018-08-19] MEDS: LANSOPRAZOLE 30 MG TAB.RAP.DR PO SCH (05:46)
[2018-08-19] MEDS: NORMAL SALINE 1000 ML 1,000 ML IV PRN (05:47)
[2018-08-19] MEDS: METFORMIN HCL 500 MG TABLET PO SCH ×2 (08:31→18:28)
[2018-08-19] MEDS: SITAGLIPTIN PHOSPHATE 50 MG TABLET PO SCH (09:27)
[2018-08-19] MEDS: CALCIUM CARBONATE 500 MG TABLET PO SCH (09:28)
[2018-08-19] MEDS: CITALOPRAM HYDROBROMIDE 20 MG TABLET PO SCH (09:28)
[2018-08-19] MEDS: OXYBUTYNIN CHLORIDE 5 MG TABLET PO SCH ×2 (09:28→18:29)
[2018-08-19] MEDS: ASPIRIN 81 MG TABLET, CHEWABLE PO SCH (09:28)
[2018-08-19] MEDS: FERROUS SULFATE 325 MG TABLET PO SCH (09:28)
[2018-08-19] MEDS: MAGNESIUM OXIDE 400 MG TABLET PO SCH (09:28)
[2018-08-19] MEDS: DOCUSATE SODIUM 100 MG CAPSULE PO SCH ×2 (11:41→18:28)
[2018-08-19] MEDS: ERTAPENEM SODIUM 1 GM in NORMAL SALINE 50 ML IV SCH (11:41)
[2018-08-19 16:19] LABS: HEMATOCRIT 33.9 % (36.0-47.0); HEMOGLOBIN 11.5 g/dL (12.0-15.5); MEAN CORPUSCULAR HEMOGLOBIN 29.5 pg (27.0-33.4); MEAN CORPUSCULAR HGB CONC 33.9 g/dL (32.0-36.0); MEAN CORPUSCULAR VOLUME 87 fl (80-97); PLATELET COUNT 249 10^3/uL (150-450); RED BLOOD COUNT 3.89 10^6/uL (3.72-5.28); RED CELL DISTRIBUTION WIDTH 14.6 % (11.5-14.0); WHITE BLOOD COUNT 9.2 10^3/uL (4.0-10.5)
[2018-08-19 16:41] LABS: ABSOLUTE LYMPHOCYTES# (MANUAL) 2.4 10^3/uL (0.5-4.7); ABSOLUTE MONOCYTES # (MANUAL) 0.7 10^3/uL (0.1-1.4); ABSOLUTE NEUTROPHILS# (MANUAL) 5.9 10^3/uL (1.7-8.2); BASOPHILS % (MANUAL) 0 % (0-2); EOSINOPHILS % (MANUAL) 2 % (0-6); LYMPHOCYTES % (MANUAL) 26 % (13-45); MONOCYTES % (MANUAL) 8 % (3-13); SEGMENTED NEUTROPHILS % (MAN) 64 % (42-78); TOTAL CELLS COUNTED 100
[2018-08-19 16:43] LABS: PLATELET COMMENT ADEQUATE; RBC MORPHOLOGY COMMENT NORMO-CYTIC/CHROMIC
[2018-08-19 16:47] LABS: ALANINE AMINOTRANSFERASE 38 U/L (9-52); ALBUMIN 3.1 g/dL (3.5-5.0); ALKALINE PHOSPHATASE 78 U/L (38-126); ANION GAP 8 (5-19); ASPARTATE AMINO TRANSFERASE 26 U/L (14-36); BILIRUBIN,DIRECT 0.2 mg/dL (0.0-0.4); BILIRUBIN,TOTAL 0.3 mg/dL (0.2-1.3); BLOOD UREA NITROGEN 5 mg/dL (7-20); CALCIUM 9.7 mg/dL (8.4-10.2); CARBON DIOXIDE 28 mmol/L (22-30); CHLORIDE 105 mmol/L (98-107); GLUCOSE 116 mg/dL (75-110); SODIUM 141.4 mmol/L (137-145)
[2018-08-19] MEDS: SIMVASTATIN 40 MG TABLET PO SCH (18:28)
[2018-08-19] MEDS: MAGNESIUM SULFATE 1 GM/D5W 100 ML IV SCH ×2 (18:50→21:00)
--- NOTE | 2018-08-19 19:22 | PDOC PROGRESS REPORT ---
Subjective Progress Note for:: 08/19/18 Subjective:: Patient seen at the bedside,Presently on IV antibiotic Reason For Visit: UROSEPSIS WITH HYPOTENSION Physical Exam Vital Signs: Temp Pulse Resp BP Pulse Ox 98.6 F 72 16 136/57 H 99 08/19/18 15:38 08/19/18 15:38 08/19/18 15:38 08/19/18 15:38 08/19/18 15:38 Intake & Output 08/18/18 08/19/18 08/20/18 06:59 06:59 06:59 Intake Total 1451 3037 688 Output Total 2800 6695 1200 Balance -0700 -615 -499 Weight 62.9 kg 63.5 kg General appearance: PRESENT: no acute distress Eye exam: PRESENT: PERRLA Respiratory exam: PRESENT: clear to auscultation taylor Cardiovascular exam: PRESENT: +S1, +S2 GI/Abdominal exam: PRESENT: soft Neurological exam: PRESENT: alert, CN II-XII grossly intact Results Laboratory Results: 08/19/18 16:07 08/19/18 16:07 08/19/18 08/19/18 16:07 16:07 WBC 9.2 RBC 3.89 Hgb 11.5 L Hct 33.9 L MCV 87 MCH 29.5 MCHC 33.9 RDW 14.6 H Plt Count 249 Seg Neutrophils % Not Reportable Lymphocytes % Not Reportable Monocytes % Not Reportable Eosinophils % Not Reportable Basophils % Not Reportable Absolute Neutrophils Not Reportable Absolute Lymphocytes Not Reportable Absolute Monocytes Not Reportable Absolute Eosinophils Not Reportable Absolute Basophils Not Reportable Sodium 141.4 Potassium 4.0 Chloride 105 Carbon Dioxide 28 Anion Gap 8 BUN 5 L Creatinine 0.51 L Est GFR ( Amer) > 60 Est GFR (Non-Af Amer) > 60 Glucose 116 H Calcium 9.7 Magnesium 1.0 L* Total Bilirubin 0.3 AST 26 ALT 38 Alkaline Phosphatase 78 Total Protein 6.0 L Albumin 3.1 L Impressions: Chest X-Ray 08/12/18 01:48 IMPRESSION: 1. No acute pneumonic process identified. Guidance Fluoroscopy 08/17/18 00:00 IMPRESSION: SUCCESSFUL PLACEMENT OF A 5 FR DUAL LUMEN 36 CM PICC IN THE RIGHT BASILIC VEIN. Attempted placement in the left basilic vein was unsuccessful. Interventional Vascular Procedure 08/17/18 00:00 IMPRESSION: SUCCESSFUL PLACEMENT OF A 5 FR DUAL LUMEN 36 CM PICC IN THE RIGHT BASILIC VEIN. Attempted placement in the left basilic vein was unsuccessful. PICC Line Insertion 08/17/18 00:00 IMPRESSION: SUCCESSFUL PLACEMENT OF A 5 FR DUAL LUMEN 36 CM PICC IN THE RIGHT BASILIC VEIN. Attempted placement in the left basilic vein was unsuccessful. Assessment & Plan - Diagnosis (1) Sepsis Qualifiers: Sepsis type: sepsis due to unspecified organism Qualified Code(s): A41.9 - Sepsis, unspecified organism Is this a current diagnosis for this admission?: Yes (2) Type 2 diabetes mellitus Qualifiers: Diabetes mellitus alf insulin use: with alf use Diabetes mellitus complication status: without complication Qualified Code(s): E11.9 - Type 2 diabetes mellitus without complications; Z79.4 - prison (current) use of insulin; Z79.4 - prison (current) use of insulin; Z79.4 - prison ( current) use of insulin; Z79.4 - bridge ironworker helper (current) use of insulin Is this a current diagnosis for this admission?: Yes (3) Metabolic encephalopathy Is this a current diagnosis for this admission?: Yes (4) UTI (urinary tract infection) Qualifiers: Urinary tract infection type: site unspecified Hematuria presence: without hematuria Qualified Code(s): N39.0 - Urinary tract infection, site not specified Is this a current diagnosis for this admission?: Yes (5) Gram negative septicemia Is this a current diagnosis for this admission?: Yes (6) Hypomagnesemia Is this a current diagnosis for this admission?: Yes (7) Hypoalbuminemia Is this a current diagnosis for this admission?: Yes (8) UTI due to extended-spectrum beta lactamase (ESBL) producing Escherichia coli Is this a current diagnosis for this admission?: Yes - Plan Summary Plan Summary: Continue treatment
[2018-08-20] MEDS: HEPARIN SOD (PORCINE) 5,000 UNIT/ML 1 ML SYRINGE SUBCUT SCH ×2 (05:56→13:18)
[2018-08-20] MEDS: LANSOPRAZOLE 30 MG TAB.RAP.DR PO SCH (05:56)
[2018-08-20] MEDS ORDERED: NORMAL SALINE 10 ML SDV (AFTER EACH USE) IV PRN (08:17)
[2018-08-20] MEDS ORDERED: NORMAL SALINE 10 ML SDV (SCHEDULED) IV SCH (10:00)
[2018-08-20] MEDS: METFORMIN HCL 500 MG TABLET PO SCH ×2 (10:34→18:01)
[2018-08-20] MEDS: ASPIRIN 81 MG TABLET, CHEWABLE PO SCH (10:35)
[2018-08-20] MEDS: DOCUSATE SODIUM 100 MG CAPSULE PO SCH ×2 (10:35→18:01)
[2018-08-20] MEDS: CALCIUM CARBONATE 500 MG TABLET PO SCH (10:35)
[2018-08-20] MEDS: OXYBUTYNIN CHLORIDE 5 MG TABLET PO SCH ×2 (10:35→18:01)
[2018-08-20] MEDS: CITALOPRAM HYDROBROMIDE 20 MG TABLET PO SCH (10:35)
[2018-08-20] MEDS: SITAGLIPTIN PHOSPHATE 50 MG TABLET PO SCH (10:35)
[2018-08-20] MEDS: FERROUS SULFATE 325 MG TABLET PO SCH (10:35)
[2018-08-20] MEDS: MAGNESIUM OXIDE 400 MG TABLET PO SCH (10:35)
[2018-08-20] MEDS: NORMAL SALINE 1000 ML 1,000 ML IV PRN (10:36)
[2018-08-20] MEDS: ERTAPENEM SODIUM 1 GM in NORMAL SALINE 50 ML IV SCH (11:41)
[2018-08-20] MEDS: INSULIN LISPRO 100 UNIT/ML 3 ML VIAL SUBCUT PRN (13:17)
--- NOTE | 2018-08-20 17:06 | PDOC DISCHARGE SUMMARY ---
General - Admit/Disc Date/PCP Admission Date/Primary Care Provider: 08/12/18 08:20 WES MAGDALENO MD Discharge Date: 08/20/18 - Discharge Diagnosis (1) Sepsis Is this a current diagnosis for this admission?: Yes (2) Type 2 diabetes mellitus Is this a current diagnosis for this admission?: Yes (3) Metabolic encephalopathy Is this a current diagnosis for this admission?: Yes (4) UTI (urinary tract infection) Is this a current diagnosis for this admission?: Yes (5) Gram negative septicemia Is this a current diagnosis for this admission?: Yes (6) Hypomagnesemia Is this a current diagnosis for this admission?: Yes (7) Hypoalbuminemia Is this a current diagnosis for this admission?: Yes (8) UTI due to extended-spectrum beta lactamase (ESBL) producing Escherichia coli Is this a current diagnosis for this admission?: Yes - Additional Information Resuscitation Status: Full Code Prescriptions: Magnesium Oxide [Mag-Ox 400 mg Tablet] 400 mg PO DAILY #90 tablet Home Medications: Amlodipine Besylate [Norvasc 5 mg Tablet] 5 mg PO DAILY 08/12/18 Calcium Carbonate [Calcium] 600 mg PO DAILY 08/12/18 Citalopram Hydrobromide [Celexa 10 mg Tablet] 10 mg PO DAILY 08/12/18 Insulin Lispro [Humalog Insulin (Lispro) 100 unit/mL] 0 unit SUBCUT .SLD SCALE 08/12/18 Iron 65 mg PO DAILY 08/12/18 Metformin HCl [Glucophage] 1,000 mg PO BID 08/12/18 Oxybutynin Chloride [Ditropan 5 mg Tablet] 5 mg PO BID 08/12/18 Pantoprazole Sodium [Protonix] 40 mg PO DAILY 08/12/18 Saccharomyces Boulardii [Probiotic] 250 mg PO DAILY 08/12/18 Simvastatin [Zocor 40 mg Tablet] 40 mg PO QPM 08/12/18 Sitagliptin Phosphate [Januvia] 100 mg PO DAILY 08/12/18 Aspirin [Aspirin 81 mg Chewable Tablet] 81 mg PO DAILY tab.chew 08/16/18 Docusate Sodium [Colace 100 mg Capsule] 100 mg PO BID capsule 08/16/18 Magnesium Oxide [Mag-Ox 400 mg Tablet] 400 mg PO DAILY #90 tablet 08/16/18 History of Present Illness History of Present Illness: TAMIE HAJI is a 77 year old female she has a history of type 2 diabetes mellitus requiring insulin, essential hypertension, chronic obstructive lung disease, dementia she was transferred to the emergency room for evaluation of altered mental status, she was confused. She was evaluated in the emergency room, she was found to have a low blood pressure, 97/78 blood pressure, temperature 102.8, she was treated with IV fluid, IV antibiotic and intravenous , norepinephrine. When I saw the patient in the emergency room she was more responsive, still somewhat confused, she does not recognize me, she has a [place] catheter that was inserted in the ER, the urine appearance was cloudy with sediment suggesting that she probably a UTI, the laboratory called that the blood culture was growing gram-negative rods. She probably has gram-negative sepsis. There is also lactic acidosis. Hospital Course Hospital Course: Patient was admitted for the management of sepsis due to UTI, she was initially treated empirically with IV Rocephin before the culture results came back, the culture came back as ESBL E. coli, the antibiotic was changed to ertapenem, she also had hypomagnesemia, this was replaced. Physical Exam Vital Signs: Temp Pulse Resp BP Pulse Ox 98.6 F 64 14 147/48 H 97 08/20/18 15:18 08/20/18 15:18 08/20/18 15:18 08/20/18 15:18 08/20/18 15:18 Intake & Output 08/19/18 08/20/18 08/21/18 06:59 06:59 06:59 Intake Total 3037 2590 553 Output Total 6761 4870 1300 Balance -438 260 -037 Weight 63.5 kg 63.4 kg General appearance: PRESENT: no acute distress Eye exam: PRESENT: PERRLA Respiratory exam: PRESENT: clear to auscultation taylor Cardiovascular exam: PRESENT: +S1, +S2 GI/Abdominal exam: PRESENT: soft Neurological exam: PRESENT: alert, CN II-XII grossly intact Results Laboratory Results: 08/19/18 16:07 08/19/18 16:07 08/19/18 16:07 Sodium 141.4 Potassium 4.0 Chloride 105 Carbon Dioxide 28 Anion Gap 8 BUN 5 L Creatinine 0.51 L Est GFR ( Amer) > 60 Est GFR (Non-Af Amer) > 60 Glucose 116 H Calcium 9.7 Magnesium 1.0 L* Total Bilirubin 0.3 AST 26 ALT 38 Alkaline Phosphatase 78 Total Protein 6.0 L Albumin 3.1 L Impressions: Chest X-Ray 08/12/18 01:48 IMPRESSION: 1. No acute pneumonic process identified. Guidance Fluoroscopy 08/17/18 00:00 IMPRESSION: SUCCESSFUL PLACEMENT OF A 5 FR DUAL LUMEN 36 CM PICC IN THE RIGHT BASILIC VEIN. Attempted placement in the left basilic vein was unsuccessful. Interventional Vascular Procedure 08/17/18 00:00 IMPRESSION: SUCCESSFUL PLACEMENT OF A 5 FR DUAL LUMEN 36 CM PICC IN THE RIGHT BASILIC VEIN. Attempted placement in the left basilic vein was unsuccessful. PICC Line Insertion 08/17/18 00:00 IMPRESSION: SUCCESSFUL PLACEMENT OF A 5 FR DUAL LUMEN 36 CM PICC IN THE RIGHT BASILIC VEIN. Attempted placement in the left basilic vein was unsuccessful. Qualifiers - * PATIENT BEING DISCHARGED WITH ANY OF THE FOLLOWING DIAGNOSIS: No
[2018-08-20 17:50] VITALS: BP 162/52
[2018-08-20] MEDS: SIMVASTATIN 40 MG TABLET PO SCH (18:01)
== END 2018-08-20 19:00 | disposition home or self-care (01) | DRG 871 ==
LOC: ER 01:34 → EH 08:20 → ICU 14:30 → 4N 08-15 06:17
PROVIDERS: ADMIT Emergency Medicine; ATTEND Internal Medicine
PROC: 02HV33Z Insertion of Infusion Device into Superior Vena Cava, Percutaneous Approach (ICD-10-PCS; principal; 2018-08-17)
PROC: B548ZZA Ultrasonography of Superior Vena Cava, Guidance (ICD-10-PCS; 2018-08-17)
PROC: B518ZZA Fluoroscopy of Superior Vena Cava, Guidance (ICD-10-PCS; 2018-08-17)
DX: A41.51 Sepsis due to Escherichia coli [E. coli] (principal); G93.41 Metabolic encephalopathy; N39.0 Urinary tract infection, site not specified; E87.2 Acidosis; I95.9 Hypotension, unspecified; E11.9 Type 2 diabetes mellitus without complications; E83.42 Hypomagnesemia; E88.09 Other disorders of plasma-protein metabolism, not elsewhere classified; F03.90 Unspecified dementia, unspecified severity, without behavioral disturbance, psychotic disturbance, mood disturbance, and anxiety; E78.00 Pure hypercholesterolemia, unspecified; I10 Essential (primary) hypertension; K21.9 Gastro-esophageal reflux disease without esophagitis; I25.2 Old myocardial infarction; Z79.82 Long term (current) use of aspirin; Z79.4 Long term (current) use of insulin; Z79.899 Other long term (current) drug therapy; Z90.49 Acquired absence of other specified parts of digestive tract; Z90.710 Acquired absence of both cervix and uterus
CPT/HCPCS: 36415; 36569; 51702; 71045; 76937; 77001; 80048; 80053; 81001; 82570; 82803; 82962; 83605; 83735; 84156; 85025; 85610; 87040; 87077; 87086; 87088; 87186; 87804; 93005; 93010; 96361; 96365; 96366; 96367; 99291; J0696; J1335; J1642; J1644; J1815; J2543; J3475; J3490; J7060; S0164

== ENCOUNTER 2018-11-24 19:29 | Emergency (ER) | payer MEDICARE, OTHER ==
--- NOTE | 2018-11-24 19:37 | ER Document Report ---
ED Fall - General Chief Complaint: Fall Stated Complaint: FALL Time Seen by Provider: 11/24/18 19:37 Mode of Arrival: Stretcher Information source: Patient Notes: Patient is a 78-year-old female with a history of COPD, diabetes, hypertension, recurrent UTIs, and frequent falls who presents after mechanical fall with right hip pain. Patient reports that she was attempting to stand from her bed, she reached for her walker but slid and fell to the floor. She reports landing on her bottom and right hip experiencing pain. Pain is aching in sensation, described as mild, no radiation. Patient does not remember whether or not she hit her head but does not think so. She currently feels to be at her normal self other than mild right hip pain. Of note, patient was recently treated for a urinary tract infection over a week ago with Macrobid, antibiotic course has been completed and the patient feels improvement. She denies fevers or chills, no chest pain or shortness of breath, no abdominal pain. TRAVEL OUTSIDE OF THE [place] IN LAST 30 DAYS: No - HPI Occurred: Just prior to arrival Where: Home Context: Fell from standing Associated symptoms: denies: Lost consciousness, Difficulty breathing Location of injury/pain: Hip Quality of pain: Achy Severity: Mild Pain Level: 1 - Related data Allergies/Adverse Reactions: No Known Allergies Allergy (Verified 08/12/18 13:29) Past Medical History - General Information source: Patient - Social History Smoking Status: Former Smoker Cigarette use (# per day): No Frequency of alcohol use: None Drug Abuse: None Lives with: Long-Term Family History: Reviewed & Not Pertinent Patient has suicidal ideation: No Patient has homicidal ideation: No - Past Medical History Cardiac Medical History: Reports: Hx Heart Attack, Hx Hypercholesterolemia, Hx Hypertension Pulmonary Medical History: Reports: Hx COPD EENT Medical History: Reports: None Neurological Medical History: Reports: None Endocrine Medical History: Reports: Hx Diabetes Mellitus Type 2 Renal/ Medical History: Reports: None. Denies: Hx Peritoneal Dialysis Malignancy Medical History: Reports: None GI Medical History: Reports: Hx Gastroesophageal Reflux Disease Musculoskeletal Medical History: Reports None Skin Medical History: Reports None Psychiatric Medical History: Reports: None Traumatic Medical History: Reports: None Infectious Medical History: Reports: None Past Surgical History: Reports: Hx Abdominal Surgery, Hx Cholecystectomy, Hx Hysterectomy - Immunizations Immunizations up to date: Yes Hx Diphtheria, Pertussis, Tetanus Vaccination: Yes History of Influenza Vaccine for 08/2017 - 01/2018 Season: Unknown Review of Systems - Review of Systems Constitutional: No symptoms reported EENT: No symptoms reported Cardiovascular: No symptoms reported Respiratory: No symptoms reported Gastrointestinal: No symptoms reported Genitourinary: No symptoms reported Female Genitourinary: No symptoms reported Musculoskeletal: See HPI, Joint pain, Leg swelling Skin: No symptoms reported Hematologic/Lymphatic: No symptoms reported Neurological/Psychological: No symptoms reported -: Yes All other systems reviewed and negative Physical Exam - Vital signs Vitals: Temp Pulse 98.3 F 73 11/24/18 20:07 11/24/18 20:07 Interpretation: Normal - Notes Notes: Well-appearing in no acute distress - General General appearance: Appears well, Alert - HEENT Head: Normocephalic, Atraumatic Eyes: Normal Pupils: PERRL - Respiratory Respiratory status: No respiratory distress Chest status: Nontender Breath sounds: Normal Chest palpation: Normal - Cardiovascular Rhythm: Regular Heart sounds: Normal auscultation Murmur: No - Abdominal Inspection: Normal Distension: No distension Bowel sounds: Normal Tenderness: Nontender Organomegaly: No organomegaly - Rectal Notes: Deferred - Genitourinary Notes: Deferred - Back Back: Normal, Nontender - Extremities General upper extremity: Normal inspection, Nontender, Normal color, Normal ROM, Normal temperature General lower extremity: Normal inspection, Normal color, Normal ROM, Normal temperature, Normal weight bearing. No: Anusha's sign Hip: Normal - Right, Tender - Mild. No: Deformity, Ecchymosis, Instability Thigh: Normal - Left, Tender - Mild. No: Deformity, Ecchymosis, Instability - Neurological Neuro grossly intact: Yes Cognition: Normal Orientation: AAOx4 Zenno Coma Scale Eye Opening: Spontaneous Edgard Coma Scale Verbal: Oriented Zenon Coma Scale Motor: Obeys Commands Zenon Coma Scale Total: 15 Speech: Normal Motor strength normal: LUE, RUE, LLE, RLE Sensory: Normal - Psychological Associated symptoms: Normal affect, Normal mood - Skin Skin Temperature: Warm Skin Moisture: Dry Skin Color: Normal Course - Re-evaluation Re-evalutation: 11/24/18 20:12 Patient has mild pain in the right hip and left thigh on exam, however has full range of motion with little effort, no bruising or evidence of internal trauma. Given unknown nature and etiology of her fall, will obtain blood work with urine and head CT. 11/24/18 21:44 CT and x-ray imaging are negative for acute injury. Urinalysis shows either residual cystitis versus recurrent early urinary infection. Patient will be discharged home with return precautions and prescription for both antibiotics and anti-inflammatory medications. She will need to follow-up with her primary physician, patient voices understanding and agreeing with the plan. - Vital Signs Vital signs: Temp Pulse Resp BP Pulse Ox 98.3 F 73 11/24/18 20:07 11/24/18 20:07 - Laboratory Laboratory results interpreted by me: 11/24/18 11/24/18 19:40 20:52 POC Glucose 116 H Urine Protein 30 H Urine Urobilinogen 2.0 H Ur Leukocyte Esterase LARGE H - Diagnostic Test Radiology reviewed: Reports reviewed - EKG Interpretation by Me EKG shows normal: Sinus rhythm Rate: Normal Rhythm: NSR Gentry/QRS: No: Right axis deviation, Left axis deviation, RBBB, LBBB, IVCD, LAHB/LAFB, LPHB/LPFB, Bifasicular block P Waves: No: NATALIIA, LAE, Absent, AV Dissociation, Other Heart block present: No: 1st Degree, Mobitz 1, Mobitz 2, CHB (3rd degree block) When compared to previous EKG there are: No significant change Discharge - Discharge Clinical Impression: Frequent falls, Cystitis Condition: Good Disposition: HOME, SELF-CARE Additional Instructions: Remember to always have hold of your walker before trying to ambulate. Do not be afraid to ask for help if you feel unsteady or weak. Your x-rays are normal and show no evidence of acute injury. The urine sample does have residual inflammation which could represent untreated infection or an early new infection, either way you have been prescribed antibiotics to be taken as instructed. Please follow-up with your regular physician in 1 week to have the urine sample rechecked for adequate treatment. Return to the emergency department if you experience confusion, weakness, or have any other concerning symptom. Prescriptions: Diclofenac Sodium 75 mg PO BID PRN #30 tablet.dr CALHOUN Reason: For Pain Sulfamethoxazole/Trimethoprim [Bactrim Ds Tablet] 1 each PO BID #28 tablet Referrals: DEE PRICE MD [Primary Care Provider] - Follow up as needed Print Language: Slovenian
--- NOTE | 2018-11-24 20:33 | RADIOLOGY REPORT (SQ) ---
EXAM DESCRIPTION: CT HEAD WITHOUT COMPLETED DATE/TIME: 11/24/2018 8:23 pm REASON FOR STUDY: Head injury COMPARISON: 04/13/2018. TECHNIQUE: Axial images acquired through the brain without intravenous contrast. Images reviewed wi th bone, brain and subdural windows. Additional sagittal and coronal reconstructions were generated. Images stored on PACS. All CT scanners at this facility use dose modulation, iterative reconstruction, and/or weight based d osing when appropriate to reduce radiation dose to as low as reasonably achievable (ALARA). [facility]: Dose Right [facility]: CareDose [facility]: Dose Right [facility]: Teradose 4D [facility]: Smart Qufenqi RADIATION DOSE: CT Rad equipment meets quality standard of care and radiation dose reduction techniq ues were employed. CTDIvol: 53.2 mGy. DLP: 937 mGy-cm.mGy. LIMITATIONS: None. FINDINGS: VENTRICLES: Prominent. CEREBRUM: No masses. No hemorrhage. No midline shift. Areas of low density in the white matter mos t likely due to chronic micro-vascular ischemic change. No evidence for acute infarction. CEREBELLUM: No masses. No hemorrhage. No alteration of density. No evidence for acute infarction. EXTRAAXIAL SPACES: Age-related involutional change. No fluid collections. No masses. ORBITS AND GLOBE: No intra- or extraconal masses. Normal contour of globe without masses. CALVARIUM: No fracture. PARANASAL SINUSES: No fluid or mucosal thickening. SOFT TISSUES: No mass or hematoma. OTHER: No other significant finding. IMPRESSION: CHRONIC CHANGES OF ATROPHY AND MICROVASCULAR ISCHEMIA. NO ACUTE PROCESS. EVIDENCE OF ACUTE STROKE: NO. TECHNICAL DOCUMENTATION: JOB ID: [id number] Quality ID # [id number]: Final reports with documentation of one or more dose reduction techniques (e.g., Au tomated exposure control, adjustment of the mA and/or kV according to patient size, use of iterative reconstruction technique) 2010 [employer]- All Rights Reserved Reading location - IP/workstation name: [email or web address]
--- NOTE | 2018-11-24 20:51 | RADIOLOGY REPORT (SQ) ---
EXAM DESCRIPTION: FEMUR LEFT COMPLETED DATE/TIME: 11/24/2018 8:41 pm REASON FOR STUDY: Fall COMPARISON: None. NUMBER OF VIEWS: Two views. TECHNIQUE: Two radiographic images acquired of the left femur to include hip and knee in at least on e projection. LIMITATIONS: None. FINDINGS: MINERALIZATION: Normal. BONES: No acute fracture. No worrisome bone lesions. SOFT TISSUES: No obvious swelling or foreign body. OTHER: No other significant finding. IMPRESSION: NEGATIVE STUDY OF THE LEFT FEMUR. NO RADIOGRAPHIC EVIDENCE OF ACUTE INJURY. TECHNICAL DOCUMENTATION: JOB ID: [id number] [employer]- All Rights Reserved Reading location - IP/workstation name: [email or web address] [id number]
--- NOTE | 2018-11-24 20:53 | RADIOLOGY REPORT (SQ) ---
EXAM DESCRIPTION: CHEST SINGLE VIEW COMPLETED DATE/TIME: 11/24/2018 8:41 pm REASON FOR STUDY: Weakness COMPARISON: 09/03/2013. EXAM PARAMETERS: NUMBER OF VIEWS: One view. TECHNIQUE: Single frontal radiographic view of the chest acquired. RADIATION DOSE: NA LIMITATIONS: None. FINDINGS: LUNGS AND PLEURA: No opacities, masses or pneumothorax. No pleural effusion. MEDIASTINUM AND HILAR STRUCTURES: No masses. Contour normal. HEART AND VASCULAR STRUCTURES: Heart normal in size. Normal vasculature. BONES: No acute findings. Chronic appearing deformities in the right and left humerus. HARDWARE: None in the chest. OTHER: No other significant finding. IMPRESSION: NO ACUTE RADIOGRAPHIC FINDING IN THE CHEST. TECHNICAL DOCUMENTATION: JOB ID: [id number] [employer]- All Rights Reserved Reading location - IP/workstation name: [email or web address]
--- NOTE | 2018-11-24 20:53 | RADIOLOGY REPORT (SQ) ---
EXAM DESCRIPTION: HIP RIGHT AP/LATERAL COMPLETED DATE/TIME: 11/24/2018 8:41 pm REASON FOR STUDY: Fall COMPARISON: 04/13/2018. NUMBER OF VIEWS: Two views. TECHNIQUE: AP pelvis and additional frog-leg view of the right hip. LIMITATIONS: None. FINDINGS: MINERALIZATION: Normal. RIGHT HIP: No fracture or dislocation. No worrisome bone lesions. LEFT HIP: No fracture or dislocation. No worrisome bone lesions. PUBIS AND ISCHIUM: No fracture. PELVIS: No fracture. SACRUM: No fracture or dislocation. No worrisome bone lesions. LOWER LUMBAR SPINE: No fracture or dislocation. No worrisome bone lesions. No significant disc disea se. SOFT TISSUES: No findings. OTHER: No other significant finding. IMPRESSION: NEGATIVE STUDY OF THE RIGHT HIP. NO RADIOGRAPHIC EVIDENCE OF ACUTE INJURY. TECHNICAL DOCUMENTATION: JOB ID: [id number] [employer]- All Rights Reserved Reading location - IP/workstation name: [email or web address]
[2018-11-24 21:19] LABS: APPEARANCE,URINE CLOUDY; BILIRUBIN,URINE NEGATIVE (NEGATIVE); GLUCOSE, URINE NEGATIVE (NEGATIVE); KETONES,URINE NEGATIVE (NEGATIVE); LEUKOCYTE ESTERASE,URINE LARGE (NEGATIVE); NITRITE,URINE NEGATIVE (NEGATIVE); PROTEIN,URINE 30 mg/dL (NEGATIVE); URINE SPECIFIC GRAVITY 1.017
[2018-11-24 21:22] LABS: COLOR,URINE YELLOW
[2018-11-24 22:06] VITALS: BP 180/62
--- NOTE | 2018-11-25 17:24 | EKG REPORT ---
SEVERITY:- ABNORMAL ECG - SINUS RHYTHM MULTIFORM VENTRICULAR PREMATURE COMPLEXES : Confirmed by: Giovana Morales MD 25-Nov-2018 17:23:15
== END 2018-11-25 00:02 | disposition home or self-care (01) ==
LOC: ER 19:29
DX: M25.551 Pain in right hip (principal); M79.652 Pain in left thigh; M79.89 Other specified soft tissue disorders; W01.0XXA Fall on same level from slipping, tripping and stumbling without subsequent striking against object, initial encounter; Y93.89 Activity, other specified; Y92.003 Bedroom of unspecified non-institutional (private) residence as the place of occurrence of the external cause; N30.90 Cystitis, unspecified without hematuria; R29.6 Repeated falls; E11.9 Type 2 diabetes mellitus without complications; J44.9 Chronic obstructive pulmonary disease, unspecified; I10 Essential (primary) hypertension; Z87.891 Personal history of nicotine dependence
CPT/HCPCS: 70450; 71045; 81001; 82962; 93005; 93010; 99284

== ENCOUNTER → 2019-03-10 | Outpatient (CLI) | payer MEDICARE | LOC: WI 12:03 | PROVIDERS: ATTEND Internal Medicine | DX: N64.52 Nipple discharge (principal) | CPT/HCPCS: 76642; 77066 ==

== ENCOUNTER → 2019-04-20 | Day surgery (SDC) | payer MEDICARE ==
[~2019-04-20] MED LIST: LIDOCAINE 1%/EPINEPHRINE INJ 20 ML VIAL ONE; LIDOCAINE 2% INJ (20 MG/ML) 20 ML MDV ONE
--- NOTE | 2019-04-22 16:55 | WOMENS IMAGING REPORT ---
EXAM DESCRIPTION: STEREO BREAST BX; LEFT DIG DX MAMMO NO CHG COMPLETED DATE/TIME: 04/20/2019 2:30 pm; 04/20/2019 2:31 pm REASON FOR STUDY: R92.8 OTH ABN AND INCONCLUSIVE FINDINGS ON DX IMAGING OF BREAST; POST STEREO R92.8 OTH ABN AND INCONCLUSIVE FINDINGS ON DX IMAGING OF GIANNI N64.9 DISORDER OF BREAST, UNSPECIFIED COMPARISON: Prior mammograms 03/10/2019 TECHNIQUE: Vacuum-assisted stereotactic-guided biopsy of the calcifications of concern in the lower inner quadrant left breast. Serial progress stereotactic and single digital images acquired. PROCEDURE: The procedure was discussed with the patient, including possible complications such as bleeding, infection, nondiagnostic sample or possible findings such as atypical ductal hyperplasia wh ich would require additional surgery. Possible clip placement was explained. The patient agreed t o the procedure. The patient was placed prone on the stereotactic table. The lesion in the breast was localized ster eotactically. The skin of the breast was prepped in sterile fashion. Superficial and deep local an esthesia was provided. A small incision was made in the skin and the biopsy probe was advanced to t he target. Using the vacuum-assisted core biopsy device, multiple core specimens were obtained. Continuous low dose infusion of local anesthesia was used during the procedure. A specimen radiograph was obtained. The radiograph demonstrated calcifications of concern in the bio psy tissue. Using cvpfggrg-[id number]-mgvaffea technique a pellet clip was deployed at the biopsy site. Mammographic image confirmed presence of the clip. The probe was then removed and hemostasis obtained with manua l compression. A compression bandage was applied. Postoperative instructions were explained to th e patient. POST-PROCEDURE TWO VIEW DIGITAL MAMMOGRAM: An additional two view mammogram was recorded in the [facility] mammographic suite. Marker clip is present at the biopsy site. LIMITATIONS: None. 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 POST PROCEDURE MAMMOGRAMS FOR MARKER PLACEMENT: Yes IMPRESSION: SUCCESSFUL STEREOTACTIC-GUIDED BIOPSY OF THE LESION IN THE LEFT BREAST. BIOPSY RESULTS ARE CONCORDANT WITH IMAGING FINDINGS. 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 BI-RA DS 6, KNOWN MALIGNANCY. APPROPRIATE ACTION SHOULD BE TAKEN. FOLLOW-UP: BI-RADS 6, KNOWN MALIGNANCY. APPROPRIATE ACTION SHOULD BE TAKEN. NOTIFICATION: THIS REPORT WAS DISCUSSED 1600 HOURS, 04/22/[address] PRICE'S NURSE AT [facility] COMMENT: Patient medication list reviewed: Yes- Quality ID# [id number]:Eligible professional attests to doc umenting in the medical record they obtained, updated, or reviewed the patient's current medications. TECHNICAL DOCUMENTATION: JOB ID: [id number] [employer]- All Rights Reserved Reading location - IP/workstation name: [email or web address]
== END ==
LOC: RAD 12:39
PROVIDERS: ATTEND Internal Medicine
DX: D05.12 Intraductal carcinoma in situ of left breast (principal); D24.2 Benign neoplasm of left breast
CPT/HCPCS: 88305 ×2; 88342; 19081; J3490 ×2

== ENCOUNTER 2020-03-29 08:20 | Day surgery (SDC) | payer MEDICARE ==
[~2020-03-29 08:20] MED LIST changes: -LIDOCAINE 1%/EPINEPHRINE INJ 20 ML VIAL ONE; -LIDOCAINE 2% INJ (20 MG/ML) 20 ML MDV ONE; +PROPOFOL INJ 200 MG/20 ML VIAL IV ONE
--- NOTE | 2020-03-29 10:39 | Operative Report ---
Operative Report DATE OF SURGERY: 03/29/20 Operative Report: The risk, benefits and alternatives of the procedure including the risk of bleeding, perforation requiring surgery have been explained to the patient in detail and informed consent has been obtained. Patient is taken back to the operating room and placed in left, lateral decubital position. Timeout was called. Propofol medication is administered. Rectal examination is done which did not reveal any masses, tears or fissures. An Olympus videoscope was introduced into the patient's rectum. The scope was then carefully advanced all the way to the cecum. The cecum was identified by the usual anatomical landmarks of the ileocecal valve as well as the appendiceal office. Photodocumentation is obtained. Scope was then sequentially pulled back via the various segments of the colon including the ascending colon, hepatic flexure, transverse colon, splenic flexure, descending colon and the rectosigmoid portions of the colon. Retroflexion maneuvers performed. PREOPERATIVE DIAGNOSIS: Change in bowel habits chronic diarrhea POSTOPERATIVE DIAGNOSIS: Colon polyp was removed via snare polypectomy. Right colon biopsies obtained rule out collagenous colitis. Internal hemorrhoids OPERATION: Colonoscopy with snare polypectomy. Colonoscopy with biopsy SURGEON: SALINA ROSARIO ANESTHESIA: LMAC TISSUE REMOVED OR ALTERED: As noted above. COMPLICATIONS: None. ESTIMATED BLOOD LOSS: None. INTRAOPERATIVE FINDINGS: As noted above. PROCEDURE: Patient tolerated the procedure well. No immediate postprocedure complications are noted. Patient is discharged in good condition. Discharge date 03/29/2020 Discharge diet: Regular. Discharge activity: Regular. 2 to 3-week follow-up to discuss findings. 3 to 5-year surveillance colonoscopy. We will wait on pathology.
[2020-03-29 11:25] VITALS: BP 170/78
== END 2020-03-29 12:00 | disposition home or self-care (01) ==
LOC: OROUT 08:20
PROVIDERS: ATTEND Internal Medicine Gastroenterology
DX: D12.6 Benign neoplasm of colon, unspecified (principal); K52.9 Noninfective gastroenteritis and colitis, unspecified; J44.9 Chronic obstructive pulmonary disease, unspecified; K64.8 Other hemorrhoids; E11.9 Type 2 diabetes mellitus without complications; Z79.82 Long term (current) use of aspirin; Z79.4 Long term (current) use of insulin
CPT/HCPCS: 45380; 45385; 82962; 88305 ×2; 00811; J2704; 811